=== PATIENT | female | born 1945 | race Caucasian/White ===

== ENCOUNTER → 2016-07-12 | Outpatient (CLI) | payer MEDICARE ==
[~2016-07-12] MED LIST: ALLO10TA PO; CARV25TA PO; CO Q100C10 PO; CYMB60CA3 PO; DILT240C77 PO; FENO145T PO; HYDR-4266 PO; INSUH10VL SC; K-TA10TA2 PO; KLON0.5T PO; LASI20TA PO; LEVEINJ SC; LEVO112T2 PO; LISI40TAB PO; LIVA4TAB PO; MAG400TA PO; TRIC145T PO; VALI5TAB PO; VITAMIN D PO; ZOLO25TA PO; ZOLO50TA PO
[2016-07-12 17:07] LABS: ALBUMIN 3.8 GM/DL (3.2-5.2); ALBUMIN/GLOBULIN RATIO 1.15 (1.00-1.93); BILIRUBIN,TOTAL 0.4 MG/DL (0.2-1.0); CALCIUM LEVEL 9.6 MG/DL (8.8-10.2); CREATININE FOR GFR 1.86 MG/DL (0.55-1.02); GLOMERULAR FILTRATION RATE 28.4 (>39); POTASSIUM SERUM 4.6 MEQ/L (3.5-5.1); TOTAL PROTEIN 7.1 GM/DL (6.4-8.2)
== END ==
LOC: M WUC 10:36
PROVIDERS: ATTEND Physician Assistant
DX: N18.3 Chronic kidney disease, stage 3 (moderate) (principal); E78.2 Mixed hyperlipidemia; E11.21 Type 2 diabetes mellitus with diabetic nephropathy

== ENCOUNTER → 2016-10-12 | Outpatient (CLI) | payer MEDICARE ==
[2016-10-12 15:37] LABS: ALBUMIN 3.5 GM/DL (3.2-5.2); ALBUMIN/GLOBULIN RATIO 1.06 (1.00-1.93); BILIRUBIN,TOTAL 0.3 MG/DL (0.2-1.0); CALCIUM LEVEL 9.5 MG/DL (8.8-10.2); FREE T4 1.27 NG/DL (0.76-1.46); GLOMERULAR FILTRATION RATE 26.1 (>39); POTASSIUM SERUM 4.5 MEQ/L (3.5-5.1); TOTAL PROTEIN 6.8 GM/DL (6.4-8.2); URIC ACID 5.9 MG/DL (2.6-6.0)
== END ==
LOC: M WUC 09:47
PROVIDERS: ATTEND Family Medicine
DX: E55.9 Vitamin D deficiency, unspecified (principal); E11.21 Type 2 diabetes mellitus with diabetic nephropathy

== ENCOUNTER → 2016-12-15 | Outpatient (CLI) | payer MEDICARE ==
[~2016-12-15] MED LIST changes: +HYDR-3910 PO; -HYDR-4266 PO; -TRIC145T PO; +TRIC145T22 PO
[2016-12-15 16:42] LABS: ALBUMIN 3.9 GM/DL (3.2-5.2); ALBUMIN/GLOBULIN RATIO 1.26 (1.00-1.93); BILIRUBIN,TOTAL 0.4 MG/DL (0.2-1.0); CALCIUM LEVEL 9.4 MG/DL (8.8-10.2); CREATININE FOR GFR 2.07 MG/DL (0.55-1.02); GLOMERULAR FILTRATION RATE 25.1 (>39)
== END ==
LOC: M WUC 12:57
PROVIDERS: ATTEND Family Medicine
DX: E11.21 Type 2 diabetes mellitus with diabetic nephropathy (principal)

== ENCOUNTER → 2017-01-10 | Outpatient (CLI) | payer MEDICARE ==
[2017-01-10 14:18] LABS: CALCIUM LEVEL 9.8 MG/DL (8.8-10.2); CREATININE FOR GFR 1.93 MG/DL (0.55-1.02); GLOMERULAR FILTRATION RATE 27.2 (>39); POTASSIUM SERUM 4.4 MEQ/L (3.5-5.1)
== END ==
LOC: M WUC 10:34
PROVIDERS: ATTEND Physician Assistant
DX: E11.21 Type 2 diabetes mellitus with diabetic nephropathy (principal)

== ENCOUNTER → 2017-05-04 | Outpatient (CLI) | payer MEDICARE ==
[2017-05-04 11:43] LABS: BASO # 0.1 10^3/uL (0.0-0.2); BASO % 0.7 % (0.0-1.0); EOS # 0.1 10^3/uL (0.0-0.50); EOS % 1.9 % (0.0-3.0); HEMATOCRIT 36.9 % (36.0-47.0); HEMOGLOBIN 11.8 g/dl (12.0-16.0); IMMATURE GRANULOCYTE % 0.5 % (0-0); LYMPH # 0.8 10^3/uL (1.5-4.5); LYMPH % 11.1 % (24.0-44.0); MEAN CORPUSCULAR HEMOGLOBIN 29.2 pg (27.0-33.0); MEAN CORPUSCULAR VOLUME 91.3 fl (80.0-96.0); MONO # 0.6 10^3/uL (0.0-0.8); MONO % 8.1 % (0.0-5.0); NEUTROPHILS # 5.7 10^3/uL (1.8-7.7); NEUTROPHILS % 77.7 % (36.0-66.0); PLATELET COUNT, AUTOMATED 224 10^3/uL (150-450); RED BLOOD COUNT 4.04 10^6/uL (4.00-5.40); RED CELL DISTRIBUTION WIDTH 13.9 % (11.5-14.5); WHITE BLOOD COUNT 7.3 10^3/uL (4.0-10.0)
[2017-05-04 12:17] LABS: ALBUMIN 3.7 GM/DL (3.2-5.2); ALBUMIN/GLOBULIN RATIO 1.19 (1.00-1.93); ALKALINE PHOSPHATASE 36 U/L (45-117); ALT/SGPT 27 U/L (12-78); ANION GAP 6 MEQ/L (8-16); AST/SGOT 18 U/L (7-37); BILIRUBIN,TOTAL 0.4 MG/DL (0.2-1.0); BLOOD UREA NITROGEN 63 MG/DL (7-18); CALCIUM LEVEL 10.1 MG/DL (8.8-10.2); CARBON DIOXIDE LEVEL 30 MEQ/L (21-32); CHLORIDE LEVEL 105 MEQ/L (98-107); CHOLESTEROL LEVEL 239 MG/DL (<200); CHOLESTEROL RISK RATIO 4.509 (<5); FREE T4 1.26 NG/DL (0.76-1.46); GLOMERULAR FILTRATION RATE 21.1 (>39); GLUCOSE, FASTING 122 MG/DL (83-110); HDL CHOLESTEROL 53 MG/DL (>40); NON-HDL-C 186 MG/DL; POTASSIUM SERUM 4.4 MEQ/L (3.5-5.1); SODIUM LEVEL 141 MEQ/L (136-145); TOTAL PROTEIN 6.8 GM/DL (6.4-8.2); TRIGLYCERIDES LEVEL 235 MG/DL (<150)
[2017-05-04 12:18] LABS: ESTIMATED AVERAGE GLUCOSE 154 MG/DL (60-110)
[2017-05-04 12:23] LABS: CREATININE, URINE 83.4 MG/DL; MAU/CREAT RATIO 7.1 MCG/MG (0.0-30.0)
== END ==
LOC: M WUC 10:02
DX: E11.21 Type 2 diabetes mellitus with diabetic nephropathy (principal); E78.2 Mixed hyperlipidemia; E03.8 Other specified hypothyroidism
CPT/HCPCS: 84443

== ENCOUNTER → 2017-10-26 | Outpatient (CLI) | payer MEDICARE ==
[2017-10-26 13:06] LABS: BASO # 0.1 10^3/uL (0.0-0.2); BASO % 1.3 % (0.0-1.0); EOS # 0.2 10^3/uL (0.0-0.50); EOS % 3.7 % (0.0-3.0); HEMATOCRIT 35.4 % (36.0-47.0); HEMOGLOBIN 11.2 g/dl (12.0-15.5); IMMATURE GRANULOCYTE % 0.6 % (0-3.0); LYMPH % 19.2 % (24.0-44.0); MEAN CORPUSCULAR HEMOGLOBIN 28.6 pg (27.0-33.0); MEAN CORPUSCULAR HGB CONC 31.6 g/dl (32.0-36.5); MEAN CORPUSCULAR VOLUME 90.5 fl (80.0-96.0); MONO # 0.5 10^3/uL (0.0-0.8); MONO % 9.2 % (0.0-5.0); NEUTROPHILS # 3.6 10^3/uL (1.8-7.7); PLATELET COUNT, AUTOMATED 227 10^3/uL (150-450); RED BLOOD COUNT 3.91 10^6/uL (4.00-5.40); RED CELL DISTRIBUTION WIDTH 14.3 % (11.5-14.5); WHITE BLOOD COUNT 5.4 10^3/uL (4.0-10.0)
[2017-10-26 13:55] LABS: ALBUMIN 3.7 GM/DL (3.2-5.2); ALBUMIN/GLOBULIN RATIO 1.12 (1.00-1.93); ALKALINE PHOSPHATASE 35 U/L (45-117); ALT/SGPT 26 U/L (12-78); ANION GAP 10 MEQ/L (8-16); AST/SGOT 17 U/L (7-37); BILIRUBIN,TOTAL 0.3 MG/DL (0.2-1.0); BLOOD UREA NITROGEN 57 MG/DL (7-18); CALCIUM LEVEL 9.1 MG/DL (8.8-10.2); CARBON DIOXIDE LEVEL 26 MEQ/L (21-32); CHLORIDE LEVEL 108 MEQ/L (98-107); CHOLESTEROL LEVEL 256 MG/DL (<200); CHOLESTEROL RISK RATIO 5.224 (<5); FREE T4 1.11 NG/DL (0.76-1.46); GLUCOSE, FASTING 74 MG/DL (70-100); HDL CHOLESTEROL 49 MG/DL (>40); LDL CHOLESTEROL 147.4 MG/DL (<100); NON-HDL-C 207 MG/DL; POTASSIUM SERUM 4.2 MEQ/L (3.5-5.1); SODIUM LEVEL 144 MEQ/L (136-145); TRIGLYCERIDES LEVEL 298 MG/DL (<150)
== END ==
LOC: M WUC 10:35
DX: E11.21 Type 2 diabetes mellitus with diabetic nephropathy (principal); E78.2 Mixed hyperlipidemia
CPT/HCPCS: 84443

== ENCOUNTER → 2018-01-30 | Outpatient (CLI) | payer MEDICARE ==
[2018-01-30 13:13] LABS: BASO # 0.1 10^3/uL (0.0-0.2); BASO % 1.1 % (0.0-1.0); EOS # 0.1 10^3/uL (0.0-0.50); EOS % 2.6 % (0.0-3.0); HEMATOCRIT 36.9 % (36.0-47.0); HEMOGLOBIN 11.8 g/dl (12.0-15.5); IMMATURE GRANULOCYTE % 0.8 % (0-3.0); LYMPH # 0.9 10^3/uL (1.5-4.5); LYMPH % 17.6 % (24.0-44.0); MEAN CORPUSCULAR HEMOGLOBIN 29.4 pg (27.0-33.0); MEAN CORPUSCULAR VOLUME 91.8 fl (80.0-96.0); MONO # 0.6 10^3/uL (0.0-0.8); MONO % 10.8 % (0.0-5.0); NEUTROPHILS # 3.6 10^3/uL (1.8-7.7); NEUTROPHILS % 67.1 % (36.0-66.0); PLATELET COUNT, AUTOMATED 223 10^3/uL (150-450); RED BLOOD COUNT 4.02 10^6/uL (4.00-5.40); RED CELL DISTRIBUTION WIDTH 14.4 % (11.5-14.5); WHITE BLOOD COUNT 5.3 10^3/uL (4.0-10.0)
[2018-01-30 13:29] LABS: ALBUMIN 3.5 GM/DL (3.2-5.2); ALBUMIN/GLOBULIN RATIO 1.09 (1.00-1.93); ALKALINE PHOSPHATASE 39 U/L (45-117); ALT/SGPT 22 U/L (12-78); ANION GAP 7 MEQ/L (8-16); AST/SGOT 16 U/L (7-37); BILIRUBIN,TOTAL 0.3 MG/DL (0.2-1.0); BLOOD UREA NITROGEN 43 MG/DL (7-18); CALCIUM LEVEL 9.9 MG/DL (8.8-10.2); CARBON DIOXIDE LEVEL 28 MEQ/L (21-32); CHLORIDE LEVEL 110 MEQ/L (98-107); CREATININE FOR GFR 1.54 MG/DL (0.55-1.30); GLOMERULAR FILTRATION RATE 35.2 (>39); GLUCOSE, FASTING 113 MG/DL (70-100); POTASSIUM SERUM 4.4 MEQ/L (3.5-5.1); SODIUM LEVEL 145 MEQ/L (136-145); TOTAL PROTEIN 6.7 GM/DL (6.4-8.2)
[2018-01-30 17:53] LABS: ESTIMATED AVERAGE GLUCOSE 160 MG/DL (60-110); HEMOGLOBIN A1c 7.2 %
== END ==
LOC: M WUC 10:13
DX: E11.21 Type 2 diabetes mellitus with diabetic nephropathy (principal)
CPT/HCPCS: 80053

== ENCOUNTER → 2018-04-30 | Outpatient (CLI) | payer MEDICARE ==
[~2018-04-30] MED LIST changes: -FENO145T PO; +FENO145T13 PO; -LASI20TA PO; +LASI20TA3 PO
[2018-04-30 21:01] LABS: BASO # 0.1 10^3/uL (0.0-0.2); BASO % 0.5 % (0.0-1.0); EOS # 0.2 10^3/uL (0.0-0.50); EOS % 1.6 % (0.0-3.0); HEMATOCRIT 37.6 % (36.0-47.0); HEMOGLOBIN 11.6 g/dl (12.0-15.5); LYMPH % 9.8 % (24.0-44.0); MEAN CORPUSCULAR HEMOGLOBIN 28.7 pg (27.0-33.0); MEAN CORPUSCULAR HGB CONC 30.9 g/dl (32.0-36.5); MEAN CORPUSCULAR VOLUME 93.1 fl (80.0-96.0); MONO # 0.8 10^3/uL (0.0-0.8); MONO % 7.7 % (0.0-5.0); NEUTROPHILS # 7.8 10^3/uL (1.8-7.7); PLATELET COUNT, AUTOMATED 252 10^3/uL (150-450); RED BLOOD COUNT 4.04 10^6/uL (4.00-5.40); WHITE BLOOD COUNT 9.8 10^3/uL (4.0-10.0)
[2018-04-30 21:06] LABS: ALBUMIN 3.7 GM/DL (3.2-5.2); BILIRUBIN,TOTAL 0.4 MG/DL (0.2-1.0); CHOLESTEROL RISK RATIO 5.173 (<5); CREATININE FOR GFR 1.68 MG/DL (0.55-1.30); FREE T4 1.22 NG/DL (0.76-1.46); GLOMERULAR FILTRATION RATE 31.7 (>39); POTASSIUM SERUM 4.4 MEQ/L (3.5-5.1); THYROID STIMULATING HORMONE 1.71 uIU/ML (0.358-3.740); TOTAL PROTEIN 7.2 GM/DL (6.4-8.2)
[2018-04-30 21:35] LABS: HEMOGLOBIN A1c 7.7 %
== END ==
LOC: M WUC 11:24
PROVIDERS: ATTEND Physician Assistant
DX: E11.21 Type 2 diabetes mellitus with diabetic nephropathy (principal); E78.2 Mixed hyperlipidemia; G47.33 Obstructive sleep apnea (adult) (pediatric)

== ENCOUNTER → 2018-05-14 | Outpatient (REF) | payer MEDICARE | LOC: M LAB REF 16:55 | PROVIDERS: ATTEND Physician Assistant | DX: J01.00 Acute maxillary sinusitis, unspecified (principal) ==

== ENCOUNTER → 2018-06-13 | Outpatient (CLI) | payer MEDICARE ==
[2018-06-13 19:47] LABS: BASO # 0.1 10^3/uL (0.0-0.2); BASO % 0.8 % (0.0-1.0); EOS # 0.1 10^3/uL (0.0-0.50); EOS % 2.1 % (0.0-3.0); HEMATOCRIT 38.7 % (36.0-47.0); HEMOGLOBIN 12.4 g/dl (12.0-15.5); LYMPH % 16.2 % (24.0-44.0); MEAN CORPUSCULAR HEMOGLOBIN 28.8 pg (27.0-33.0); MEAN CORPUSCULAR VOLUME 89.8 fl (80.0-96.0); MONO # 0.5 10^3/uL (0.0-0.8); MONO % 7.9 % (0.0-5.0); NEUTROPHILS # 4.6 10^3/uL (1.8-7.7); NEUTROPHILS % 72.2 % (36.0-66.0); PLATELET COUNT, AUTOMATED 251 10^3/uL (150-450); RED BLOOD COUNT 4.31 10^6/uL (4.00-5.40); WHITE BLOOD COUNT 6.3 10^3/uL (4.0-10.0)
[2018-06-13 19:49] LABS: ALBUMIN 3.8 GM/DL (3.2-5.2); BILIRUBIN,TOTAL 0.3 MG/DL (0.2-1.0); CALCIUM LEVEL 9.3 MG/DL (8.8-10.2); CREATININE FOR GFR 1.62 MG/DL (0.55-1.30); GLOMERULAR FILTRATION RATE 33.1 (>39); POTASSIUM SERUM 4.6 MEQ/L (3.5-5.1); TOTAL PROTEIN 7.5 GM/DL (6.4-8.2)
== END ==
LOC: M WUC 18:17
PROVIDERS: ATTEND Physician Assistant
DX: R10.814 Left lower quadrant abdominal tenderness (principal)

== ENCOUNTER → 2018-09-03 | Outpatient (CLI) | payer MEDICARE ==
[~2018-09-03] MED LIST changes: +DILT1CAP6 PO; -DILT240C77 PO; +LISI40TA52 PO; -LISI40TAB PO
[2018-09-03 12:54] LABS: BASO # 0.1 10^3/uL (0.0-0.2); BASO % 1.2 % (0.0-1.0); EOS # 0.2 10^3/uL (0.0-0.50); LYMPH # 0.9 10^3/uL (1.5-4.5); LYMPH % 18.7 % (24.0-44.0); MEAN CORPUSCULAR HEMOGLOBIN 29.5 pg (27.0-33.0); MEAN CORPUSCULAR HGB CONC 31.6 g/dl (32.0-36.5); MEAN CORPUSCULAR VOLUME 93.4 fl (80.0-96.0); MONO # 0.5 10^3/uL (0.0-0.8); MONO % 9.4 % (0.0-5.0); NEUTROPHILS # 3.3 10^3/uL (1.8-7.7); NEUTROPHILS % 67.1 % (36.0-66.0); PLATELET COUNT, AUTOMATED 169 10^3/uL (150-450); RED BLOOD COUNT 4.07 10^6/uL (4.00-5.40)
[2018-09-03 13:12] LABS: ALBUMIN 3.5 GM/DL (3.2-5.2); BILIRUBIN,TOTAL 0.3 MG/DL (0.2-1.0); CALCIUM LEVEL 8.9 MG/DL (8.8-10.2); CHOLESTEROL RISK RATIO 4.775 (<5); CREATININE FOR GFR 1.61 MG/DL (0.55-1.30); GLOMERULAR FILTRATION RATE 33.3 (>39); POTASSIUM SERUM 4.7 MEQ/L (3.5-5.1); TOTAL PROTEIN 6.9 GM/DL (6.4-8.2)
[2018-09-03 13:43] LABS: MALB URINE SIEMENS 43.8 MG/L; MAU/CREAT RATIO 41.7 MCG/MG (0.0-30.0)
[2018-09-03 13:48] LABS: HEMOGLOBIN A1c 7.5 %
== END ==
LOC: M WUC 10:07
PROVIDERS: ATTEND Family Medicine
DX: E11.21 Type 2 diabetes mellitus with diabetic nephropathy (principal); E78.2 Mixed hyperlipidemia

== ENCOUNTER → 2018-09-13 | Outpatient (CLI) | payer MEDICARE ==
[2018-09-13 14:24] LABS: COLLAGEN EPINEPHRINE 154 SECONDS (74-162)
== END ==
LOC: M LAB 13:02
PROVIDERS: ATTEND Ophthalmology
DX: H02.831 Dermatochalasis of right upper eyelid (principal)

== ENCOUNTER → 2018-12-02 | Outpatient (CLI) | payer MEDICARE ==
[2018-12-02 13:48] LABS: BASO # 0.1 10^3/uL (0.0-0.2); EOS # 0.2 10^3/uL (0.0-0.50); EOS % 3.3 % (0.0-3.0); HEMATOCRIT 36.2 % (36.0-47.0); HEMOGLOBIN 11.4 g/dl (12.0-15.5); LYMPH # 0.9 10^3/uL (1.5-4.5); LYMPH % 18.1 % (24.0-44.0); MEAN CORPUSCULAR HEMOGLOBIN 28.6 pg (27.0-33.0); MEAN CORPUSCULAR HGB CONC 31.5 g/dl (32.0-36.5); MONO # 0.5 10^3/uL (0.0-0.8); MONO % 10.3 % (0.0-5.0); NEUTROPHILS # 3.4 10^3/uL (1.8-7.7); NEUTROPHILS % 66.5 % (36.0-66.0); PLATELET COUNT, AUTOMATED 175 10^3/uL (150-450); RED BLOOD COUNT 3.98 10^6/uL (4.00-5.40); WHITE BLOOD COUNT 5.1 10^3/uL (4.0-10.0)
[2018-12-02 14:00] LABS: ALBUMIN 3.3 GM/DL (3.2-5.2); BILIRUBIN,TOTAL 0.3 MG/DL (0.2-1.0); CALCIUM LEVEL 8.9 MG/DL (8.8-10.2); CHOLESTEROL RISK RATIO 4.627 (<5); CREATININE FOR GFR 1.5 MG/DL (0.55-1.30); FREE T4 1.05 NG/DL (0.76-1.46); GLOMERULAR FILTRATION RATE 36.1 (>39); POTASSIUM SERUM 4.2 MEQ/L (3.5-5.1); THYROID STIMULATING HORMONE 2.28 uIU/ML (0.358-3.740); TOTAL PROTEIN 6.4 GM/DL (6.4-8.2)
[2018-12-02 14:35] LABS: HEMOGLOBIN A1c 7.7 %
== END ==
LOC: M WUC 10:08
PROVIDERS: ATTEND Physician Assistant
DX: E11.21 Type 2 diabetes mellitus with diabetic nephropathy (principal); G47.33 Obstructive sleep apnea (adult) (pediatric); E03.8 Other specified hypothyroidism

== ENCOUNTER → 2019-01-15 | Outpatient (CLI) | payer MEDICARE ==
[2019-01-15 16:26] LABS: COLLAGEN EPINEPHRINE 210 SECONDS (74-162)
[2019-01-15 16:46] LABS: COLLAGEN ADP 95 SECONDS (56-103)
== END ==
LOC: M LAB 14:29
PROVIDERS: ATTEND Ophthalmology
DX: H02.422 Myogenic ptosis of left eyelid (principal); L03.213 Periorbital cellulitis

== ENCOUNTER → 2019-01-30 | Outpatient (CLI) | payer MEDICARE ==
--- NOTE | 2019-01-30 17:54 | REPVR ---
PROCEDURE INFORMATION: Exam: US Duplex Left Lower Extremity Veins, Limited Exam date and time: 01/30/2019 5:09 PM Clinical history: 73 years old, female; Pain; Leg, lower; Left; Additional info: Lt leg pain swelling ? dvt TECHNIQUE: Imaging protocol: Real-time Duplex ultrasound of the Left Lower Extremity with 2-D gonzalez scale, color Doppler flow and spectral waveform analysis with image documentation. Limited exam focused on the left lower extremity veins. COMPARISON: No relevant prior studies available. FINDINGS: Left deep veins: Unremarkable. The common femoral, femoral, proximal profunda femoral and popliteal veins are patent without thrombus. Normal Doppler waveforms. Normal compressibility and/or augmentation response. Left superficial veins: Unremarkable. Saphenofemoral junction is patent without thrombus. Soft tissues: Are 2 round cystic-appearing areas in the popliteal fossa. MRI could be used for further evaluation of this. IMPRESSION: No evidence of deep vein thrombosis. 2 round cystic areas within the popliteal fossa measuring 2 CM each. MRI could be used for further evaluation. Electronically signed by: Jose Goldberg On 01/30/2019 17:54:20 PM
== END ==
LOC: M RAD 16:51
DX: M79.605 Pain in left leg (principal)

== ENCOUNTER → 2019-01-31 | Outpatient (CLI) | payer MEDICARE ==
[2019-01-31 16:11] LABS: COLLAGEN EPINEPHRINE 135 SECONDS (74-162)
== END ==
LOC: M LAB 14:44
PROVIDERS: ATTEND Ophthalmology
DX: H02.422 Myogenic ptosis of left eyelid (principal); L03.213 Periorbital cellulitis

== ENCOUNTER → 2019-04-01 | Outpatient (CLI) | payer MEDICARE ==
[2019-04-01 17:18] LABS: ALBUMIN 3.7 GM/DL (3.2-5.2); BILIRUBIN,TOTAL 0.4 MG/DL (0.2-1.0); CALCIUM LEVEL 8.9 MG/DL (8.8-10.2); CHOLESTEROL RISK RATIO 4.264 (<5); CREATININE FOR GFR 1.74 MG/DL (0.55-1.30); FREE T4 1.11 NG/DL (0.76-1.46); GLOMERULAR FILTRATION RATE 30.4 (>39); POTASSIUM SERUM 4.3 MEQ/L (3.5-5.1); THYROID STIMULATING HORMONE 2.9 uIU/ML (0.358-3.740); TOTAL PROTEIN 6.8 GM/DL (6.4-8.2)
[2019-04-01 17:23] LABS: HEMOGLOBIN A1c 6.6 %
== END ==
LOC: M WUC 11:18
PROVIDERS: ATTEND Family Medicine
DX: E11.22 Type 2 diabetes mellitus with diabetic chronic kidney disease (principal); E78.2 Mixed hyperlipidemia

== ENCOUNTER → 2019-08-05 | Outpatient (REF) | payer MEDICARE ==
[~2019-08-05] MED LIST changes: -FENO145T13 PO; +FENO145T7 PO
[2019-08-05 18:03] LABS: ALBUMIN 3.7 GM/DL (3.2-5.2); BILIRUBIN,DIRECT 0.1 MG/DL (0.0-0.2); BILIRUBIN,TOTAL 0.3 MG/DL (0.2-1.0); FREE T4 1.33 NG/DL (0.76-1.46); THYROID STIMULATING HORMONE 2.84 uIU/ML (0.358-3.740)
== END ==
LOC: M LAB REF 17:26
PROVIDERS: ATTEND Nurse Practitioner Family
DX: E78.5 Hyperlipidemia, unspecified (principal); E03.9 Hypothyroidism, unspecified

== ENCOUNTER → 2019-09-26 | Outpatient (CLI) | payer MEDICARE ==
[2019-09-26 17:42] LABS: BASO # 0.1 10^3/uL (0.0-0.2); BASO % 0.8 % (0.0-1.0); EOS # 0.2 10^3/uL (0.0-0.5); EOS % 2.8 % (0.0-3.0); HEMATOCRIT 38.3 % (36.0-47.0); HEMOGLOBIN 12.2 g/dl (12.0-15.5); LYMPH # 1.1 10^3/uL (1.5-5.0); LYMPH % 17.7 % (24.0-44.0); MEAN CORPUSCULAR HEMOGLOBIN 29.5 pg (27.0-33.0); MEAN CORPUSCULAR HGB CONC 31.9 g/dl (32.0-36.5); MEAN CORPUSCULAR VOLUME 92.5 fl (80.0-96.0); MONO # 0.6 10^3/uL (0.0-0.8); MONO % 9.4 % (0.0-5.0); NEUTROPHILS # 4.2 10^3/uL (1.5-8.5); NEUTROPHILS % 68.6 % (36.0-66.0); PLATELET COUNT, AUTOMATED 218 10^3/uL (150-450); RED BLOOD COUNT 4.14 10^6/uL (4.00-5.40); WHITE BLOOD COUNT 6.1 10^3/uL (4.0-10.0)
[2019-09-26 17:59] LABS: CREATININE, URINE 78.1 MG/DL; MAU/CREAT RATIO 252.2 MCG/MG (0.0-30.0)
[2019-09-26 18:09] LABS: ALBUMIN 3.6 GM/DL (3.2-5.2); BILIRUBIN,TOTAL 0.3 MG/DL (0.2-1.0); CALCIUM LEVEL 8.9 MG/DL (8.8-10.2); CHOLESTEROL RISK RATIO 4.934 (<5); CREATININE FOR GFR 1.57 MG/DL (0.55-1.30); GLOMERULAR FILTRATION RATE 34.2 (>39); POTASSIUM SERUM 4.7 MEQ/L (3.5-5.1); TOTAL PROTEIN 6.6 GM/DL (6.4-8.2)
[2019-09-26 19:02] LABS: HEMOGLOBIN A1c 7.2 %
== END ==
LOC: M WUC 10:32
PROVIDERS: ATTEND Family Medicine
DX: E11.22 Type 2 diabetes mellitus with diabetic chronic kidney disease (principal); E78.2 Mixed hyperlipidemia

== ENCOUNTER → 2019-12-26 | Outpatient (CLI) | payer MEDICARE ==
[2019-12-26 13:03] LABS: ALBUMIN 3.7 GM/DL (3.2-5.2); BILIRUBIN,TOTAL 0.3 MG/DL (0.2-1.0); CALCIUM LEVEL 9.2 MG/DL (8.8-10.2); CREATININE FOR GFR 2.19 MG/DL (0.55-1.30); GLOMERULAR FILTRATION RATE 23.3 (>39); POTASSIUM SERUM 4.4 MEQ/L (3.5-5.1); TOTAL PROTEIN 6.7 GM/DL (6.4-8.2)
[2019-12-26 15:26] LABS: HEMOGLOBIN A1c 6.5 %
== END ==
LOC: M WUC 09:14
PROVIDERS: ATTEND Physician Assistant
DX: E11.22 Type 2 diabetes mellitus with diabetic chronic kidney disease (principal)

== ENCOUNTER → 2020-03-29 | Outpatient (CLI) | payer MEDICARE ==
[2020-03-29 16:24] LABS: BASO % 0.5 % (0.0-1.0); EOS # 0.2 10^3/uL (0.0-0.5); EOS % 3.3 % (0.0-3.0); HEMATOCRIT 36.3 % (36.0-47.0); HEMOGLOBIN 11.1 g/dl (12.0-15.5); LYMPH # 1.1 10^3/uL (1.5-5.0); LYMPH % 19.4 % (24.0-44.0); MEAN CORPUSCULAR HEMOGLOBIN 28.2 pg (27.0-33.0); MEAN CORPUSCULAR HGB CONC 30.6 g/dl (32.0-36.5); MEAN CORPUSCULAR VOLUME 92.4 fl (80.0-96.0); MONO # 0.5 10^3/uL (0.0-0.8); MONO % 9.1 % (0.0-5.0); NEUTROPHILS # 3.7 10^3/uL (1.5-8.5); NEUTROPHILS % 67.2 % (36.0-66.0); PLATELET COUNT, AUTOMATED 222 10^3/uL (150-450); RED BLOOD COUNT 3.93 10^6/uL (4.00-5.40); WHITE BLOOD COUNT 5.5 10^3/uL (4.0-10.0)
[2020-03-29 16:52] LABS: ALBUMIN 3.6 GM/DL (3.2-5.2); BILIRUBIN,TOTAL 0.3 MG/DL (0.2-1.0); CALCIUM LEVEL 8.9 MG/DL (8.8-10.2); CREATININE FOR GFR 1.83 MG/DL (0.55-1.30); GLOMERULAR FILTRATION RATE 28.6 (>39); POTASSIUM SERUM 4.7 MEQ/L (3.5-5.1); TOTAL PROTEIN 6.7 GM/DL (6.4-8.2)
[2020-03-29 18:19] LABS: HEMOGLOBIN A1c 7.4 %
== END ==
LOC: M WUC 10:40
PROVIDERS: ATTEND Family Medicine
DX: E11.22 Type 2 diabetes mellitus with diabetic chronic kidney disease (principal)

== ENCOUNTER → 2020-06-28 | Outpatient (CLI) | payer MEDICARE ==
[~2020-06-28] MED LIST changes: -MAG400TA PO; +MAGN400T35 PO
[2020-06-28 12:50] LABS: HEMOGLOBIN A1c 6.6 %
[2020-06-28 13:10] LABS: CALCIUM LEVEL 9.3 MG/DL (8.8-10.2); CHOLESTEROL RISK RATIO 4.058 (<5); CREATININE FOR GFR 1.96 MG/DL (0.55-1.30); FREE T4 0.94 NG/DL (0.76-1.46); GLOMERULAR FILTRATION RATE 26.4 (>39); POTASSIUM SERUM 4.6 MEQ/L (3.5-5.1); THYROID STIMULATING HORMONE 2.39 uIU/ML (0.358-3.740)
== END ==
LOC: M WUC 09:50
PROVIDERS: ATTEND Physician Assistant
DX: E11.22 Type 2 diabetes mellitus with diabetic chronic kidney disease (principal); E78.2 Mixed hyperlipidemia

== ENCOUNTER → 2020-10-04 | Outpatient (CLI) | payer MEDICARE ==
[2020-10-04 13:29] LABS: BASO # 0.1 10^3/uL (0.0-0.2); BASO % 1.2 % (0.0-1.0); EOS # 0.2 10^3/uL (0.0-0.5); EOS % 3.3 % (0.0-3.0); HEMOGLOBIN 10.8 g/dl (12.0-15.5); LYMPH % 19.5 % (24.0-44.0); MEAN CORPUSCULAR HEMOGLOBIN 28.6 pg (27.0-33.0); MEAN CORPUSCULAR HGB CONC 30.9 g/dl (32.0-36.5); MEAN CORPUSCULAR VOLUME 92.8 fl (80.0-96.0); MONO # 0.5 10^3/uL (0.0-0.8); MONO % 8.7 % (2.0-8.0); NEUTROPHILS # 3.5 10^3/uL (1.5-8.5); NEUTROPHILS % 66.9 % (36.0-66.0); PLATELET COUNT, AUTOMATED 222 10^3/uL (150-450); RED BLOOD COUNT 3.77 10^6/uL (4.00-5.40); WHITE BLOOD COUNT 5.2 10^3/uL (4.0-10.0)
[2020-10-04 13:57] LABS: ALBUMIN 3.4 GM/DL (3.2-5.2); BILIRUBIN,TOTAL 0.3 MG/DL (0.2-1.0); CALCIUM LEVEL 9.5 MG/DL (8.8-10.2); CHOLESTEROL RISK RATIO 3.705 (<5); CREATININE FOR GFR 1.31 MG/DL (0.55-1.30); POTASSIUM SERUM 4.2 MEQ/L (3.5-5.1); TOTAL PROTEIN 6.7 GM/DL (6.4-8.2)
[2020-10-04 14:28] LABS: MAU/CREAT RATIO 1542.6 MCG/MG (0.0-30.0)
[2020-10-04 15:21] LABS: HEMOGLOBIN A1c 6.2 %
== END ==
LOC: M WUC 09:38
PROVIDERS: ATTEND Family Medicine
DX: E11.22 Type 2 diabetes mellitus with diabetic chronic kidney disease (principal); E78.2 Mixed hyperlipidemia; N18.4 Chronic kidney disease, stage 4 (severe)

== ENCOUNTER → 2020-11-11 | Outpatient (REF) | payer MEDICARE | LOC: M LAB REF 17:16 | PROVIDERS: ATTEND Nurse Practitioner Family | DX: E83.42 Hypomagnesemia (principal) ==

== ENCOUNTER → 2020-12-17 | Outpatient (REF) | payer MEDICARE | LOC: M LAB REF 17:59 | PROVIDERS: ATTEND Nurse Practitioner Family | DX: E83.42 Hypomagnesemia (principal) ==

== ENCOUNTER → 2021-01-04 | Outpatient (CLI) | payer MEDICARE ==
[2021-01-04 12:17] LABS: CREATININE FOR GFR 1.43 MG/DL (0.55-1.30)
[2021-01-04 12:18] LABS: BILIRUBIN,TOTAL 0.3 MG/DL (0.2-1.0); CALCIUM LEVEL 8.9 MG/DL (8.8-10.2); TOTAL PROTEIN 6.5 GM/DL (6.4-8.2)
[2021-01-04 15:23] LABS: HEMOGLOBIN A1c 7.1 %
== END ==
LOC: M WUC 10:01
PROVIDERS: ATTEND Physician Assistant
DX: E11.22 Type 2 diabetes mellitus with diabetic chronic kidney disease (principal)

== ENCOUNTER → 2021-04-06 | Outpatient (CLI) | payer MEDICARE ==
[~2021-04-06] MED LIST changes: -CYMB60CA3 PO; +CYMB60CA4 PO
[2021-04-06 12:08] LABS: BASO # 0.1 10^3/uL (0.0-0.2); BASO % 0.6 % (0.0-1.0); EOS # 0.1 10^3/uL (0.0-0.5); EOS % 1.7 % (0.0-3.0); HEMATOCRIT 36.7 % (36.0-47.0); HEMOGLOBIN 11.5 g/dl (12.0-15.5); LYMPH # 0.9 10^3/uL (1.5-5.0); LYMPH % 11.3 % (24.0-44.0); MEAN CORPUSCULAR HEMOGLOBIN 29.3 pg (27.0-33.0); MEAN CORPUSCULAR HGB CONC 31.3 g/dl (32.0-36.5); MEAN CORPUSCULAR VOLUME 93.6 fl (80.0-96.0); MONO # 0.6 10^3/uL (0.0-0.8); NEUTROPHILS # 6.6 10^3/uL (1.5-8.5); NEUTROPHILS % 79.2 % (36.0-66.0); PLATELET COUNT, AUTOMATED 224 10^3/uL (150-450); RED BLOOD COUNT 3.92 10^6/uL (4.00-5.40); WHITE BLOOD COUNT 8.3 10^3/uL (4.0-10.0)
[2021-04-06 12:49] LABS: ALBUMIN 3.2 GM/DL (3.2-5.2); BILIRUBIN,TOTAL 0.4 MG/DL (0.2-1.0); CALCIUM LEVEL 9.1 MG/DL (8.8-10.2); CHOLESTEROL RISK RATIO 3.826 (<5); CREATININE FOR GFR 1.52 MG/DL (0.55-1.30); FREE T4 1.02 NG/DL (0.76-1.46); GLOMERULAR FILTRATION RATE 35.3 (>39); POTASSIUM SERUM 3.7 MEQ/L (3.5-5.1); THYROID STIMULATING HORMONE 4.36 uIU/ML (0.358-3.740); TOTAL PROTEIN 6.8 GM/DL (6.4-8.2)
[2021-04-06 13:02] LABS: HEMOGLOBIN A1c 6.2 %
== END ==
LOC: M WUC 09:09
PROVIDERS: ATTEND Family Medicine
DX: E11.22 Type 2 diabetes mellitus with diabetic chronic kidney disease (principal); N18.4 Chronic kidney disease, stage 4 (severe); E78.2 Mixed hyperlipidemia

== ENCOUNTER 2021-06-26 12:15 | Emergency (ER) | payer MEDICARE ==
[~2021-06-26] VITALS: Ht 152.4 cm; Wt 75.5 kg
[2021-06-26 13:27] LABS: BASO # 0.1 10^3/uL (0.0-0.2); EOS # 0.2 10^3/uL (0.0-0.5); EOS % 3.5 % (0.0-3.0); HEMATOCRIT 34.3 % (36.0-47.0); HEMOGLOBIN 10.9 g/dl (12.0-15.5); LYMPH # 0.9 10^3/uL (1.5-5.0); LYMPH % 17.3 % (24.0-44.0); MEAN CORPUSCULAR HEMOGLOBIN 28.7 pg (27.0-33.0); MEAN CORPUSCULAR HGB CONC 31.8 g/dl (32.0-36.5); MEAN CORPUSCULAR VOLUME 90.3 fl (80.0-96.0); MONO # 0.5 10^3/uL (0.0-0.8); MONO % 9.2 % (2.0-8.0); NEUTROPHILS # 3.6 10^3/uL (1.5-8.5); NEUTROPHILS % 68.8 % (36.0-66.0); PLATELET COUNT, AUTOMATED 200 10^3/uL (150-450); WHITE BLOOD COUNT 5.2 10^3/uL (4.0-10.0)
[2021-06-26 13:59] LABS: CK-MB VALUE MASS < 1.0 NG/ML (<3.6); CPK CREATINE PHOSPHOKINASE 99 U/L (26-192); MB/CK RELATIVE INDEX 1.01 (< OR =4)
[2021-06-26 14:49] LABS: ALBUMIN 3.1 GM/DL (3.2-5.2); BILIRUBIN,DIRECT 0.1 MG/DL (0.0-0.2); BILIRUBIN,TOTAL 0.3 MG/DL (0.2-1.0); CALCIUM LEVEL 8.7 MG/DL (8.8-10.2); CREATININE FOR GFR 1.42 MG/DL (0.55-1.30); GLOMERULAR FILTRATION RATE 38.2 (>39); POTASSIUM SERUM 3.9 MEQ/L (3.5-5.1); TOTAL PROTEIN 6.3 GM/DL (6.4-8.2)
[2021-06-26] MEDS ORDERED: ISOVUE-370 76% 100ML VIAL As Ordered ONE (15:27)
[2021-06-26] MEDS ORDERED: CARVedilol 12.5 MG TAB PO ONE (16:05)
[2021-06-26] MEDS ORDERED: **hydrALAZINE** 50 MG TAB PO ONE (16:05)
[2021-06-26] MEDS ORDERED: diazePAM 2 MG TAB PO ONE (18:20)
[2021-06-26] MEDS ORDERED: MAGNESIUM CITRATE 300 ML BTL PO ONE (18:20)
[2021-06-26] MEDS ORDERED: FUROSEMIDE 40 MG TAB PO ONE (18:25)
[2021-06-26 19:46] VITALS: BP 174/78
[2021-06-26] MEDS ORDERED: MIRA3350 PO (19:54)
== END 2021-06-26 20:30 | disposition home or self-care (01) ==
LOC: EDSEX 12:15 → EDBD 12:15 → M ED 12:15
DX: R10.9 Unspecified abdominal pain (principal); R19.7 Diarrhea, unspecified; I45.10 Unspecified right bundle-branch block; I10 Essential (primary) hypertension; N28.9 Disorder of kidney and ureter, unspecified; F33.9 Major depressive disorder, recurrent, unspecified; F41.9 Anxiety disorder, unspecified; I25.2 Old myocardial infarction; M10.9 Gout, unspecified; Z87.09 Personal history of other diseases of the respiratory system; Z88.5 Allergy status to narcotic agent

== ENCOUNTER → 2021-07-07 | Outpatient (CLI) | payer MEDICARE ==
[~2021-07-07] MED LIST changes: +MIRA3350 PO
[2021-07-07 17:16] LABS: CALCIUM LEVEL 8.8 MG/DL (8.8-10.2); CHOLESTEROL RISK RATIO 3.807 (<5); CREATININE FOR GFR 1.73 MG/DL (0.55-1.30); GLOMERULAR FILTRATION RATE 30.4 (>39); POTASSIUM SERUM 4.3 MEQ/L (3.5-5.1)
[2021-07-07 17:29] LABS: AMORPHOUS SEDIMENT SMALL (NEGATIVE); APPEARANCE, URINE HAZY (CLEAR); BACTERIA, URINE AUTO NEGATIVE (NEGATIVE); BILIRUBIN, URINE AUTO NEGATIVE (NEGATIVE); BLOOD, URINE BLOOD NEGATIVE (NEGATIVE); COLOR, URINE YELLOW (YELLOW); GLUCOSE, URINE (UA) AUTO NEGATIVE (NEGATIVE); KETONE, URINE AUTO NEGATIVE (NEGATIVE); LEUKOCYTE ESTERASE, URINE AUTO 3+ (NEGATIVE); NITRITE, URINE AUTO NEGATIVE (NEGATIVE); PROTEIN, URINE AUTO 3+ mg/dL (NEGATIVE); RBC, URINE AUTO 4 /HPF (0-3); SPECIFIC GRAVITY URINE AUTO 1.013 (1.002-1.035); SQUAMOUS EPITHELIAL CELL UR AU 3 /HPF (0-6); TRANSITIONAL EPITHELIAL AUTO 1 /HPF; UROBILINOGEN, URINE AUTO 0.2 mg/dL (0.0-2.0); WBC, URINE AUTO 13 /HPF (0-3)
[2021-07-07 17:31] LABS: MAU/CREAT RATIO 2423.7 MCG/MG (0.0-30.0)
[2021-07-07 17:35] LABS: BASO # 0.1 10^3/uL (0.0-0.2); BASO % 1.2 % (0.0-1.0); EOS # 0.2 10^3/uL (0.0-0.5); HEMATOCRIT 37.3 % (36.0-47.0); HEMOGLOBIN 11.8 g/dl (12.0-15.5); LYMPH # 1.3 10^3/uL (1.5-5.0); LYMPH % 25.4 % (24.0-44.0); MEAN CORPUSCULAR HEMOGLOBIN 28.4 pg (27.0-33.0); MEAN CORPUSCULAR HGB CONC 31.6 g/dl (32.0-36.5); MEAN CORPUSCULAR VOLUME 89.7 fl (80.0-96.0); MONO # 0.5 10^3/uL (0.0-0.8); MONO % 9.6 % (2.0-8.0); NEUTROPHILS # 3.1 10^3/uL (1.5-8.5); NEUTROPHILS % 59.4 % (36.0-66.0); PLATELET COUNT, AUTOMATED 208 10^3/uL (150-450); RED BLOOD COUNT 4.16 10^6/uL (4.00-5.40); WHITE BLOOD COUNT 5.2 10^3/uL (4.0-10.0)
[2021-07-07 18:37] LABS: HEMOGLOBIN A1c 6.8 %
== END ==
LOC: M WUC 09:34
PROVIDERS: ATTEND Nurse Practitioner Adult Health
DX: E11.22 Type 2 diabetes mellitus with diabetic chronic kidney disease (principal)

== ENCOUNTER → 2021-09-27 | Outpatient (CLI) | payer MEDICARE ==
[2021-09-27 11:41] LABS: BASO # 0.1 10^3/uL (0.0-0.2); EOS # 0.2 10^3/uL (0.0-0.5); EOS % 3.3 % (0.0-3.0); HEMATOCRIT 35.8 % (36.0-47.0); HEMOGLOBIN 11.7 g/dl (12.0-15.5); LYMPH # 1.1 10^3/uL (1.5-5.0); LYMPH % 22.1 % (24.0-44.0); MEAN CORPUSCULAR HEMOGLOBIN 30.6 pg (27.0-33.0); MEAN CORPUSCULAR HGB CONC 32.7 g/dl (32.0-36.5); MEAN CORPUSCULAR VOLUME 93.7 fl (80.0-96.0); MONO # 0.5 10^3/uL (0.0-0.8); MONO % 9.2 % (2.0-8.0); NEUTROPHILS # 3.1 10^3/uL (1.5-8.5); NEUTROPHILS % 64.2 % (36.0-66.0); PLATELET COUNT, AUTOMATED 187 10^3/uL (150-450); RED BLOOD COUNT 3.82 10^6/uL (4.00-5.40); WHITE BLOOD COUNT 4.9 10^3/uL (4.0-10.0)
[2021-09-27 12:08] LABS: ALBUMIN 3.4 GM/DL (3.2-5.2); BILIRUBIN,TOTAL 0.4 MG/DL (0.2-1.0); CALCIUM LEVEL 8.7 MG/DL (8.8-10.2); CREATININE FOR GFR 2.01 MG/DL (0.55-1.30); GLOMERULAR FILTRATION RATE 25.6 (>39); POTASSIUM SERUM 4.1 MEQ/L (3.5-5.1); TOTAL PROTEIN 6.9 GM/DL (6.4-8.2)
[2021-09-27 12:38] LABS: HEMOGLOBIN A1c 6.8 %
[2021-09-27 12:43] LABS: CREATININE, URINE 94.8 MG/DL
== END ==
LOC: M WUC 08:42
PROVIDERS: ATTEND Family Medicine
DX: E11.22 Type 2 diabetes mellitus with diabetic chronic kidney disease (principal); N18.9 Chronic kidney disease, unspecified

== ENCOUNTER → 2021-12-09 | Outpatient (CLI) | payer MEDICARE ==
[2021-12-09 10:59] LABS: BASO # 0.1 10^3/uL (0.0-0.2); BASO % 1.1 % (0.0-1.0); EOS # 0.2 10^3/uL (0.0-0.5); EOS % 4.4 % (0.0-3.0); HEMATOCRIT 35.9 % (36.0-47.0); HEMOGLOBIN 11.6 g/dl (12.0-15.5); LYMPH # 1.2 10^3/uL (1.5-5.0); LYMPH % 22.2 % (24.0-44.0); MEAN CORPUSCULAR HEMOGLOBIN 30.7 pg (27.0-33.0); MEAN CORPUSCULAR HGB CONC 32.3 g/dl (32.0-36.5); MONO # 0.5 10^3/uL (0.0-0.8); MONO % 9.4 % (2.0-8.0); NEUTROPHILS # 3.3 10^3/uL (1.5-8.5); NEUTROPHILS % 62.5 % (36.0-66.0); PLATELET COUNT, AUTOMATED 173 10^3/uL (150-450); RED BLOOD COUNT 3.78 10^6/uL (4.00-5.40); WHITE BLOOD COUNT 5.2 10^3/uL (4.0-10.0)
[2021-12-09 11:27] LABS: HEMOGLOBIN A1c 6.7 %
[2021-12-09 11:39] LABS: ALBUMIN 3.3 GM/DL (3.2-5.2); BILIRUBIN,TOTAL 0.4 MG/DL (0.2-1.0); CALCIUM LEVEL 8.9 MG/DL (8.8-10.2); CHOLESTEROL RISK RATIO 3.629 (<5); CREATININE FOR GFR 1.58 MG/DL (0.55-1.30); FREE T4 1.07 NG/DL (0.76-1.46); GLOMERULAR FILTRATION RATE 33.8 (>39); POTASSIUM SERUM 4.2 MEQ/L (3.5-5.1); THYROID STIMULATING HORMONE 1.91 uIU/ML (0.358-3.740); TOTAL PROTEIN 6.6 GM/DL (6.4-8.2)
== END ==
LOC: M WUC 09:05
PROVIDERS: ATTEND Family Medicine
DX: E11.22 Type 2 diabetes mellitus with diabetic chronic kidney disease (principal); E78.2 Mixed hyperlipidemia; E03.9 Hypothyroidism, unspecified

== ENCOUNTER → 2022-03-31 | Outpatient (CLI) | payer MEDICARE ==
[2022-03-31 10:10] LABS: HEMOGLOBIN A1c 5.4 % (4.0-6.0)
[2022-03-31 10:27] LABS: ALBUMIN 3.6 G/DL (3.2-5.2); BILIRUBIN,TOTAL 0.3 MG/DL (0.3-1.2); CALCIUM LEVEL 8.9 MG/DL (8.3-10.6); CHOLESTEROL RISK RATIO 3.53 (<5); CREATININE FOR GFR 1.55 MG/DL (0.55-1.30); GLOMERULAR FILTRATION RATE 34.4 (>39); HDL CHOLESTEROL 50.1 MG/DL (>40); LDL CHOLESTEROL 98.1 MG/DL (<100); POTASSIUM SERUM 3.9 MMOL/L (3.5-5.1); TOTAL PROTEIN 6.5 G/DL (5.7-8.2)
[2022-03-31 10:28] LABS: FREE T4 1.31 NG/DL (0.89-1.76)
[2022-03-31 10:29] LABS: THYROID STIMULATING HORMONE 2.716 uIU/ML (0.55-4.78)
== END ==
LOC: M WUC 08:39
PROVIDERS: ATTEND Family Medicine
DX: E11.22 Type 2 diabetes mellitus with diabetic chronic kidney disease (principal); E78.2 Mixed hyperlipidemia; E03.9 Hypothyroidism, unspecified; N18.9 Chronic kidney disease, unspecified

== ENCOUNTER 2022-05-28 19:02 | Inpatient (IN) | payer MEDICARE ==
[~2022-05-28] VITALS: Ht 147.3 cm; Wt 101.0 kg
[2022-05-28 22:56] LABS: BASO % 0.3 % (0.0-1.0); EOS % 0.3 % (0.0-3.0); HEMATOCRIT 40.6 % (36.0-47.0); HEMOGLOBIN 13.1 g/dl (12.0-15.5); LYMPH # 0.5 10^3/uL (1.5-5.0); LYMPH % 3.4 % (24.0-44.0); MEAN CORPUSCULAR HEMOGLOBIN 29.2 pg (27.0-33.0); MEAN CORPUSCULAR HGB CONC 32.3 g/dl (32.0-36.5); MEAN CORPUSCULAR VOLUME 90.6 fl (80.0-96.0); MONO % 6.7 % (2.0-8.0); NEUTROPHILS # 13.1 10^3/uL (1.5-8.5); NEUTROPHILS % 88.8 % (36.0-66.0); PLATELET COUNT, AUTOMATED 268 10^3/uL (150-450); RED BLOOD COUNT 4.48 10^6/uL (4.00-5.40); WHITE BLOOD COUNT 14.7 10^3/uL (4.0-10.0)
[2022-05-28 23:13] LABS: INR 0.95; PROTHROMBIN TIME 12.9 SECONDS (12.5-14.5)
[2022-05-28 23:16] LABS: LIPASE 32 U/L (12-53)
[2022-05-28 23:17] LABS: AMYLASE 57 U/L (30-118)
[2022-05-28 23:18] LABS: ALBUMIN 3.7 G/DL (3.2-5.2); ALKALINE PHOSPHATASE 97 U/L (46-116); ALT/SGPT 17 U/L (7.0-40); AST/SGOT 48 U/L (<34); BILIRUBIN,DIRECT 0.1 MG/DL (<0.4); BILIRUBIN,TOTAL 0.3 MG/DL (0.3-1.2); BLOOD UREA NITROGEN 51 MG/DL (9-23); CALCIUM LEVEL 9.3 MG/DL (8.3-10.6); CARBON DIOXIDE LEVEL 23 MMOL/L (20-31); CHLORIDE LEVEL 100 MMOL/L (98-107); CK-MB VALUE MASS < 1.0 NG/ML (<3.6); CREATININE FOR GFR 1.87 MG/DL (0.55-1.30); GLOMERULAR FILTRATION RATE 27.7 (>39); GLUCOSE, FASTING 151 MG/DL (74-106); POTASSIUM SERUM 4.6 MMOL/L (3.5-5.1); SODIUM LEVEL 139 MMOL/L (136-145); TOTAL PROTEIN 7.7 G/DL (5.7-8.2)
[2022-05-28 23:19] LABS: CPK CREATINE PHOSPHOKINASE 113 U/L (34-145); MB/CK RELATIVE INDEX 0.88 (< OR =4)
[2022-05-29] MEDS ORDERED: PIPERACILLIN/TAZOBACTAM SOD 3.375 GM in D5W MINI-BAG PLUS 50 ML IV ONE (01:15)
[2022-05-29] MEDS ORDERED: NS 1,000 ML IV SCH (01:15)
[2022-05-29] MEDS ORDERED: HYDR-3911 PO (01:56)
[2022-05-29] MEDS ORDERED: TOUJ1.2I INJ (01:57)
[2022-05-29] MEDS ORDERED: hydrALAZINE 20MG/ML 1ML VIAL IV ONE (02:00)
[2022-05-29] MEDS ORDERED: ROSU20TA5 PO (02:07)
[2022-05-29] MEDS ORDERED: CYCL-707 PO (02:07)
[2022-05-29] MEDS ORDERED: CLON0.5T2 PO (02:07)
[2022-05-29] MEDS ORDERED: FERR1TAB8 PO (02:07)
[2022-05-29] MEDS ORDERED: THERTAB52 PO (02:07)
[2022-05-29] MEDS ORDERED: D3 M1CAP2 PO (02:07)
[2022-05-29] MEDS ORDERED: POTA-151 PO (02:07)
[2022-05-29] MEDS ORDERED: FURO40TA2 PO (02:07)
[2022-05-29] MEDS ORDERED: ASPI81TA26 PO (02:07)
[2022-05-29] MEDS ORDERED: MELA10CA2 PO (02:07)
[2022-05-29] MEDS ORDERED: LEVA12INH INH (02:07)
[2022-05-29] MEDS ORDERED: HOME MED LIST COMPLETE! XX SCH (02:10)
[2022-05-29 02:31] LABS: CK-MB VALUE MASS < 1.0 NG/ML (<3.6)
[2022-05-29 02:34] LABS: CPK CREATINE PHOSPHOKINASE 144 U/L (34-145); MB/CK RELATIVE INDEX 0.69 (< OR =4)
[2022-05-29 02:40] LABS: RSV AMPLIFICATION NEGATIVE (NEGATIVE)
[2022-05-29] MEDS ORDERED: LEVALBUTEROL 1.25MG 0.5ML CONCENTRATE NEB INH PRN (03:00)
[2022-05-29] MEDS ORDERED: CYCLOBENZAPRINE 10MG TABLET PO PRN (03:00)
[2022-05-29 03:29] VITALS: BP 212/93
[2022-05-29] MEDS ORDERED: DEXTROSE 50% 50ML SYRINGE IV PRN (03:35)
[2022-05-29] MEDS ORDERED: GLUCAGON INJ 1MG VIAL SC PRN (03:35)
[2022-05-29] MEDS ORDERED: GLUCOSE 4GM CHEW TABLET PO PRN (03:35)
[2022-05-29] MEDS: NS 1,000 ML IV SCH ×2 (03:51→12:31)
[2022-05-29] MEDS: LEVOTHYROXINE 112MCG TABLET (0.112MG) PO SCH (05:49)
[2022-05-29] MEDS: HEPARIN SOD (PORCINE) 5000UNITS/ML 1ML VIAL/SYRINGE SC SCH ×3 (05:49→21:02)
[2022-05-29 06:27] LABS: HEMOGLOBIN 10.4 g/dl (12.0-15.5); MEAN CORPUSCULAR HEMOGLOBIN 29.1 pg (27.0-33.0); MEAN CORPUSCULAR HGB CONC 31.5 g/dl (32.0-36.5); MEAN CORPUSCULAR VOLUME 92.2 fl (80.0-96.0); PLATELET COUNT, AUTOMATED 215 10^3/uL (150-450); RED BLOOD COUNT 3.58 10^6/uL (4.00-5.40); WHITE BLOOD COUNT 10.7 10^3/uL (4.0-10.0)
[2022-05-29 06:36] VITALS: BP 160/67
[2022-05-29 06:58] LABS: ALBUMIN 2.9 G/DL (3.2-5.2); BILIRUBIN,TOTAL 0.3 MG/DL (0.3-1.2); CALCIUM LEVEL 8.3 MG/DL (8.3-10.6); CREATININE FOR GFR 1.89 MG/DL (0.55-1.30); GLOMERULAR FILTRATION RATE 27.4 (>39); MAGNESIUM LEVEL 2.1 MG/DL (1.8-2.4); POTASSIUM SERUM 3.5 MMOL/L (3.5-5.1); TOTAL PROTEIN 5.8 G/DL (5.7-8.2)
[2022-05-29] MEDS: LEVEMIR (INSULIN DETEMIR) 1 UNITS/0.01ML SC SCH (08:37)
[2022-05-29] MEDS: FLEET ENEMA PR SCH ×2 (08:37→18:00)
[2022-05-29] MEDS: ASPIRIN 81MG ENTERIC TABLET PO SCH (08:38)
[2022-05-29] MEDS: INSULIN LISPRO (NovoLOG) PER UNIT SC SCH ×4 (08:38→21:00)
[2022-05-29] MEDS: allopurinoL 100 MG TAB PO SCH (08:38)
[2022-05-29] MEDS: CARVedilol 12.5 MG TAB PO SCH ×2 (08:39→21:04)
[2022-05-29] MEDS: clonazePAM 0.5 MG TAB PO SCH ×2 (08:40→21:03)
[2022-05-29] MEDS: SERTRALINE HCL 25 MG TABLET PO SCH ×2 (08:40→21:05)
[2022-05-29] MEDS ORDERED: BISACODYL 10MG SUPP PR SCH (09:00)
[2022-05-29] MEDS ORDERED: FUROSEMIDE 40 MG TAB PO SCH (09:00)
[2022-05-29] MEDS ORDERED: **hydrALAZINE** 50 MG TAB PO SCH ×2 (09:00→16:00)
[2022-05-29] MEDS: BISACODYL 10MG SUPP PR SCH ×2 (12:31→21:07)
[2022-05-29 14:00] VITALS: BP 173/75
[2022-05-29] MEDS: **hydrALAZINE** 50 MG TAB PO SCH ×2 (14:37→21:04)
[2022-05-29] MEDS ORDERED: LACTULOSE 20GM/30ML SYRUP UDC PO ONE (17:00)
[2022-05-29] MEDS: ROSUVASTATIN 10 MG TAB (CRESTOR) PO SCH (21:05)
[2022-05-29] MEDS: RAMELTEON 8 MG TAB (ROZEREM) PO PRN (21:06)
[2022-05-29 22:00] VITALS: BP 161/82
[2022-05-30] MEDS: HEPARIN SOD (PORCINE) 5000UNITS/ML 1ML VIAL/SYRINGE SC SCH ×3 (05:34→22:47)
[2022-05-30] MEDS: LEVOTHYROXINE 112MCG TABLET (0.112MG) PO SCH (05:35)
[2022-05-30] MEDS: FLEET ENEMA PR SCH ×2 (05:35→18:44)
[2022-05-30] MEDS: **hydrALAZINE** 50 MG TAB PO SCH ×3 (05:35→22:47)
[2022-05-30 06:00] VITALS: BP 201/91
[2022-05-30] MEDS: INSULIN LISPRO (NovoLOG) PER UNIT SC SCH ×4 (07:30→20:55)
[2022-05-30] MEDS: LEVEMIR (INSULIN DETEMIR) 1 UNITS/0.01ML SC SCH ×2 (08:06→08:54)
[2022-05-30 08:18] LABS: BASO # 0.1 10^3/uL (0.0-0.2); BASO % 0.7 % (0.0-1.0); EOS # 0.2 10^3/uL (0.0-0.5); HEMATOCRIT 32.7 % (36.0-47.0); HEMOGLOBIN 10.3 g/dl (12.0-15.5); LYMPH % 13.7 % (24.0-44.0); MEAN CORPUSCULAR HEMOGLOBIN 29.2 pg (27.0-33.0); MEAN CORPUSCULAR HGB CONC 31.5 g/dl (32.0-36.5); MEAN CORPUSCULAR VOLUME 92.6 fl (80.0-96.0); MONO # 0.6 10^3/uL (0.0-0.8); MONO % 8.3 % (2.0-8.0); NEUTROPHILS # 5.6 10^3/uL (1.5-8.5); PLATELET COUNT, AUTOMATED 209 10^3/uL (150-450); RED BLOOD COUNT 3.53 10^6/uL (4.00-5.40); WHITE BLOOD COUNT 7.5 10^3/uL (4.0-10.0)
[2022-05-30 08:30] VITALS: BP 187/79
[2022-05-30 08:43] LABS: CALCIUM LEVEL 7.5 MG/DL (8.3-10.6); CREATININE FOR GFR 1.75 MG/DL (0.55-1.30); GLOMERULAR FILTRATION RATE 29.9 (>39); POTASSIUM SERUM 3.4 MMOL/L (3.5-5.1)
[2022-05-30] MEDS: ASPIRIN 81MG ENTERIC TABLET PO SCH (08:51)
[2022-05-30] MEDS: allopurinoL 100 MG TAB PO SCH (08:51)
[2022-05-30] MEDS: BISACODYL 10MG SUPP PR SCH ×2 (08:51→20:40)
[2022-05-30] MEDS: CARVedilol 12.5 MG TAB PO SCH ×2 (08:52→20:39)
[2022-05-30] MEDS: clonazePAM 0.5 MG TAB PO SCH ×2 (08:53→20:38)
[2022-05-30] MEDS: SERTRALINE HCL 25 MG TABLET PO SCH ×2 (08:56→20:39)
[2022-05-30] MEDS: ACETAMINOPHEN TAB 650MG DOSE (2X325MG) PO PRN (11:03)
[2022-05-30] MEDS ORDERED: GASTROGRAFIN SOLUTION 30ML As Ordered ONE (12:40)
[2022-05-30] MEDS: KCL 10MEQ/100ML SWI (KRUN) 10 MEQ in IV 1 EA IV SCH ×2 (14:00→15:36)
[2022-05-30 15:45] VITALS: BP 195/86
[2022-05-30] MEDS ORDERED: D5W/0.9% SODIUM CHLORIDE 1,000 ML IV SCH (16:05)
[2022-05-30] MEDS ORDERED: hydrALAZINE 20MG/ML 1ML VIAL IV SCH (16:10)
[2022-05-30 16:47] LABS: BASO % 0.5 % (0.0-1.0); EOS # 0.1 10^3/uL (0.0-0.5); EOS % 1.1 % (0.0-3.0); HEMATOCRIT 33.2 % (36.0-47.0); HEMOGLOBIN 10.6 g/dl (12.0-15.5); LYMPH # 0.5 10^3/uL (1.5-5.0); LYMPH % 7.2 % (24.0-44.0); MEAN CORPUSCULAR HEMOGLOBIN 29.4 pg (27.0-33.0); MEAN CORPUSCULAR HGB CONC 31.9 g/dl (32.0-36.5); MONO # 0.5 10^3/uL (0.0-0.8); MONO % 6.8 % (2.0-8.0); NEUTROPHILS # 6.3 10^3/uL (1.5-8.5); PLATELET COUNT, AUTOMATED 227 10^3/uL (150-450); RED BLOOD COUNT 3.61 10^6/uL (4.00-5.40); WHITE BLOOD COUNT 7.5 10^3/uL (4.0-10.0)
[2022-05-30 17:27] LABS: ALBUMIN 2.8 G/DL (3.2-5.2); BILIRUBIN,TOTAL 0.2 MG/DL (0.3-1.2); CALCIUM LEVEL 7.5 MG/DL (8.3-10.6); CREATININE FOR GFR 1.78 MG/DL (0.55-1.30); GLOMERULAR FILTRATION RATE 29.3 (>39); MAGNESIUM LEVEL 1.9 MG/DL (1.8-2.4); POTASSIUM SERUM 2.9 MMOL/L (3.5-5.1); TOTAL PROTEIN 6.1 G/DL (5.7-8.2)
[2022-05-30] MEDS ORDERED: KCL 20MEQ IN 100ML SWI (KRUN) 20 MEQ in IV 1 EA IV ONE ×2 (17:30)
[2022-05-30] MEDS ORDERED: KCL 10MEQ/100ML SWI (KRUN) 10 MEQ in IV 1 EA IV ONE (17:50)
[2022-05-30] MEDS ORDERED: POTASSIUM CHLORIDE 10% LIQ 20MEQ/15ML UDC PO ONE (18:00)
[2022-05-30] MEDS: hydrALAZINE 20MG/ML 1ML VIAL IV PRN (18:43)
[2022-05-30 20:32] VITALS: BP 166/70
[2022-05-30] MEDS: MIRALAX *UNIT DOSE* 17GM PACKET PO SCH (20:38)
[2022-05-30] MEDS: MOM 30ML SUSPENSION UDC PO SCH (20:38)
[2022-05-30] MEDS: DOCUSATE SODIUM 100MG CAPSULE PO SCH (20:39)
[2022-05-30] MEDS: ROSUVASTATIN 10 MG TAB (CRESTOR) PO SCH (20:40)
[2022-05-30 23:42] VITALS: BP 162/69
[2022-05-31] VITALS (8 sets, daily range): BP systolic 155–230; BP diastolic 60–100
[2022-05-31] MEDS: KCL 10MEQ/100ML SWI (KRUN) 10 MEQ in IV 1 EA IV SCH ×3 (01:47→04:16)
[2022-05-31] MEDS ORDERED: POTASSIUM CHLORIDE 10% LIQ 20MEQ/15ML UDC PO ONE (02:00)
[2022-05-31 05:20] LABS: HEMATOCRIT 31.1 % (36.0-47.0); HEMOGLOBIN 9.8 g/dl (12.0-15.5); MEAN CORPUSCULAR HEMOGLOBIN 29.1 pg (27.0-33.0); MEAN CORPUSCULAR HGB CONC 31.5 g/dl (32.0-36.5); MEAN CORPUSCULAR VOLUME 92.3 fl (80.0-96.0); PLATELET COUNT, AUTOMATED 212 10^3/uL (150-450); RED BLOOD COUNT 3.37 10^6/uL (4.00-5.40); WHITE BLOOD COUNT 7.1 10^3/uL (4.0-10.0)
[2022-05-31] MEDS: **hydrALAZINE** 50 MG TAB PO SCH ×3 (05:48→20:54)
[2022-05-31] MEDS: LEVOTHYROXINE 112MCG TABLET (0.112MG) PO SCH (05:48)
[2022-05-31] MEDS: FLEET ENEMA PR SCH ×2 (05:49→18:00)
[2022-05-31] MEDS: HEPARIN SOD (PORCINE) 5000UNITS/ML 1ML VIAL/SYRINGE SC SCH ×3 (05:49→20:55)
[2022-05-31 05:54] LABS: CALCIUM LEVEL 7.4 MG/DL (8.3-10.6); CREATININE FOR GFR 1.84 MG/DL (0.55-1.30); GLOMERULAR FILTRATION RATE 28.2 (>39); POTASSIUM SERUM 3.9 MMOL/L (3.5-5.1)
[2022-05-31] MEDS: MOM 30ML SUSPENSION UDC PO SCH ×3 (08:32→20:52)
[2022-05-31] MEDS: MIRALAX *UNIT DOSE* 17GM PACKET PO SCH ×2 (08:32→21:00)
[2022-05-31] MEDS: INSULIN LISPRO (NovoLOG) PER UNIT SC SCH ×4 (08:33→20:55)
[2022-05-31] MEDS: clonazePAM 0.5 MG TAB PO SCH ×2 (08:33→20:54)
[2022-05-31] MEDS: CARVedilol 12.5 MG TAB PO SCH ×2 (08:34→20:52)
[2022-05-31] MEDS: allopurinoL 100 MG TAB PO SCH (08:35)
[2022-05-31] MEDS: DOCUSATE SODIUM 100MG CAPSULE PO SCH ×2 (08:36→20:53)
[2022-05-31] MEDS: BISACODYL 10MG SUPP PR SCH ×2 (08:36→20:54)
[2022-05-31] MEDS: ASPIRIN 81MG ENTERIC TABLET PO SCH (08:36)
[2022-05-31] MEDS: SERTRALINE HCL 25 MG TABLET PO SCH ×2 (08:36→20:53)
[2022-05-31] MEDS ORDERED: MOM 30ML SUSPENSION UDC PO SCH (09:00)
[2022-05-31] MEDS: ACETAMINOPHEN TAB 650MG DOSE (2X325MG) PO PRN (10:30)
[2022-05-31] MEDS: LACTULOSE 20GM/30ML SYRUP UDC PO SCH ×3 (11:58→23:58)
[2022-05-31] MEDS: hydrALAZINE 20MG/ML 1ML VIAL IV PRN (16:39)
[2022-05-31] MEDS: ROSUVASTATIN 10 MG TAB (CRESTOR) PO SCH (20:52)
[2022-06-01 04:02] VITALS: BP 180/79
[2022-06-01] MEDS: hydrALAZINE 20MG/ML 1ML VIAL IV PRN (04:16)
[2022-06-01 05:21] LABS: HEMATOCRIT 32.5 % (36.0-47.0); HEMOGLOBIN 10.2 g/dl (12.0-15.5); MEAN CORPUSCULAR HEMOGLOBIN 28.7 pg (27.0-33.0); MEAN CORPUSCULAR HGB CONC 31.4 g/dl (32.0-36.5); MEAN CORPUSCULAR VOLUME 91.5 fl (80.0-96.0); PLATELET COUNT, AUTOMATED 221 10^3/uL (150-450); RED BLOOD COUNT 3.55 10^6/uL (4.00-5.40); WHITE BLOOD COUNT 6.6 10^3/uL (4.0-10.0)
[2022-06-01 05:36] LABS: CALCIUM LEVEL 8.1 MG/DL (8.3-10.6); CREATININE FOR GFR 2.01 MG/DL (0.55-1.30); GLOMERULAR FILTRATION RATE 25.5 (>39); POTASSIUM SERUM 3.2 MMOL/L (3.5-5.1)
[2022-06-01] MEDS: HEPARIN SOD (PORCINE) 5000UNITS/ML 1ML VIAL/SYRINGE SC SCH ×3 (06:00→21:27)
[2022-06-01] MEDS: FLEET ENEMA PR SCH ×2 (06:00→18:00)
[2022-06-01 06:04] VITALS: BP 167/77
[2022-06-01] MEDS: LACTULOSE 20GM/30ML SYRUP UDC PO SCH ×3 (06:14→18:00)
[2022-06-01] MEDS: **hydrALAZINE** 50 MG TAB PO SCH ×3 (06:14→21:28)
[2022-06-01] MEDS: LEVOTHYROXINE 112MCG TABLET (0.112MG) PO SCH (06:14)
[2022-06-01] MEDS ORDERED: POTASSIUM CHLORIDE 10MEQ SR TABLET PO ONE (07:00)
[2022-06-01 08:00] VITALS: BP 172/72
[2022-06-01] MEDS ORDERED: FLEET ENEMA PR ONE (08:00)
[2022-06-01] MEDS: BISACODYL 10MG SUPP PR SCH ×2 (09:00→21:00)
[2022-06-01] MEDS: MOM 30ML SUSPENSION UDC PO SCH ×2 (09:23→21:00)
[2022-06-01] MEDS: INSULIN LISPRO (NovoLOG) PER UNIT SC SCH ×4 (09:23→21:27)
[2022-06-01] MEDS: NS 1,000 ML IV SCH ×2 (09:23→18:37)
[2022-06-01] MEDS: MIRALAX *UNIT DOSE* 17GM PACKET PO SCH ×2 (09:24→21:00)
[2022-06-01] MEDS: ASPIRIN 81MG ENTERIC TABLET PO SCH (09:24)
[2022-06-01] MEDS: DOCUSATE SODIUM 100MG CAPSULE PO SCH ×2 (09:24→21:00)
[2022-06-01] MEDS: CARVedilol 12.5 MG TAB PO SCH ×2 (09:25→21:28)
[2022-06-01] MEDS: clonazePAM 0.5 MG TAB PO SCH ×2 (09:25→21:29)
[2022-06-01] MEDS: SERTRALINE HCL 25 MG TABLET PO SCH ×2 (09:25→21:28)
[2022-06-01] MEDS: allopurinoL 100 MG TAB PO SCH (09:31)
[2022-06-01] MEDS ORDERED: propofoL 200 MG/20 ML VIAL As Ordered ONE ×3 (11:50→12:04)
[2022-06-01] MEDS ORDERED: LIDOCAINE 2% 100MG/5ML SDV (FOR ANES.) As Ordered ONE (11:51)
[2022-06-01 14:16] VITALS: BP 176/73
[2022-06-01 16:00] VITALS: BP 159/72
[2022-06-01 19:50] VITALS: BP 160/69
[2022-06-01] MEDS: ROSUVASTATIN 10 MG TAB (CRESTOR) PO SCH (21:29)
[2022-06-02] VITALS: BP 147/92
[2022-06-02 04:00] VITALS: BP 157/71
[2022-06-02] MEDS: FLEET ENEMA PR SCH (05:29)
[2022-06-02 05:48] LABS: CALCIUM LEVEL 7.9 MG/DL (8.3-10.6); CREATININE FOR GFR 2.07 MG/DL (0.55-1.30); GLOMERULAR FILTRATION RATE 24.7 (>39); POTASSIUM SERUM 3.2 MMOL/L (3.5-5.1)
[2022-06-02] MEDS: **hydrALAZINE** 50 MG TAB PO SCH ×3 (06:24→20:38)
[2022-06-02] MEDS: LACTULOSE 20GM/30ML SYRUP UDC PO SCH ×5 (06:24→23:56)
[2022-06-02] MEDS: HEPARIN SOD (PORCINE) 5000UNITS/ML 1ML VIAL/SYRINGE SC SCH ×3 (06:24→22:58)
[2022-06-02] MEDS: NS 1,000 ML IV SCH ×2 (06:26→18:30)
[2022-06-02] MEDS: LEVOTHYROXINE 112MCG TABLET (0.112MG) PO SCH (06:26)
[2022-06-02 06:57] LABS: APPEARANCE, URINE MANUAL CLEAR (CLEAR); COLOR, URINE MANUAL YELLOW (YELLOW)
[2022-06-02 06:59] LABS: BILIRUBIN, URINE MANUAL NEGATIVE (NEGATIVE); BLOOD URINE MANUAL NEGATIVE (NEGATIVE); GLUCOSE, URINE (UA) MANUAL 2+(250 MG/DL) mg/dL (NEGATIVE); KETONE, URINE MANUAL NEGATIVE (NEGATIVE); LEUKOCYTE ESTERASE, URINE MAN NEGATIVE (NEGATIVE); NITRITE, URINE MANUAL NEGATIVE (NEGATIVE); PROTEIN, URINE MANUAL 3+ mg/dL (NEGATIVE); SPECIFIC GRAVITY,URINE MANUAL 1.025 (1.002-1.035); UROBILINOGEN, URINE MANUAL NORMAL (NORMAL)
[2022-06-02 07:08] LABS: SQUAMOUS EPITHELIAL CELL URINE MOD AMOUNT /hpf (SMALL AMT)
[2022-06-02 07:09] LABS: BACTERIA, URINE SMALL AMOUNT; MUCUS, URINE SMALL AMOUNT (NEGATIVE)
[2022-06-02 07:10] LABS: AMORPHOUS SEDIMENT, URINE SMALL AMOUNT (NEGATIVE)
[2022-06-02 07:47] LABS: HEMATOCRIT 30.6 % (36.0-47.0); HEMOGLOBIN 9.7 g/dl (12.0-15.5); MEAN CORPUSCULAR HEMOGLOBIN 29.5 pg (27.0-33.0); MEAN CORPUSCULAR HGB CONC 31.7 g/dl (32.0-36.5); PLATELET COUNT, AUTOMATED 219 10^3/uL (150-450); RED BLOOD COUNT 3.29 10^6/uL (4.00-5.40); WHITE BLOOD COUNT 6.1 10^3/uL (4.0-10.0)
[2022-06-02 08:30] VITALS: BP 154/62
[2022-06-02] MEDS: clonazePAM 0.5 MG TAB PO SCH ×2 (10:10→20:38)
[2022-06-02] MEDS: SERTRALINE HCL 25 MG TABLET PO SCH ×2 (10:10→20:39)
[2022-06-02] MEDS: ASPIRIN 81MG ENTERIC TABLET PO SCH (10:10)
[2022-06-02] MEDS: DOCUSATE SODIUM 100MG CAPSULE PO SCH ×2 (10:11→20:38)
[2022-06-02] MEDS: CARVedilol 12.5 MG TAB PO SCH ×2 (10:11→20:42)
[2022-06-02] MEDS: POTASSIUM CHLORIDE 10MEQ SR TABLET PO SCH (10:12)
[2022-06-02] MEDS: MIRALAX *UNIT DOSE* 17GM PACKET PO SCH ×2 (10:12→20:43)
[2022-06-02] MEDS: allopurinoL 100 MG TAB PO SCH (10:12)
[2022-06-02] MEDS: INSULIN LISPRO (NovoLOG) PER UNIT SC SCH ×4 (10:12→20:37)
[2022-06-02] MEDS: MOM 30ML SUSPENSION UDC PO SCH (10:13)
[2022-06-02] MEDS: BISACODYL 10MG SUPP PR SCH (10:14)
[2022-06-02] MEDS ORDERED: LIDOCAINE 5% (LIDODERM) PATCH TD ONE (12:15)
[2022-06-02 12:16] VITALS: BP 143/63
[2022-06-02 15:51] VITALS: BP 147/69
[2022-06-02] MEDS: SIMETHICONE 80MG CHEW TAB PO PRN (18:19)
[2022-06-02 20:00] VITALS: BP 164/62
[2022-06-02] MEDS: ROSUVASTATIN 10 MG TAB (CRESTOR) PO SCH (20:43)
[2022-06-03] VITALS (9 sets, daily range): BP systolic 132–208; BP diastolic 63–80
[2022-06-03 04:38] LABS: HEMATOCRIT 29.2 % (36.0-47.0); MEAN CORPUSCULAR HEMOGLOBIN 28.5 pg (27.0-33.0); MEAN CORPUSCULAR HGB CONC 30.8 g/dl (32.0-36.5); MEAN CORPUSCULAR VOLUME 92.4 fl (80.0-96.0); PLATELET COUNT, AUTOMATED 215 10^3/uL (150-450); RED BLOOD COUNT 3.16 10^6/uL (4.00-5.40); WHITE BLOOD COUNT 7.3 10^3/uL (4.0-10.0)
[2022-06-03 04:57] LABS: CREATININE FOR GFR 2.36 MG/DL (0.55-1.30); GLOMERULAR FILTRATION RATE 21.2 (>39); POTASSIUM SERUM 3.9 MMOL/L (3.5-5.1)
[2022-06-03] MEDS ORDERED: hydrALAZINE 20MG/ML 1ML VIAL IV ONE ×2 (05:00→07:00)
[2022-06-03] MEDS: LACTULOSE 20GM/30ML SYRUP UDC PO SCH ×4 (06:00→23:03)
[2022-06-03] MEDS: HEPARIN SOD (PORCINE) 5000UNITS/ML 1ML VIAL/SYRINGE SC SCH ×3 (06:45→21:43)
[2022-06-03] MEDS: NS 1,000 ML IV SCH (06:45)
[2022-06-03] MEDS: LEVOTHYROXINE 112MCG TABLET (0.112MG) PO SCH (06:45)
[2022-06-03] MEDS: SIMETHICONE 80MG CHEW TAB PO PRN (09:36)
[2022-06-03] MEDS: SERTRALINE HCL 25 MG TABLET PO SCH ×2 (09:37→20:17)
[2022-06-03] MEDS: clonazePAM 0.5 MG TAB PO SCH ×2 (09:37→20:15)
[2022-06-03] MEDS: ASPIRIN 81MG ENTERIC TABLET PO SCH (09:37)
[2022-06-03] MEDS: **hydrALAZINE** 50 MG TAB PO SCH ×3 (09:37→20:15)
[2022-06-03] MEDS: DOCUSATE SODIUM 100MG CAPSULE PO SCH ×2 (09:37→20:17)
[2022-06-03] MEDS: POTASSIUM CHLORIDE 10MEQ SR TABLET PO SCH (09:38)
[2022-06-03] MEDS: MIRALAX *UNIT DOSE* 17GM PACKET PO SCH ×2 (09:38→20:22)
[2022-06-03] MEDS: allopurinoL 100 MG TAB PO SCH (09:38)
[2022-06-03] MEDS: CARVedilol 12.5 MG TAB PO SCH ×2 (09:38→20:16)
[2022-06-03] MEDS: LEVEMIR (INSULIN DETEMIR) 1 UNITS/0.01ML SC SCH (09:39)
[2022-06-03] MEDS: LIDOCAINE 5% (LIDODERM) PATCH TD SCH (09:39)
[2022-06-03] MEDS: INSULIN LISPRO (NovoLOG) PER UNIT SC SCH ×4 (09:39→20:00)
[2022-06-03] MEDS ORDERED: FUROSEMIDE 100MG/10ML VIAL IV ONE (14:05)
[2022-06-03 17:48] LABS: ABG BASE EXCESS -3.6 (-2.0-2.0); ABG HCO3 20.2 MEQ/L (22.0-26.0); ABG PARTIAL PRESSURE CO2 32.1 mmHg (35.0-45.0); ABG PARTIAL PRESSURE O2 85.8 mmHg (75.0-100.0); ABG STANDARD HCO3 21.5 MEQ/L (22.0-26.0); ABG TOTAL CO2 21.2 MEQ/L (23.0-31.0); ABG pH (ARTERIAL) 7.417 UNITS (7.350-7.450)
[2022-06-03] MEDS: ROSUVASTATIN 10 MG TAB (CRESTOR) PO SCH (20:15)
[2022-06-03] MEDS: ACETAMINOPHEN TAB 650MG DOSE (2X325MG) PO PRN (22:15)
[2022-06-03] MEDS: FUROSEMIDE 40MG/4ML VIAL IV SCH (23:13)
[2022-06-04 03:49] VITALS: BP 158/69
[2022-06-04 05:02] LABS: BASO % 0.6 % (0.0-1.0); EOS # 0.2 10^3/uL (0.0-0.5); EOS % 2.4 % (0.0-3.0); HEMATOCRIT 29.4 % (36.0-47.0); HEMOGLOBIN 9.2 g/dl (12.0-15.5); LYMPH # 0.9 10^3/uL (1.5-5.0); LYMPH % 14.8 % (24.0-44.0); MEAN CORPUSCULAR HEMOGLOBIN 28.8 pg (27.0-33.0); MEAN CORPUSCULAR HGB CONC 31.3 g/dl (32.0-36.5); MEAN CORPUSCULAR VOLUME 91.9 fl (80.0-96.0); MONO # 0.5 10^3/uL (0.0-0.8); MONO % 7.6 % (2.0-8.0); NEUTROPHILS # 4.7 10^3/uL (1.5-8.5); NEUTROPHILS % 73.7 % (36.0-66.0); PLATELET COUNT, AUTOMATED 226 10^3/uL (150-450); WHITE BLOOD COUNT 6.3 10^3/uL (4.0-10.0)
[2022-06-04 05:22] LABS: ALBUMIN 2.8 G/DL (3.2-5.2); BILIRUBIN,TOTAL 0.2 MG/DL (0.3-1.2); CALCIUM LEVEL 8.5 MG/DL (8.3-10.6); CREATININE FOR GFR 2.45 MG/DL (0.55-1.30); GLOMERULAR FILTRATION RATE 20.3 (>39); MAGNESIUM LEVEL 2.8 MG/DL (1.8-2.4); POTASSIUM SERUM 4.1 MMOL/L (3.5-5.1); TOTAL PROTEIN 5.7 G/DL (5.7-8.2)
[2022-06-04] MEDS: LACTULOSE 20GM/30ML SYRUP UDC PO SCH ×3 (06:00→17:36)
[2022-06-04] MEDS: FUROSEMIDE 40MG/4ML VIAL IV SCH ×3 (06:05→22:07)
[2022-06-04] MEDS: HEPARIN SOD (PORCINE) 5000UNITS/ML 1ML VIAL/SYRINGE SC SCH ×3 (06:05→22:07)
[2022-06-04] MEDS: LEVOTHYROXINE 112MCG TABLET (0.112MG) PO SCH (06:05)
[2022-06-04 08:05] VITALS: BP 172/74
[2022-06-04] MEDS: SERTRALINE HCL 25 MG TABLET PO SCH ×2 (08:49→20:46)
[2022-06-04] MEDS: LIDOCAINE 5% (LIDODERM) PATCH TD SCH (08:49)
[2022-06-04] MEDS: DOCUSATE SODIUM 100MG CAPSULE PO SCH ×2 (08:49→20:46)
[2022-06-04] MEDS: allopurinoL 100 MG TAB PO SCH (08:50)
[2022-06-04] MEDS: ASPIRIN 81MG ENTERIC TABLET PO SCH (08:50)
[2022-06-04] MEDS: CARVedilol 12.5 MG TAB PO SCH ×2 (08:50→20:45)
[2022-06-04] MEDS: clonazePAM 0.5 MG TAB PO SCH ×2 (08:50→20:46)
[2022-06-04] MEDS: **hydrALAZINE** 50 MG TAB PO SCH ×3 (08:50→20:45)
[2022-06-04] MEDS: LEVEMIR (INSULIN DETEMIR) 1 UNITS/0.01ML SC SCH (08:51)
[2022-06-04] MEDS: POTASSIUM CHLORIDE 10MEQ SR TABLET PO SCH (08:51)
[2022-06-04] MEDS: INSULIN LISPRO (NovoLOG) PER UNIT SC SCH ×4 (08:57→20:50)
[2022-06-04] MEDS: MIRALAX *UNIT DOSE* 17GM PACKET PO SCH ×2 (08:58→20:49)
[2022-06-04 12:00] VITALS: BP 144/66
[2022-06-04 16:35] VITALS: BP 142/60
[2022-06-04] MEDS: ACETAMINOPHEN TAB 650MG DOSE (2X325MG) PO PRN (17:35)
[2022-06-04 20:06] VITALS: BP 142/68
[2022-06-04] MEDS: ROSUVASTATIN 10 MG TAB (CRESTOR) PO SCH (20:44)
[2022-06-05 00:19] VITALS: BP 160/67
[2022-06-05 04:11] VITALS: BP 152/69
[2022-06-05 05:05] LABS: BASO % 0.6 % (0.0-1.0); EOS # 0.2 10^3/uL (0.0-0.5); EOS % 2.8 % (0.0-3.0); HEMATOCRIT 28.1 % (36.0-47.0); HEMOGLOBIN 8.8 g/dl (12.0-15.5); LYMPH # 0.9 10^3/uL (1.5-5.0); LYMPH % 13.6 % (24.0-44.0); MEAN CORPUSCULAR HEMOGLOBIN 29.2 pg (27.0-33.0); MEAN CORPUSCULAR HGB CONC 31.3 g/dl (32.0-36.5); MEAN CORPUSCULAR VOLUME 93.4 fl (80.0-96.0); MONO # 0.6 10^3/uL (0.0-0.8); MONO % 8.5 % (2.0-8.0); NEUTROPHILS % 73.5 % (36.0-66.0); PLATELET COUNT, AUTOMATED 212 10^3/uL (150-450); RED BLOOD COUNT 3.01 10^6/uL (4.00-5.40); WHITE BLOOD COUNT 6.8 10^3/uL (4.0-10.0)
[2022-06-05] MEDS: LEVOTHYROXINE 112MCG TABLET (0.112MG) PO SCH (05:31)
[2022-06-05] MEDS: LACTULOSE 20GM/30ML SYRUP UDC PO SCH ×4 (05:32→17:26)
[2022-06-05] MEDS: HEPARIN SOD (PORCINE) 5000UNITS/ML 1ML VIAL/SYRINGE SC SCH ×3 (05:33→20:55)
[2022-06-05 05:43] LABS: ALBUMIN 2.6 G/DL (3.2-5.2); BILIRUBIN,TOTAL 0.3 MG/DL (0.3-1.2); CALCIUM LEVEL 8.1 MG/DL (8.3-10.6); CREATININE FOR GFR 2.13 MG/DL (0.55-1.30); GLOMERULAR FILTRATION RATE 23.9 (>39); MAGNESIUM LEVEL 2.4 MG/DL (1.8-2.4); POTASSIUM SERUM 3.9 MMOL/L (3.5-5.1); TOTAL PROTEIN 5.4 G/DL (5.7-8.2)
[2022-06-05] MEDS: FUROSEMIDE 40MG/4ML VIAL IV SCH (06:15)
[2022-06-05] MEDS: INSULIN LISPRO (NovoLOG) PER UNIT SC SCH ×4 (07:30→20:51)
[2022-06-05 08:00] VITALS: BP 136/64
[2022-06-05] MEDS: LIDOCAINE 5% (LIDODERM) PATCH TD SCH (08:37)
[2022-06-05] MEDS: LEVEMIR (INSULIN DETEMIR) 1 UNITS/0.01ML SC SCH (08:38)
[2022-06-05] MEDS: SERTRALINE HCL 25 MG TABLET PO SCH ×2 (08:39→20:54)
[2022-06-05] MEDS: CARVedilol 12.5 MG TAB PO SCH ×2 (08:39→20:54)
[2022-06-05] MEDS: allopurinoL 100 MG TAB PO SCH (08:39)
[2022-06-05] MEDS: clonazePAM 0.5 MG TAB PO SCH ×2 (08:40→20:55)
[2022-06-05] MEDS: **hydrALAZINE** 50 MG TAB PO SCH ×3 (08:40→20:54)
[2022-06-05] MEDS: DOCUSATE SODIUM 100MG CAPSULE PO SCH ×2 (08:40→20:57)
[2022-06-05] MEDS: ASPIRIN 81MG ENTERIC TABLET PO SCH (08:40)
[2022-06-05] MEDS: MIRALAX *UNIT DOSE* 17GM PACKET PO SCH ×2 (08:41→20:57)
[2022-06-05] MEDS: POTASSIUM CHLORIDE 10MEQ SR TABLET PO SCH (08:41)
[2022-06-05 12:35] VITALS: BP 156/68
[2022-06-05] MEDS: ACETAMINOPHEN TAB 650MG DOSE (2X325MG) PO PRN ×2 (13:46→17:25)
[2022-06-05 16:00] VITALS: BP 140/58
[2022-06-05] MEDS: FUROSEMIDE 80 MG TAB PO SCH (17:26)
[2022-06-05 19:32] VITALS: BP 142/64
[2022-06-05] MEDS: ROSUVASTATIN 10 MG TAB (CRESTOR) PO SCH (20:53)
[2022-06-06 04:37] VITALS: BP 178/72
[2022-06-06] MEDS ORDERED: **hydrALAZINE HCL** 25 MG TAB PO ONE (05:05)
[2022-06-06] MEDS: LEVOTHYROXINE 112MCG TABLET (0.112MG) PO SCH (05:23)
[2022-06-06] MEDS: LACTULOSE 20GM/30ML SYRUP UDC PO SCH ×5 (05:24→23:17)
[2022-06-06] MEDS: HEPARIN SOD (PORCINE) 5000UNITS/ML 1ML VIAL/SYRINGE SC SCH ×3 (05:24→21:48)
[2022-06-06 06:06] LABS: BASO % 0.5 % (0.0-1.0); EOS # 0.2 10^3/uL (0.0-0.5); HEMATOCRIT 28.7 % (36.0-47.0); HEMOGLOBIN 9.1 g/dl (12.0-15.5); LYMPH # 0.6 10^3/uL (1.5-5.0); LYMPH % 7.3 % (24.0-44.0); MEAN CORPUSCULAR HEMOGLOBIN 29.4 pg (27.0-33.0); MEAN CORPUSCULAR HGB CONC 31.7 g/dl (32.0-36.5); MEAN CORPUSCULAR VOLUME 92.9 fl (80.0-96.0); MONO # 0.6 10^3/uL (0.0-0.8); MONO % 7.7 % (2.0-8.0); NEUTROPHILS # 6.2 10^3/uL (1.5-8.5); NEUTROPHILS % 81.2 % (36.0-66.0); PLATELET COUNT, AUTOMATED 224 10^3/uL (150-450); RED BLOOD COUNT 3.09 10^6/uL (4.00-5.40); WHITE BLOOD COUNT 7.6 10^3/uL (4.0-10.0)
[2022-06-06 06:49] LABS: ALBUMIN 2.7 G/DL (3.2-5.2); BILIRUBIN,TOTAL 0.3 MG/DL (0.3-1.2); CALCIUM LEVEL 8.6 MG/DL (8.3-10.6); CREATININE FOR GFR 2.24 MG/DL (0.55-1.30); GLOMERULAR FILTRATION RATE 22.5 (>39); MAGNESIUM LEVEL 2.1 MG/DL (1.8-2.4); TOTAL PROTEIN 5.8 G/DL (5.7-8.2)
[2022-06-06 07:55] VITALS: BP 180/82
[2022-06-06] MEDS: LEVEMIR (INSULIN DETEMIR) 1 UNITS/0.01ML SC SCH (08:59)
[2022-06-06] MEDS: SERTRALINE HCL 25 MG TABLET PO SCH ×2 (08:59→20:41)
[2022-06-06] MEDS: POTASSIUM CHLORIDE 10MEQ SR TABLET PO SCH (09:00)
[2022-06-06] MEDS: DOCUSATE SODIUM 100MG CAPSULE PO SCH (09:00)
[2022-06-06] MEDS: MIRALAX *UNIT DOSE* 17GM PACKET PO SCH (09:00)
[2022-06-06] MEDS: **hydrALAZINE** 50 MG TAB PO SCH ×3 (09:01→20:43)
[2022-06-06] MEDS: ASPIRIN 81MG ENTERIC TABLET PO SCH (09:01)
[2022-06-06] MEDS: clonazePAM 0.5 MG TAB PO SCH ×2 (09:01→20:41)
[2022-06-06] MEDS: FUROSEMIDE 80 MG TAB PO SCH (09:01)
[2022-06-06] MEDS: CARVedilol 12.5 MG TAB PO SCH ×2 (09:02→20:42)
[2022-06-06] MEDS: allopurinoL 100 MG TAB PO SCH (09:02)
[2022-06-06] MEDS: INSULIN LISPRO (NovoLOG) PER UNIT SC SCH ×4 (09:03→20:44)
[2022-06-06] MEDS: LIDOCAINE 5% (LIDODERM) PATCH TD SCH (09:04)
[2022-06-06] MEDS ORDERED: MIRALAX *UNIT DOSE* 17GM PACKET PO PRN (10:55)
[2022-06-06] MEDS ORDERED: DOCUSATE SODIUM 100MG CAPSULE PO PRN (10:55)
[2022-06-06 12:06] VITALS: BP 132/64
[2022-06-06 17:14] VITALS: BP 150/84
[2022-06-06 20:00] VITALS: BP 180/64
[2022-06-06] MEDS: ROSUVASTATIN 10 MG TAB (CRESTOR) PO SCH (20:43)
[2022-06-07] VITALS (8 sets, daily range): BP systolic 159–172; BP diastolic 68–78
[2022-06-07 05:25] LABS: BASO % 0.6 % (0.0-1.0); EOS # 0.1 10^3/uL (0.0-0.5); EOS % 2.7 % (0.0-3.0); HEMATOCRIT 26.7 % (36.0-47.0); HEMOGLOBIN 8.5 g/dl (12.0-15.5); LYMPH # 0.6 10^3/uL (1.5-5.0); LYMPH % 11.1 % (24.0-44.0); MEAN CORPUSCULAR HEMOGLOBIN 29.2 pg (27.0-33.0); MEAN CORPUSCULAR HGB CONC 31.8 g/dl (32.0-36.5); MEAN CORPUSCULAR VOLUME 91.8 fl (80.0-96.0); MONO # 0.5 10^3/uL (0.0-0.8); MONO % 8.6 % (2.0-8.0); NEUTROPHILS # 3.9 10^3/uL (1.5-8.5); NEUTROPHILS % 75.1 % (36.0-66.0); PLATELET COUNT, AUTOMATED 212 10^3/uL (150-450); RED BLOOD COUNT 2.91 10^6/uL (4.00-5.40); WHITE BLOOD COUNT 5.2 10^3/uL (4.0-10.0)
[2022-06-07 05:45] LABS: ALBUMIN 2.5 G/DL (3.2-5.2); BILIRUBIN,TOTAL 0.3 MG/DL (0.3-1.2); CALCIUM LEVEL 8.1 MG/DL (8.3-10.6); CREATININE FOR GFR 1.89 MG/DL (0.55-1.30); GLOMERULAR FILTRATION RATE 27.4 (>39); MAGNESIUM LEVEL 1.9 MG/DL (1.8-2.4); POTASSIUM SERUM 3.7 MMOL/L (3.5-5.1); TOTAL PROTEIN 5.3 G/DL (5.7-8.2)
[2022-06-07] MEDS: LACTULOSE 20GM/30ML SYRUP UDC PO SCH ×4 (06:00→23:29)
[2022-06-07] MEDS: LEVOTHYROXINE 112MCG TABLET (0.112MG) PO SCH (06:00)
[2022-06-07] MEDS: HEPARIN SOD (PORCINE) 5000UNITS/ML 1ML VIAL/SYRINGE SC SCH ×3 (06:04→21:08)
[2022-06-07] MEDS: ASPIRIN 81MG ENTERIC TABLET PO SCH (09:00)
[2022-06-07] MEDS: INSULIN LISPRO (NovoLOG) PER UNIT SC SCH ×4 (09:56→21:00)
[2022-06-07] MEDS: LEVEMIR (INSULIN DETEMIR) 1 UNITS/0.01ML SC SCH (09:57)
[2022-06-07] MEDS: CARVedilol 12.5 MG TAB PO SCH ×2 (09:58→21:04)
[2022-06-07] MEDS: POTASSIUM CHLORIDE 10MEQ SR TABLET PO SCH (09:59)
[2022-06-07] MEDS: **hydrALAZINE** 50 MG TAB PO SCH ×3 (09:59→21:05)
[2022-06-07] MEDS: allopurinoL 100 MG TAB PO SCH (10:00)
[2022-06-07] MEDS: clonazePAM 0.5 MG TAB PO SCH ×2 (10:02→21:04)
[2022-06-07] MEDS: SERTRALINE HCL 25 MG TABLET PO SCH ×2 (10:02→21:05)
[2022-06-07] MEDS: LIDOCAINE 5% (LIDODERM) PATCH TD SCH (10:07)
[2022-06-07] MEDS ORDERED: FUROSEMIDE 20 MG TAB PO ONE (11:30)
[2022-06-07] MEDS ORDERED: FERRIC CARBOXYMALTOSE INJ 750 MG, VIAL MATE ADAPTER 1 EACH in NS 250 ML IV ONE (12:00)
[2022-06-07] MEDS: ACETAMINOPHEN TAB 650MG DOSE (2X325MG) PO PRN (14:18)
[2022-06-07] MEDS ORDERED: FUROSEMIDE 20 MG TAB PO SCH (17:00)
[2022-06-07] MEDS: ROSUVASTATIN 10 MG TAB (CRESTOR) PO SCH (21:03)
[2022-06-07] MEDS: RAMELTEON 8 MG TAB (ROZEREM) PO PRN (23:29)
[2022-06-08 04:00] VITALS: BP 168/60
[2022-06-08] MEDS: LACTULOSE 20GM/30ML SYRUP UDC PO SCH ×4 (06:00→23:11)
[2022-06-08] MEDS: HEPARIN SOD (PORCINE) 5000UNITS/ML 1ML VIAL/SYRINGE SC SCH ×3 (06:13→21:18)
[2022-06-08] MEDS: LEVOTHYROXINE 112MCG TABLET (0.112MG) PO SCH (06:13)
[2022-06-08 08:00] VITALS: BP 148/58
[2022-06-08 08:42] LABS: BASO % 0.6 % (0.0-1.0); EOS # 0.2 10^3/uL (0.0-0.5); EOS % 3.5 % (0.0-3.0); HEMATOCRIT 27.4 % (36.0-47.0); HEMOGLOBIN 8.8 g/dl (12.0-15.5); LYMPH # 0.7 10^3/uL (1.5-5.0); LYMPH % 14.5 % (24.0-44.0); MEAN CORPUSCULAR HEMOGLOBIN 29.7 pg (27.0-33.0); MEAN CORPUSCULAR HGB CONC 32.1 g/dl (32.0-36.5); MEAN CORPUSCULAR VOLUME 92.6 fl (80.0-96.0); MONO # 0.5 10^3/uL (0.0-0.8); MONO % 10.8 % (2.0-8.0); NEUTROPHILS # 3.2 10^3/uL (1.5-8.5); NEUTROPHILS % 68.2 % (36.0-66.0); PLATELET COUNT, AUTOMATED 213 10^3/uL (150-450); RED BLOOD COUNT 2.96 10^6/uL (4.00-5.40); WHITE BLOOD COUNT 4.6 10^3/uL (4.0-10.0)
[2022-06-08 09:14] LABS: ALBUMIN 2.5 G/DL (3.2-5.2); BILIRUBIN,TOTAL 0.3 MG/DL (0.3-1.2); CALCIUM LEVEL 8.2 MG/DL (8.3-10.6); CREATININE FOR GFR 1.64 MG/DL (0.55-1.30); GLOMERULAR FILTRATION RATE 32.3 (>39); MAGNESIUM LEVEL 1.7 MG/DL (1.8-2.4); TOTAL PROTEIN 5.5 G/DL (5.7-8.2)
[2022-06-08] MEDS: INSULIN LISPRO (NovoLOG) PER UNIT SC SCH ×4 (09:29→20:47)
[2022-06-08] MEDS: LEVEMIR (INSULIN DETEMIR) 1 UNITS/0.01ML SC SCH (09:30)
[2022-06-08] MEDS: LIDOCAINE 5% (LIDODERM) PATCH TD SCH (09:31)
[2022-06-08] MEDS: FUROSEMIDE 20 MG TAB PO SCH ×2 (09:32→17:05)
[2022-06-08] MEDS: CARVedilol 12.5 MG TAB PO SCH ×2 (09:33→20:39)
[2022-06-08] MEDS: POTASSIUM CHLORIDE 10MEQ SR TABLET PO SCH (09:35)
[2022-06-08] MEDS: SERTRALINE HCL 25 MG TABLET PO SCH ×2 (09:37→20:40)
[2022-06-08] MEDS: clonazePAM 0.5 MG TAB PO SCH ×2 (09:38→20:40)
[2022-06-08] MEDS: **hydrALAZINE** 50 MG TAB PO SCH ×3 (09:39→20:39)
[2022-06-08] MEDS: allopurinoL 100 MG TAB PO SCH (09:40)
[2022-06-08] MEDS: ASPIRIN 81MG ENTERIC TABLET PO SCH (09:40)
[2022-06-08] MEDS: ACETAMINOPHEN TAB 650MG DOSE (2X325MG) PO PRN ×2 (09:41→20:40)
[2022-06-08 12:00] VITALS: BP 152/64
[2022-06-08] MEDS ORDERED: ALPRAZolam 0.25 MG TAB PO ONE (12:30)
[2022-06-08 16:00] VITALS: BP 148/64
[2022-06-08 20:00] VITALS: BP 174/58
[2022-06-08] MEDS: ROSUVASTATIN 10 MG TAB (CRESTOR) PO SCH (20:38)
[2022-06-08] MEDS: RAMELTEON 8 MG TAB (ROZEREM) PO PRN (20:40)
[2022-06-09 04:23] LABS: BASO % 0.8 % (0.0-1.0); EOS # 0.2 10^3/uL (0.0-0.5); EOS % 3.5 % (0.0-3.0); HEMATOCRIT 27.1 % (36.0-47.0); HEMOGLOBIN 8.6 g/dl (12.0-15.5); LYMPH # 0.7 10^3/uL (1.5-5.0); LYMPH % 14.3 % (24.0-44.0); MEAN CORPUSCULAR HEMOGLOBIN 29.3 pg (27.0-33.0); MEAN CORPUSCULAR HGB CONC 31.7 g/dl (32.0-36.5); MEAN CORPUSCULAR VOLUME 92.2 fl (80.0-96.0); MONO # 0.5 10^3/uL (0.0-0.8); MONO % 10.5 % (2.0-8.0); NEUTROPHILS # 3.3 10^3/uL (1.5-8.5); NEUTROPHILS % 68.4 % (36.0-66.0); PLATELET COUNT, AUTOMATED 210 10^3/uL (150-450); RED BLOOD COUNT 2.94 10^6/uL (4.00-5.40); WHITE BLOOD COUNT 4.8 10^3/uL (4.0-10.0)
[2022-06-09 04:55] LABS: ALBUMIN 2.5 G/DL (3.2-5.2); BILIRUBIN,TOTAL 0.2 MG/DL (0.3-1.2); CALCIUM LEVEL 8.2 MG/DL (8.3-10.6); CREATININE FOR GFR 1.75 MG/DL (0.55-1.30); GLOMERULAR FILTRATION RATE 29.9 (>39); MAGNESIUM LEVEL 1.6 MG/DL (1.8-2.4); POTASSIUM SERUM 3.7 MMOL/L (3.5-5.1); TOTAL PROTEIN 5.4 G/DL (5.7-8.2)
[2022-06-09] MEDS: LACTULOSE 20GM/30ML SYRUP UDC PO SCH ×2 (06:00→11:46)
[2022-06-09] MEDS: LEVOTHYROXINE 112MCG TABLET (0.112MG) PO SCH (06:17)
[2022-06-09] MEDS: HEPARIN SOD (PORCINE) 5000UNITS/ML 1ML VIAL/SYRINGE SC SCH ×2 (06:18→13:15)
[2022-06-09] MEDS: INSULIN LISPRO (NovoLOG) PER UNIT SC SCH ×2 (07:30→11:48)
[2022-06-09 07:53] VITALS: BP 170/68
[2022-06-09] MEDS: SERTRALINE HCL 25 MG TABLET PO SCH (08:39)
[2022-06-09] MEDS: clonazePAM 0.5 MG TAB PO SCH (08:39)
[2022-06-09] MEDS: CARVedilol 12.5 MG TAB PO SCH (08:39)
[2022-06-09] MEDS: ASPIRIN 81MG ENTERIC TABLET PO SCH (08:39)
[2022-06-09] MEDS: allopurinoL 100 MG TAB PO SCH (08:39)
[2022-06-09] MEDS: FUROSEMIDE 20 MG TAB PO SCH (08:40)
[2022-06-09] MEDS: POTASSIUM CHLORIDE 10MEQ SR TABLET PO SCH (08:40)
[2022-06-09] MEDS: **hydrALAZINE** 50 MG TAB PO SCH ×2 (08:40→16:06)
[2022-06-09] MEDS: LIDOCAINE 5% (LIDODERM) PATCH TD SCH (08:41)
[2022-06-09] MEDS: LEVEMIR (INSULIN DETEMIR) 1 UNITS/0.01ML SC SCH (08:41)
[2022-06-09] MEDS ORDERED: ONDANSETRON 4MG TAB PO PRN (10:50)
[2022-06-09 12:48] VITALS: BP 140/58
[2022-06-09] MEDS ORDERED: AMLO1TAB25 PO (13:15)
[2022-06-09] MEDS ORDERED: HYDR50TA PO (13:15)
[2022-06-09] MEDS ORDERED: COLA100C5 PO (13:20)
[2022-06-09] MEDS ORDERED: LACT20EL PO (13:20)
[2022-06-09 16:06] VITALS: BP 179/73
[2022-06-09] MEDS: ACETAMINOPHEN TAB 650MG DOSE (2X325MG) PO PRN (16:19)
== END 2022-06-09 16:47 | disposition home health service (06) | DRG 388 ==
LOC: M ED 19:02 → M ED INP 05-29 02:07 → M MS5PR 05-29 03:00 → M PCU 05-30 17:17
PROVIDERS: ADMIT Internal Medicine; ATTEND Internal Medicine
PROC: 0DJD8ZZ Inspection of Lower Intestinal Tract, Via Natural or Artificial Opening Endoscopic (ICD-10-PCS; principal; 2022-06-01 11:00)
PROC: B246ZZZ Ultrasonography of Right and Left Heart (ICD-10-PCS; 2022-06-06)
DX: K56.41 Fecal impaction (principal); I50.33 Acute on chronic diastolic (congestive) heart failure; N17.9 Acute kidney failure, unspecified; I13.0 Hypertensive heart and chronic kidney disease with heart failure and stage 1 through stage 4 chronic kidney disease, or unspecified chronic kidney disease; Z68.41 Body mass index [BMI] 40.0-44.9, adult; I16.0 Hypertensive urgency; K64.2 Third degree hemorrhoids; E11.22 Type 2 diabetes mellitus with diabetic chronic kidney disease; E78.5 Hyperlipidemia, unspecified; N39.490 Overflow incontinence; G47.33 Obstructive sleep apnea (adult) (pediatric); N28.1 Cyst of kidney, acquired; E03.9 Hypothyroidism, unspecified; N18.32 Chronic kidney disease, stage 3b; F32.A Depression, unspecified; F41.9 Anxiety disorder, unspecified; Z90.49 Acquired absence of other specified parts of digestive tract; Z90.79 Acquired absence of other genital organ(s); Z79.82 Long term (current) use of aspirin; Z79.4 Long term (current) use of insulin; Z79.890 Hormone replacement therapy; Z79.899 Other long term (current) drug therapy; Z88.5 Allergy status to narcotic agent; Z20.822 Contact with and (suspected) exposure to COVID-19; E87.6 Hypokalemia; R09.02 Hypoxemia; E11.649 Type 2 diabetes mellitus with hypoglycemia without coma; D64.9 Anemia, unspecified; M10.9 Gout, unspecified; E66.01 Morbid (severe) obesity due to excess calories

== ENCOUNTER → 2022-06-16 | Outpatient (CLI) | payer MEDICARE ==
[~2022-06-16] MED LIST changes: +AMLO1TAB25 PO; +ASPI81TA26 PO; +CLON0.5T2 PO; +COLA100C5 PO; +CYCL-707 PO; +D3 M1CAP2 PO; +FERR1TAB8 PO; +FURO40TA2 PO; +HYDR-3911 PO; +HYDR50TA PO; +LACT20EL PO; +LEVA12INH INH; +MELA10CA2 PO; +POTA-151 PO; +ROSU20TA5 PO; +THERTAB52 PO; +TOUJ1.2I INJ
[2022-06-16 16:55] LABS: CALCIUM LEVEL 9.1 MG/DL (8.3-10.6); CREATININE FOR GFR 1.73 MG/DL (0.55-1.30); GLOMERULAR FILTRATION RATE 30.3 (>39); MAGNESIUM LEVEL 2.2 MG/DL (1.8-2.4); POTASSIUM SERUM 4.5 MMOL/L (3.5-5.1)
== END ==
LOC: M WUC 11:40
PROVIDERS: ATTEND Internal Medicine
DX: E87.6 Hypokalemia (principal)

== ENCOUNTER → 2022-09-20 | Outpatient (REF) | payer MEDICARE ==
[~2022-09-20] MED LIST changes: -DILT1CAP6 PO; +DILT240C42 PO
[2022-09-20 18:41] LABS: CREATININE,RANDOM URINE 111.1 MG/DL
[2022-09-20 18:47] LABS: TOTAL PROTEIN,RANDOM URINE 147.6 MG/DL (0.0-14.0)
== END ==
LOC: M LAB REF 17:05
PROVIDERS: ATTEND Nurse Practitioner Family
DX: R80.9 Proteinuria, unspecified (principal)

== ENCOUNTER → 2022-10-10 | Outpatient (CLI) | payer MEDICARE ==
[~2022-10-10] MED LIST changes: -K-TA10TA2 PO; +POTA-165 PO; -ROSU20TA5 PO; +ROSU20TA61 PO
[2022-10-10 12:44] LABS: BASO # 0.1 10^3/uL (0.0-0.2); BASO % 1.1 % (0.0-1.0); EOS # 0.2 10^3/uL (0.0-0.5); EOS % 4.7 % (0.0-3.0); HEMATOCRIT 35.7 % (36.0-47.0); HEMOGLOBIN 11.6 g/dl (12.0-15.5); LYMPH # 0.9 10^3/uL (1.5-5.0); LYMPH % 20.2 % (24.0-44.0); MEAN CORPUSCULAR HEMOGLOBIN 31.4 pg (27.0-33.0); MEAN CORPUSCULAR HGB CONC 32.5 g/dl (32.0-36.5); MEAN CORPUSCULAR VOLUME 96.5 fl (80.0-96.0); MONO # 0.4 10^3/uL (0.0-0.8); MONO % 7.8 % (2.0-8.0); PLATELET COUNT, AUTOMATED 165 10^3/uL (150-450); WHITE BLOOD COUNT 4.5 10^3/uL (4.0-10.0)
[2022-10-10 13:15] LABS: ALBUMIN 3.7 G/DL (3.2-5.2); BILIRUBIN,TOTAL 0.3 MG/DL (0.3-1.2); CHOLESTEROL RISK RATIO 3.6 (<5); CREATININE FOR GFR 1.78 MG/DL (0.55-1.30); GLOMERULAR FILTRATION RATE 29.3 (>39); HDL CHOLESTEROL 48.2 MG/DL (>40); LDL CHOLESTEROL 96.8 MG/DL (<100); NON-HDL-C 125.8 MG/DL; TOTAL PROTEIN 6.2 G/DL (5.7-8.2)
[2022-10-10 13:16] LABS: FREE T4 1.27 NG/DL (0.89-1.76); THYROID STIMULATING HORMONE 2.569 uIU/ML (0.55-4.78)
== END ==
LOC: M WUC 10:14
PROVIDERS: ATTEND Family Medicine
DX: E11.22 Type 2 diabetes mellitus with diabetic chronic kidney disease (principal); E78.2 Mixed hyperlipidemia; E03.9 Hypothyroidism, unspecified; N18.9 Chronic kidney disease, unspecified

== ENCOUNTER → 2023-01-12 | Outpatient (CLI) | payer MEDICARE ==
[2023-01-12 10:57] LABS: BASO % 0.9 % (0.0-1.0); EOS # 0.3 10^3/uL (0.0-0.5); EOS % 5.7 % (0.0-3.0); HEMATOCRIT 36.1 % (36.0-47.0); HEMOGLOBIN 11.6 g/dl (12.0-15.5); MEAN CORPUSCULAR HGB CONC 32.1 g/dl (32.0-36.5); MEAN CORPUSCULAR VOLUME 96.5 fl (80.0-96.0); MONO # 0.5 10^3/uL (0.0-0.8); MONO % 10.2 % (2.0-8.0); NEUTROPHILS # 2.7 10^3/uL (1.5-8.5); PLATELET COUNT, AUTOMATED 159 10^3/uL (150-450); RED BLOOD COUNT 3.74 10^6/uL (4.00-5.40); WHITE BLOOD COUNT 4.4 10^3/uL (4.0-10.0)
[2023-01-12 11:18] LABS: CREATININE, URINE 86.1 MG/DL
[2023-01-12 11:20] LABS: ALBUMIN 3.8 G/DL (3.2-5.2); BILIRUBIN,TOTAL 0.3 MG/DL (0.3-1.2); CALCIUM LEVEL 8.8 MG/DL (8.3-10.6); CREATININE FOR GFR 1.73 MG/DL (0.55-1.30); GLOMERULAR FILTRATION RATE 30.3 (>39); POTASSIUM SERUM 3.7 MMOL/L (3.5-5.1); THYROID STIMULATING HORMONE 5.107 uIU/ML (0.55-4.78); TOTAL PROTEIN 6.8 G/DL (5.7-8.2)
[2023-01-12 11:22] LABS: FREE T4 1.14 NG/DL (0.89-1.76)
[2023-01-12 11:24] LABS: HEMOGLOBIN A1c 5.6 % (4.0-6.0)
[2023-01-12 11:34] LABS: MAU/CREAT RATIO 609.7 MCG/MG (0.0-30.0)
== END ==
LOC: M WUC 08:30
PROVIDERS: ATTEND Physician Assistant
DX: E11.22 Type 2 diabetes mellitus with diabetic chronic kidney disease (principal); E03.9 Hypothyroidism, unspecified

== ENCOUNTER 2023-04-01 18:20 | Inpatient (IN) | payer MEDICARE ==
[~2023-04-01] VITALS: Ht 147.3 cm; Wt 78.6 kg
[2023-04-01 19:07] LABS: BASO # 0.1 10^3/uL (0.0-0.2); EOS # 0.1 10^3/uL (0.0-0.5); EOS % 2.6 % (0.0-3.0); HEMATOCRIT 37.1 % (36.0-47.0); HEMOGLOBIN 12.1 g/dl (12.0-15.5); LYMPH # 0.6 10^3/uL (1.5-5.0); MEAN CORPUSCULAR HEMOGLOBIN 31.1 pg (27.0-33.0); MEAN CORPUSCULAR HGB CONC 32.6 g/dl (32.0-36.5); MEAN CORPUSCULAR VOLUME 95.4 fl (80.0-96.0); MONO # 0.4 10^3/uL (0.0-0.8); MONO % 7.1 % (2.0-8.0); NEUTROPHILS # 3.8 10^3/uL (1.5-8.5); NEUTROPHILS % 77.1 % (36.0-66.0); PLATELET COUNT, AUTOMATED 172 10^3/uL (150-450); RED BLOOD COUNT 3.89 10^6/uL (4.00-5.40); WHITE BLOOD COUNT 4.9 10^3/uL (4.0-10.0)
[2023-04-01] MEDS ORDERED: LOSA25TA13 PO (19:21)
[2023-04-01] MEDS ORDERED: LEVO125T4 PO (19:21)
[2023-04-01 19:23] LABS: BLOOD UREA NITROGEN 72 MG/DL (9-23); CALCIUM LEVEL 8.8 MG/DL (8.3-10.6); CARBON DIOXIDE LEVEL 24 MMOL/L (20-31); CHLORIDE LEVEL 105 MMOL/L (98-107); CK-MB VALUE MASS < 1.0 NG/ML (<3.6); CREATININE FOR GFR 1.99 MG/DL (0.55-1.30); GLOMERULAR FILTRATION RATE 25.7 (>39); GLUCOSE, FASTING 94 MG/DL (74-106); POTASSIUM SERUM 4.3 MMOL/L (3.5-5.1); SODIUM LEVEL 139 MMOL/L (136-145)
[2023-04-01 19:26] LABS: CPK CREATINE PHOSPHOKINASE 67 U/L (34-145); MB/CK RELATIVE INDEX 1.49 (< OR =4)
[2023-04-01 20:49] LABS: CK-MB VALUE MASS < 1.0 NG/ML (<3.6)
[2023-04-01] MEDS ORDERED: CARVedilol 12.5 MG TAB PO ONE (20:50)
[2023-04-01] MEDS ORDERED: **hydrALAZINE** 50 MG TAB PO ONE (20:50)
[2023-04-01 20:51] LABS: CPK CREATINE PHOSPHOKINASE 57 U/L (34-145); MB/CK RELATIVE INDEX 1.75 (< OR =4)
[2023-04-01] MEDS ORDERED: NS 1,000 ML IV SCH (21:55)
[2023-04-01] MEDS ORDERED: NS 500 ML IV ONE (21:55)
[2023-04-01 22:36] LABS: RSV AMPLIFICATION NEGATIVE (NEGATIVE)
[2023-04-01] MEDS ORDERED: HYDR-3911 PO (23:23)
[2023-04-01] MEDS ORDERED: SERT25TA21 PO (23:23)
[2023-04-01] MEDS ORDERED: COLA100C5 PO (23:23)
[2023-04-01] MEDS ORDERED: LEVA1.25 INH (23:23)
[2023-04-01] MEDS ORDERED: DOXA1TAB40 PO (23:24)
[2023-04-01] MEDS ORDERED: ACET-910 PO (23:26)
[2023-04-01] MEDS ORDERED: HOME MED LIST COMPLETE! XX SCH (23:30)
[2023-04-02] VITALS (9 sets, daily range): BP systolic 146–190; BP diastolic 66–85; PULSE 64; TEMP 97.1–98; O2SAT 94–99
[2023-04-02] MEDS ORDERED: MOM 30ML SUSPENSION UDC PO PRN
[2023-04-02] MEDS ORDERED: MAALOX 30 ML SUSP *UDC PO PRN
[2023-04-02] MEDS ORDERED: hydrALAZINE 20MG/ML 1ML VIAL IV PRN (01:40)
[2023-04-02] MEDS ORDERED: hydrALAZINE 20MG/ML 1ML VIAL As Ordered ONE (01:56)
[2023-04-02] MEDS ORDERED: cloNIDine 0.1MG TABLET PO ONE ×2 (03:10→05:00)
[2023-04-02] MEDS ORDERED: clonazePAM 0.5 MG TAB PO ONE (05:00)
[2023-04-02 08:36] LABS: BASO # 0.1 10^3/uL (0.0-0.2); EOS # 0.2 10^3/uL (0.0-0.5); EOS % 3.3 % (0.0-3.0); HEMATOCRIT 33.9 % (36.0-47.0); LYMPH # 1.1 10^3/uL (1.5-5.0); LYMPH % 21.9 % (24.0-44.0); MEAN CORPUSCULAR HEMOGLOBIN 30.6 pg (27.0-33.0); MEAN CORPUSCULAR HGB CONC 32.4 g/dl (32.0-36.5); MEAN CORPUSCULAR VOLUME 94.4 fl (80.0-96.0); MONO # 0.4 10^3/uL (0.0-0.8); MONO % 7.2 % (2.0-8.0); NEUTROPHILS # 3.2 10^3/uL (1.5-8.5); NEUTROPHILS % 66.4 % (36.0-66.0); PLATELET COUNT, AUTOMATED 156 10^3/uL (150-450); RED BLOOD COUNT 3.59 10^6/uL (4.00-5.40); WHITE BLOOD COUNT 4.8 10^3/uL (4.0-10.0)
[2023-04-02] MEDS: DOCUSATE SODIUM 100MG CAPSULE PO SCH ×2 (09:00→21:25)
[2023-04-02 09:01] LABS: CALCIUM LEVEL 8.5 MG/DL (8.3-10.6); CREATININE FOR GFR 1.63 MG/DL (0.55-1.30); GLOMERULAR FILTRATION RATE 32.4 (>39); POTASSIUM SERUM 3.7 MMOL/L (3.5-5.1)
[2023-04-02] MEDS: ENOXAPARIN 30MG/0.3ML SYRINGE (J1650 PER 10MG) SC SCH (09:36)
[2023-04-02] MEDS ORDERED: DEXTROSE 50% 50ML SYRINGE IV PRN ×2 (10:30)
[2023-04-02] MEDS ORDERED: GLUCAGON INJ 1MG VIAL SC PRN ×2 (10:30)
[2023-04-02] MEDS ORDERED: GLUCOSE 4GM CHEW TABLET PO PRN ×2 (10:30)
[2023-04-02] MEDS ORDERED: INSULIN LISPRO (NovoLOG) PER UNIT SC SCH ×2 (12:00→21:00)
[2023-04-02] MEDS ORDERED: DOCUSATE SODIUM 100MG CAPSULE PO PRN (12:00)
[2023-04-02] MEDS: DOXAZOSIN MESYLATE 4 MG TAB PO SCH (12:00)
[2023-04-02] MEDS ORDERED: LEVALBUTEROL 1.25MG 0.5ML CONCENTRATE NEB INH PRN (12:00)
[2023-04-02] MEDS ORDERED: MIRALAX *UNIT DOSE* 17GM PACKET PO PRN (12:00)
[2023-04-02] MEDS: INSULIN LISPRO (NovoLOG) PER UNIT SC SCH ×3 (13:05→21:00)
[2023-04-02] MEDS: **hydrALAZINE** 50 MG TAB PO SCH ×2 (13:06→21:23)
[2023-04-02] MEDS: ASPIRIN 81MG ENTERIC TABLET PO SCH (13:06)
[2023-04-02] MEDS: allopurinoL 100 MG TAB PO SCH (13:06)
[2023-04-02] MEDS: CARVedilol 12.5 MG TAB PO SCH ×2 (13:07→21:21)
[2023-04-02] MEDS: FUROSEMIDE 40 MG TAB PO SCH (13:07)
[2023-04-02] MEDS: SERTRALINE HCL 25 MG TABLET PO SCH ×2 (13:07→21:21)
[2023-04-02] MEDS: LEVOTHYROXINE 125MCG TABLET (0.125MG) PO SCH (13:08)
[2023-04-02] MEDS: POTASSIUM CHLORIDE 10MEQ SR TABLET PO SCH (13:08)
[2023-04-02] MEDS: MAGNESIUM OXIDE 400MG TAB (MAG-OX) PO SCH (13:08)
[2023-04-02] MEDS: LEVEMIR (INSULIN DETEMIR) 1 UNITS/0.01ML SC SCH (21:00)
[2023-04-02] MEDS: ROSUVASTATIN 10 MG TAB (CRESTOR) PO SCH (21:22)
[2023-04-02] MEDS: FERROUS SULFATE 325MG TAB PO SCH (21:22)
[2023-04-02] MEDS: dilTIAZem 120MG **CD** CAPSULE PO SCH (21:23)
[2023-04-02] MEDS: clonazePAM 0.5 MG TAB PO PRN (21:24)
[2023-04-03] VITALS (9 sets, daily range): BP systolic 0–230; BP diastolic 50–82; PULSE 64; TEMP 96.5–97.9; O2SAT 95–99
[2023-04-03 06:11] LABS: HEMOGLOBIN 10.8 g/dl (12.0-15.5); MEAN CORPUSCULAR HGB CONC 32.7 g/dl (32.0-36.5); MEAN CORPUSCULAR VOLUME 94.8 fl (80.0-96.0); PLATELET COUNT, AUTOMATED 140 10^3/uL (150-450); RED BLOOD COUNT 3.48 10^6/uL (4.00-5.40); WHITE BLOOD COUNT 4.8 10^3/uL (4.0-10.0)
[2023-04-03 06:29] LABS: CALCIUM LEVEL 8.8 MG/DL (8.3-10.6); CREATININE FOR GFR 1.64 MG/DL (0.55-1.30); GLOMERULAR FILTRATION RATE 32.2 (>39); POTASSIUM SERUM 3.6 MMOL/L (3.5-5.1)
[2023-04-03] MEDS: allopurinoL 100 MG TAB PO SCH (09:50)
[2023-04-03] MEDS: INSULIN LISPRO (NovoLOG) PER UNIT SC SCH ×4 (09:51→20:08)
[2023-04-03] MEDS: LEVEMIR (INSULIN DETEMIR) 1 UNITS/0.01ML SC SCH ×2 (09:51→23:10)
[2023-04-03] MEDS: ENOXAPARIN 30MG/0.3ML SYRINGE (J1650 PER 10MG) SC SCH (09:51)
[2023-04-03] MEDS: **hydrALAZINE** 50 MG TAB PO SCH ×2 (09:52→20:04)
[2023-04-03] MEDS: DOXAZOSIN MESYLATE 4 MG TAB PO SCH (09:52)
[2023-04-03] MEDS: ASPIRIN 81MG ENTERIC TABLET PO SCH (09:52)
[2023-04-03] MEDS: LEVOTHYROXINE 125MCG TABLET (0.125MG) PO SCH (09:53)
[2023-04-03] MEDS: FUROSEMIDE 40 MG TAB PO SCH (09:53)
[2023-04-03] MEDS: CARVedilol 12.5 MG TAB PO SCH ×2 (09:53→20:03)
[2023-04-03] MEDS: MAGNESIUM OXIDE 400MG TAB (MAG-OX) PO SCH (09:54)
[2023-04-03] MEDS: POTASSIUM CHLORIDE 10MEQ SR TABLET PO SCH (09:54)
[2023-04-03] MEDS: SERTRALINE HCL 25 MG TABLET PO SCH ×2 (09:54→20:02)
[2023-04-03] MEDS: DOCUSATE SODIUM 100MG CAPSULE PO SCH ×2 (09:54→20:03)
[2023-04-03] MEDS: TELMISARTAN 20 MG TAB PO SCH (09:54)
[2023-04-03] MEDS ORDERED: ONDANSETRON 4MG ORAL DISINTEGRATING TAB SL PRN (17:40)
[2023-04-03] MEDS: ROSUVASTATIN 10 MG TAB (CRESTOR) PO SCH (20:02)
[2023-04-03] MEDS: dilTIAZem 120MG **CD** CAPSULE PO SCH (20:03)
[2023-04-03] MEDS: FERROUS SULFATE 325MG TAB PO SCH (20:04)
[2023-04-04] VITALS (7 sets, daily range): BP systolic 152–204; BP diastolic 54–80; TEMP 96.9–98.3; O2SAT 94–99
[2023-04-04] MEDS ORDERED: amLODIPine 5 MG TAB PO ONE (02:00)
[2023-04-04] MEDS ORDERED: NIFEdipine 30MG XL TAB PO ONE (03:00)
[2023-04-04] MEDS: TELMISARTAN 20 MG TAB PO SCH (07:34)
[2023-04-04 07:50] LABS: CALCIUM LEVEL 8.5 MG/DL (8.3-10.6); CREATININE FOR GFR 1.73 MG/DL (0.55-1.30); GLOMERULAR FILTRATION RATE 30.2 (>39); POTASSIUM SERUM 3.8 MMOL/L (3.5-5.1)
[2023-04-04] MEDS: ENOXAPARIN 30MG/0.3ML SYRINGE (J1650 PER 10MG) SC SCH (08:50)
[2023-04-04] MEDS: allopurinoL 100 MG TAB PO SCH (08:51)
[2023-04-04] MEDS: INSULIN LISPRO (NovoLOG) PER UNIT SC SCH ×4 (08:51→20:53)
[2023-04-04] MEDS: LEVEMIR (INSULIN DETEMIR) 1 UNITS/0.01ML SC SCH ×2 (08:51→20:52)
[2023-04-04] MEDS: **hydrALAZINE** 50 MG TAB PO SCH ×3 (08:52→20:51)
[2023-04-04] MEDS: ASPIRIN 81MG ENTERIC TABLET PO SCH (08:52)
[2023-04-04] MEDS: FUROSEMIDE 40 MG TAB PO SCH (08:53)
[2023-04-04] MEDS: LEVOTHYROXINE 125MCG TABLET (0.125MG) PO SCH (08:53)
[2023-04-04] MEDS: MAGNESIUM OXIDE 400MG TAB (MAG-OX) PO SCH (08:53)
[2023-04-04] MEDS: POTASSIUM CHLORIDE 10MEQ SR TABLET PO SCH (08:53)
[2023-04-04] MEDS: SERTRALINE HCL 25 MG TABLET PO SCH ×2 (08:53→20:51)
[2023-04-04] MEDS: DOXAZOSIN MESYLATE 4 MG TAB PO SCH (08:53)
[2023-04-04] MEDS: DOCUSATE SODIUM 100MG CAPSULE PO SCH ×2 (08:53→20:51)
[2023-04-04] MEDS: CARVedilol 12.5 MG TAB PO SCH ×2 (08:54→20:52)
[2023-04-04] MEDS: ACETAMINOPHEN TAB 650MG DOSE (2X325MG) PO PRN (09:22)
[2023-04-04] MEDS: ROSUVASTATIN 10 MG TAB (CRESTOR) PO SCH (20:51)
[2023-04-04] MEDS: FERROUS SULFATE 325MG TAB PO SCH (20:51)
[2023-04-05 05:16] VITALS: BP 162/70; TEMP 98.2; O2SAT 98
[2023-04-05 06:12] LABS: HEMATOCRIT 33.9 % (36.0-47.0); HEMOGLOBIN 11.1 g/dl (12.0-15.5); MEAN CORPUSCULAR HEMOGLOBIN 30.7 pg (27.0-33.0); MEAN CORPUSCULAR HGB CONC 32.7 g/dl (32.0-36.5); MEAN CORPUSCULAR VOLUME 93.6 fl (80.0-96.0); PLATELET COUNT, AUTOMATED 133 10^3/uL (150-450); RED BLOOD COUNT 3.62 10^6/uL (4.00-5.40); WHITE BLOOD COUNT 5.4 10^3/uL (4.0-10.0)
[2023-04-05 06:42] LABS: CALCIUM LEVEL 8.3 MG/DL (8.3-10.6); CREATININE FOR GFR 2.06 MG/DL (0.55-1.30); GLOMERULAR FILTRATION RATE 24.7 (>39); POTASSIUM SERUM 3.8 MMOL/L (3.5-5.1)
[2023-04-05] MEDS: INSULIN LISPRO (NovoLOG) PER UNIT SC SCH ×4 (07:30→21:00)
[2023-04-05 08:35] VITALS: BP 180/98; TEMP 98.1; O2SAT 97
[2023-04-05] MEDS: ENOXAPARIN 30MG/0.3ML SYRINGE (J1650 PER 10MG) SC SCH (09:08)
[2023-04-05] MEDS: LEVOTHYROXINE 125MCG TABLET (0.125MG) PO SCH (09:09)
[2023-04-05] MEDS: LEVEMIR (INSULIN DETEMIR) 1 UNITS/0.01ML SC SCH ×2 (09:09→21:17)
[2023-04-05] MEDS: ASPIRIN 81MG ENTERIC TABLET PO SCH (09:11)
[2023-04-05] MEDS: DOCUSATE SODIUM 100MG CAPSULE PO SCH ×2 (09:11→21:08)
[2023-04-05] MEDS: DOXAZOSIN MESYLATE 4 MG TAB PO SCH (09:11)
[2023-04-05] MEDS: allopurinoL 100 MG TAB PO SCH (09:12)
[2023-04-05] MEDS: **hydrALAZINE** 50 MG TAB PO SCH ×3 (09:13→21:14)
[2023-04-05] MEDS: CARVedilol 12.5 MG TAB PO SCH ×2 (09:14→21:15)
[2023-04-05] MEDS: POTASSIUM CHLORIDE 10MEQ SR TABLET PO SCH (09:15)
[2023-04-05] MEDS: SERTRALINE HCL 25 MG TABLET PO SCH ×2 (09:15→21:09)
[2023-04-05] MEDS: MAGNESIUM OXIDE 400MG TAB (MAG-OX) PO SCH (09:15)
[2023-04-05] MEDS: ACETAMINOPHEN TAB 650MG DOSE (2X325MG) PO PRN (09:18)
[2023-04-05] MEDS ORDERED: LR 1,000 ML IV ONE (09:50)
[2023-04-05] MEDS: TELMISARTAN 20 MG TAB PO SCH (10:21)
[2023-04-05 13:35] LABS: CALCIUM LEVEL 8.7 MG/DL (8.3-10.6); CREATININE FOR GFR 1.81 MG/DL (0.55-1.30); GLOMERULAR FILTRATION RATE 28.7 (>39)
[2023-04-05 14:07] VITALS: BP 168/60; TEMP 98.1; O2SAT 95
[2023-04-05 21:00] VITALS: BP 152/88; TEMP 97.5; O2SAT 97
[2023-04-05] MEDS: FERROUS SULFATE 325MG TAB PO SCH (21:08)
[2023-04-05] MEDS: ROSUVASTATIN 10 MG TAB (CRESTOR) PO SCH (21:09)
[2023-04-05 21:10] VITALS: BP 200/78
[2023-04-05 21:57] VITALS: BP 184/70
[2023-04-05] MEDS ORDERED: TELMISARTAN 20 MG TAB PO ONE (22:00)
[2023-04-06] MEDS ORDERED: NYSTATIN 100,000 UNITS/GM TOPICAL PWD 15GM TOP ONE (04:00)
[2023-04-06 05:08] VITALS: BP 150/90; TEMP 97.2; O2SAT 95
[2023-04-06 07:20] LABS: ALBUMIN 3.3 G/DL (3.2-5.2); CALCIUM LEVEL 8.9 MG/DL (8.3-10.6); CREATININE FOR GFR 1.61 MG/DL (0.55-1.30); GLOMERULAR FILTRATION RATE 32.9 (>39); PHOSPHORUS LEVEL 4.4 MG/DL (2.4-5.1); POTASSIUM SERUM 3.7 MMOL/L (3.5-5.1)
[2023-04-06] MEDS: INSULIN LISPRO (NovoLOG) PER UNIT SC SCH ×4 (07:30→21:00)
[2023-04-06] MEDS: DOXAZOSIN MESYLATE 4 MG TAB PO SCH (09:06)
[2023-04-06] MEDS: TELMISARTAN 20 MG TAB PO SCH (09:07)
[2023-04-06] MEDS: POTASSIUM CHLORIDE 10MEQ SR TABLET PO SCH (09:07)
[2023-04-06] MEDS: HEPARIN SOD (PORCINE) 5000UNITS/ML 1ML VIAL/SYRINGE SQ SCH ×2 (09:07→16:44)
[2023-04-06] MEDS: ASPIRIN 81MG ENTERIC TABLET PO SCH (09:08)
[2023-04-06] MEDS: **hydrALAZINE** 50 MG TAB PO SCH ×3 (09:08→21:27)
[2023-04-06] MEDS: SERTRALINE HCL 25 MG TABLET PO SCH ×2 (09:08→21:27)
[2023-04-06] MEDS: DOCUSATE SODIUM 100MG CAPSULE PO SCH ×2 (09:08→21:24)
[2023-04-06] MEDS: MAGNESIUM OXIDE 400MG TAB (MAG-OX) PO SCH (09:08)
[2023-04-06] MEDS: LEVOTHYROXINE 125MCG TABLET (0.125MG) PO SCH (09:08)
[2023-04-06] MEDS: LEVEMIR (INSULIN DETEMIR) 1 UNITS/0.01ML SC SCH ×2 (09:09→21:28)
[2023-04-06] MEDS: CARVedilol 12.5 MG TAB PO SCH ×2 (09:10→21:26)
[2023-04-06] MEDS: FUROSEMIDE 40 MG TAB PO SCH (09:14)
[2023-04-06] MEDS ORDERED: HYDR100T PO (10:25)
[2023-04-06] MEDS ORDERED: FURO40TA2 PO (10:25)
[2023-04-06] MEDS ORDERED: TELM1TAB35 PO (10:25)
[2023-04-06 14:00] VITALS: BP 132/72; TEMP 97.7; O2SAT 97
[2023-04-06 21:14] VITALS: BP 170/80; TEMP 98.2; O2SAT 94
[2023-04-06] MEDS: ROSUVASTATIN 10 MG TAB (CRESTOR) PO SCH (21:27)
[2023-04-06] MEDS: FERROUS SULFATE 325MG TAB PO SCH (21:28)
[2023-04-06] MEDS: clonazePAM 0.5 MG TAB PO PRN (21:28)
[2023-04-07 06:00] VITALS: BP 160/74; TEMP 98.6; O2SAT 97
[2023-04-07] MEDS: INSULIN LISPRO (NovoLOG) PER UNIT SC SCH ×2 (07:30→13:12)
[2023-04-07 08:28] LABS: CALCIUM LEVEL 9.1 MG/DL (8.3-10.6); CREATININE FOR GFR 1.53 MG/DL (0.55-1.30); GLOMERULAR FILTRATION RATE 34.9 (>39); PHOSPHORUS LEVEL 4.3 MG/DL (2.4-5.1); POTASSIUM SERUM 4.4 MMOL/L (3.5-5.1)
[2023-04-07] MEDS: ASPIRIN 81MG ENTERIC TABLET PO SCH (08:45)
[2023-04-07] MEDS: HEPARIN SOD (PORCINE) 5000UNITS/ML 1ML VIAL/SYRINGE SQ SCH ×2 (08:45)
[2023-04-07] MEDS: DOCUSATE SODIUM 100MG CAPSULE PO SCH (08:45)
[2023-04-07] MEDS: LEVOTHYROXINE 125MCG TABLET (0.125MG) PO SCH (08:45)
[2023-04-07] MEDS: SERTRALINE HCL 25 MG TABLET PO SCH (08:45)
[2023-04-07 08:48] VITALS: BP 172/70
[2023-04-07] MEDS: **hydrALAZINE** 50 MG TAB PO SCH (08:48)
[2023-04-07] MEDS: TELMISARTAN 20 MG TAB PO SCH (08:48)
[2023-04-07] MEDS: DOXAZOSIN MESYLATE 4 MG TAB PO SCH (08:48)
[2023-04-07] MEDS: POTASSIUM CHLORIDE 10MEQ SR TABLET PO SCH (08:48)
[2023-04-07] MEDS: MAGNESIUM OXIDE 400MG TAB (MAG-OX) PO SCH (08:48)
[2023-04-07] MEDS: CARVedilol 12.5 MG TAB PO SCH (08:50)
[2023-04-07] MEDS ORDERED: LEVEMIR (INSULIN DETEMIR) 1 UNITS/0.01ML SC SCH (09:00)
[2023-04-07] MEDS ORDERED: FUROSEMIDE 40 MG TAB PO SCH (09:00)
== END 2023-04-07 14:29 | disposition home or self-care (01) | DRG 312 ==
LOC: M ED 18:20 → M ED INP 04-02 → M PCU 04-02 03:25 → M MSPAV 04-04 15:30
PROVIDERS: ADMIT Internal Medicine; ATTEND Student in an Organized Health Care Education/Training Program
DX: R55 Syncope and collapse (principal); I50.32 Chronic diastolic (congestive) heart failure; N17.9 Acute kidney failure, unspecified; I13.0 Hypertensive heart and chronic kidney disease with heart failure and stage 1 through stage 4 chronic kidney disease, or unspecified chronic kidney disease; I27.81 Cor pulmonale (chronic); E11.649 Type 2 diabetes mellitus with hypoglycemia without coma; K59.00 Constipation, unspecified; N18.32 Chronic kidney disease, stage 3b; I70.1 Atherosclerosis of renal artery; G47.33 Obstructive sleep apnea (adult) (pediatric); M10.9 Gout, unspecified; D50.9 Iron deficiency anemia, unspecified; F32.A Depression, unspecified; F41.9 Anxiety disorder, unspecified; Z88.5 Allergy status to narcotic agent; Z88.8 Allergy status to other drugs, medicaments and biological substances; Z79.899 Other long term (current) drug therapy; Z79.82 Long term (current) use of aspirin; Z79.4 Long term (current) use of insulin; K57.30 Diverticulosis of large intestine without perforation or abscess without bleeding; E78.00 Pure hypercholesterolemia, unspecified; I65.23 Occlusion and stenosis of bilateral carotid arteries; E89.0 Postprocedural hypothyroidism; I16.0 Hypertensive urgency

== ENCOUNTER → 2023-05-31 | Outpatient (CLI) | payer MEDICARE ==
[~2023-05-31] MED LIST changes: +ACET-910 PO; +DOXA1TAB40 PO; -HYDR-3911 PO; +HYDR100T PO; -HYDR50TA PO; +HYDR50TA46 PO; +HYDR50TA47 PO; +LEVA1.25 INH; +LEVO125T4 PO; +LOSA25TA13 PO; +SERT25TA21 PO; +TELM1TAB35 PO
[2023-05-31 12:28] LABS: BASO # 0.1 10^3/uL (0.0-0.2); BASO % 1.4 % (0.0-1.0); EOS # 0.2 10^3/uL (0.0-0.5); EOS % 5.7 % (0.0-3.0); HEMATOCRIT 33.5 % (36.0-47.0); HEMOGLOBIN 10.7 g/dl (12.0-15.5); LYMPH # 0.8 10^3/uL (1.5-5.0); LYMPH % 22.5 % (24.0-44.0); MEAN CORPUSCULAR HEMOGLOBIN 31.1 pg (27.0-33.0); MEAN CORPUSCULAR HGB CONC 31.9 g/dl (32.0-36.5); MEAN CORPUSCULAR VOLUME 97.4 fl (80.0-96.0); MONO # 0.4 10^3/uL (0.0-0.8); MONO % 11.4 % (2.0-8.0); NEUTROPHILS # 2.1 10^3/uL (1.5-8.5); NEUTROPHILS % 58.7 % (36.0-66.0); PLATELET COUNT, AUTOMATED 150 10^3/uL (150-450); RED BLOOD COUNT 3.44 10^6/uL (4.00-5.40); WHITE BLOOD COUNT 3.5 10^3/uL (4.0-10.0)
[2023-05-31 12:47] LABS: HEMOGLOBIN A1c 5.5 % (4.0-6.0)
[2023-05-31 13:01] LABS: THYROID STIMULATING HORMONE 3.962 uIU/ML (0.55-4.78)
[2023-05-31 13:02] LABS: FREE T4 1.08 NG/DL (0.89-1.76)
[2023-05-31 13:06] LABS: ALBUMIN 3.6 G/DL (3.2-5.2); BILIRUBIN,TOTAL 0.3 MG/DL (0.3-1.2); CALCIUM LEVEL 8.3 MG/DL (8.3-10.6); CHOLESTEROL RISK RATIO 3.52 (<5); CREATININE FOR GFR 1.68 MG/DL (0.55-1.30); GLOMERULAR FILTRATION RATE 31.3 (>39); HDL CHOLESTEROL 47.7 MG/DL (>40); LDL CHOLESTEROL 94.1 MG/DL (<100); NON-HDL-C 120.3 MG/DL; POTASSIUM SERUM 4.6 MMOL/L (3.5-5.1); TOTAL PROTEIN 6.1 G/DL (5.7-8.2)
== END ==
LOC: M WUC 08:46
PROVIDERS: ATTEND Family Medicine
DX: E11.22 Type 2 diabetes mellitus with diabetic chronic kidney disease (principal); E78.2 Mixed hyperlipidemia; E03.9 Hypothyroidism, unspecified

== ENCOUNTER → 2023-09-10 | Outpatient (CLI) | payer MEDICARE ==
[~2023-09-10] MED LIST changes: -HYDR-3910 PO; +HYDR25TA87 PO; -KLON0.5T PO; +KLON0.5T8 PO
[2023-09-10 17:18] LABS: BASO # 0.1 10^3/uL (0.0-0.2); BASO % 1.6 % (0.0-1.0); EOS # 0.2 10^3/uL (0.0-0.5); HEMOGLOBIN 9.9 g/dl (12.0-15.5); MEAN CORPUSCULAR HGB CONC 30.9 g/dl (32.0-36.5); MEAN CORPUSCULAR VOLUME 100.3 fl (80.0-96.0); MONO # 0.3 10^3/uL (0.0-0.8); MONO % 8.7 % (2.0-8.0); NEUTROPHILS # 2.3 10^3/uL (1.5-8.5); NEUTROPHILS % 59.2 % (36.0-66.0); PLATELET COUNT, AUTOMATED 154 10^3/uL (150-450); RED BLOOD COUNT 3.19 10^6/uL (4.00-5.40); WHITE BLOOD COUNT 3.8 10^3/uL (4.0-10.0)
[2023-09-10 17:20] LABS: HEMOGLOBIN A1c 5.3 % (4.0-6.0)
[2023-09-10 17:21] LABS: ALBUMIN 3.6 G/DL (3.2-5.2); BILIRUBIN,TOTAL 0.4 MG/DL (0.3-1.2); CALCIUM LEVEL 8.6 MG/DL (8.3-10.6); CHOLESTEROL RISK RATIO 3.3 (<5); GLOMERULAR FILTRATION RATE 25.6 (>39); POTASSIUM SERUM 4.1 MMOL/L (3.5-5.1); THYROID STIMULATING HORMONE 2.403 uIU/ML (0.55-4.78); TOTAL PROTEIN 6.1 G/DL (5.7-8.2)
[2023-09-10 17:23] LABS: FREE T4 1.1 NG/DL (0.89-1.76)
== END ==
LOC: M WUC 11:15
PROVIDERS: ATTEND Family Medicine
DX: I13.10 Hypertensive heart and chronic kidney disease without heart failure, with stage 1 through stage 4 chronic kidney disease, or unspecified chronic kidney disease (principal); E11.22 Type 2 diabetes mellitus with diabetic chronic kidney disease; E78.2 Mixed hyperlipidemia; E03.9 Hypothyroidism, unspecified

== ENCOUNTER → 2023-09-13 | Outpatient (CLI) | payer MEDICARE | LOC: M PLAIMG 12:21 | PROVIDERS: ATTEND Family Medicine | DX: G31.84 Mild cognitive impairment of uncertain or unknown etiology (principal); R07.81 Pleurodynia; M25.522 Pain in left elbow; M25.521 Pain in right elbow; M25.561 Pain in right knee; Z79.899 Other long term (current) drug therapy ==

== ENCOUNTER 2023-09-24 12:03 | Inpatient (IN) | payer MEDICARE ==
[~2023-09-24] VITALS: Ht 147.3 cm; Wt 78.8 kg
[2023-09-24 12:35] LABS: BASO % 0.9 % (0.0-1.0); EOS # 0.1 10^3/uL (0.0-0.5); EOS % 2.9 % (0.0-3.0); HEMATOCRIT 33.9 % (36.0-47.0); HEMOGLOBIN 10.8 g/dl (12.0-15.5); LYMPH # 0.7 10^3/uL (1.5-5.0); LYMPH % 14.7 % (24.0-44.0); MEAN CORPUSCULAR HEMOGLOBIN 31.4 pg (27.0-33.0); MEAN CORPUSCULAR HGB CONC 31.9 g/dl (32.0-36.5); MEAN CORPUSCULAR VOLUME 98.5 fl (80.0-96.0); MONO # 0.3 10^3/uL (0.0-0.8); MONO % 6.8 % (2.0-8.0); NEUTROPHILS # 3.3 10^3/uL (1.5-8.5); NEUTROPHILS % 74.5 % (36.0-66.0); PLATELET COUNT, AUTOMATED 135 10^3/uL (150-450); RED BLOOD COUNT 3.44 10^6/uL (4.00-5.40); WHITE BLOOD COUNT 4.4 10^3/uL (4.0-10.0)
[2023-09-24 13:01] LABS: LIPASE 41 U/L (12-53)
[2023-09-24 13:03] LABS: ALBUMIN 3.5 G/DL (3.2-5.2); ALKALINE PHOSPHATASE 61 U/L (46-116); ALT/SGPT 20 U/L (7.0-40); AST/SGOT 22 U/L (<34); BILIRUBIN,DIRECT 0.1 MG/DL (<0.4); BILIRUBIN,TOTAL 0.4 MG/DL (0.3-1.2); CK-MB VALUE MASS < 1.0 NG/ML (<3.6); CPK CREATINE PHOSPHOKINASE 112 U/L (34-145); MB/CK RELATIVE INDEX 0.89 (< OR =4); TOTAL PROTEIN 6.1 G/DL (5.7-8.2)
[2023-09-24 15:28] LABS: BLOOD UREA NITROGEN 81 MG/DL (9-23); CALCIUM LEVEL 8.6 MG/DL (8.3-10.6); CARBON DIOXIDE LEVEL 23 MMOL/L (20-31); CHLORIDE LEVEL 109 MMOL/L (98-107); CREATININE FOR GFR 2.66 MG/DL (0.55-1.30); GLOMERULAR FILTRATION RATE 18.4 (>39); GLUCOSE, FASTING 113 MG/DL (74-106); POTASSIUM SERUM 3.5 MMOL/L (3.5-5.1); SODIUM LEVEL 142 MMOL/L (136-145)
[2023-09-24] MEDS: LIDOCAINE 2% 5ML JELLY UROJET TOP ONE (15:30)
[2023-09-24 16:13] LABS: CK-MB VALUE MASS 1.1 NG/ML (<3.6)
[2023-09-24 16:24] LABS: MB/CK RELATIVE INDEX 0.86 (< OR =4)
[2023-09-24] MEDS: NS 1,000 ML IV ONE (16:51)
[2023-09-24] MEDS: **hydrALAZINE** 50 MG TAB PO ONE (17:36)
[2023-09-24 19:30] LABS: HEMATOCRIT 31.7 % (36.0-47.0); HEMOGLOBIN 10.5 g/dl (12.0-15.5); MEAN CORPUSCULAR HEMOGLOBIN 31.6 pg (27.0-33.0); MEAN CORPUSCULAR HGB CONC 33.1 g/dl (32.0-36.5); MEAN CORPUSCULAR VOLUME 95.5 fl (80.0-96.0); PLATELET COUNT, AUTOMATED 130 10^3/uL (150-450); RED BLOOD COUNT 3.32 10^6/uL (4.00-5.40); WHITE BLOOD COUNT 4.3 10^3/uL (4.0-10.0)
[2023-09-24] MEDS ORDERED: GLUCAGON INJ 1MG VIAL SC PRN (19:45)
[2023-09-24] MEDS ORDERED: DEXTROSE 50% 50ML SYRINGE IV PRN (19:45)
[2023-09-24] MEDS ORDERED: GLUCOSE 4 GM CHEW PO PRN (19:45)
[2023-09-24] MEDS ORDERED: CETI-24 PO (21:04)
[2023-09-24] MEDS ORDERED: ALLO300T2 PO (21:04)
[2023-09-24] MEDS ORDERED: HYDR100T PO (21:04)
[2023-09-24] MEDS ORDERED: LEVO1TAB38 PO (21:04)
[2023-09-24] MEDS ORDERED: TELM1TAB37 PO (21:04)
[2023-09-24] MEDS ORDERED: HOME MED LIST COMPLETE! XX SCH (21:10)
[2023-09-24] MEDS: NS 1,000 ML IV SCH (21:46)
[2023-09-24] MEDS: CARVedilol 12.5 MG TAB PO SCH (21:47)
[2023-09-24] MEDS: **hydrALAZINE** 50 MG TAB PO SCH (21:48)
[2023-09-24 22:08] VITALS: TEMP 96.8; O2SAT 95
[2023-09-24 22:25] VITALS: BP 144/72
[2023-09-24] MEDS: ACETAMINOPHEN 650MG ER TAB (TYLENOL ARTHRITIS) PO ONE (23:02)
[2023-09-24] MEDS: DICLOFENAC EPOLAMINE 1.3% PATCH TOP SCH (23:06)
[2023-09-25] VITALS (8 sets, daily range): BP systolic 95–194; BP diastolic 46–78; TEMP 96.6–97.6; O2SAT 96–98
[2023-09-25] MEDS ORDERED: ANALGESIC BALM CRM 3OZ TOP PRN (01:25)
[2023-09-25] MEDS: RAMELTEON 8 MG TAB (ROZEREM) PO ONE (01:29)
[2023-09-25 05:36] LABS: BASO % 0.6 % (0.0-1.0); EOS # 0.1 10^3/uL (0.0-0.5); EOS % 2.9 % (0.0-3.0); HEMATOCRIT 29.8 % (36.0-47.0); HEMOGLOBIN 9.7 g/dl (12.0-15.5); LYMPH # 0.9 10^3/uL (1.5-5.0); LYMPH % 17.6 % (24.0-44.0); MEAN CORPUSCULAR HEMOGLOBIN 31.7 pg (27.0-33.0); MEAN CORPUSCULAR HGB CONC 32.6 g/dl (32.0-36.5); MEAN CORPUSCULAR VOLUME 97.4 fl (80.0-96.0); MONO # 0.4 10^3/uL (0.0-0.8); MONO % 9.1 % (2.0-8.0); NEUTROPHILS # 3.4 10^3/uL (1.5-8.5); NEUTROPHILS % 69.6 % (36.0-66.0); PLATELET COUNT, AUTOMATED 131 10^3/uL (150-450); RED BLOOD COUNT 3.06 10^6/uL (4.00-5.40); WHITE BLOOD COUNT 4.8 10^3/uL (4.0-10.0)
[2023-09-25 06:01] LABS: CALCIUM LEVEL 8.1 MG/DL (8.3-10.6); CREATININE FOR GFR 2.46 MG/DL (0.55-1.30); GLOMERULAR FILTRATION RATE 20.1 (>39); MAGNESIUM LEVEL 1.6 MG/DL (1.8-2.4); POTASSIUM SERUM 3.6 MMOL/L (3.5-5.1)
[2023-09-25] MEDS: INSULIN LISPRO (NovoLOG) PER UNIT SC SCH ×2 (07:30→20:09)
[2023-09-25] MEDS: HEPARIN SOD (PORCINE) 5000UNITS/ML 1ML VIAL/SYRINGE SC SCH (08:06)
[2023-09-25] MEDS: LEVEMIR (INSULIN DETEMIR) 1 UNITS/0.01ML SC SCH (08:06)
[2023-09-25] MEDS: POTASSIUM CHLORIDE 10MEQ SR TABLET PO ONE (12:25)
[2023-09-25] MEDS: MAG SULF 1GM/100ML (MAG RUN) 1 GM in IV 1 EA IV SCH (12:25)
[2023-09-25] MEDS: LEVOTHYROXINE 125MCG TABLET (0.125MG) PO SCH (12:48)
[2023-09-25] MEDS: ASPIRIN 81MG ENTERIC TABLET PO SCH (12:48)
[2023-09-25] MEDS: ROSUVASTATIN 10 MG TAB (CRESTOR) PO SCH (20:07)
[2023-09-25] MEDS: SERTRALINE HCL 50 MG TAB PO SCH (20:08)
[2023-09-25] MEDS: allopurinoL 300 MG TAB PO SCH (20:09)
[2023-09-25] MEDS: ALPRAZolam 0.25 MG TAB PO ONE (22:23)
[2023-09-26] VITALS (10 sets, daily range): BP systolic 126–171; BP diastolic 56–74; TEMP 97.1–98.5; O2SAT 94–99
[2023-09-26] MEDS: LORazepam 2 MG/ML 1ML VIAL IV ONE (01:41)
[2023-09-26 05:56] LABS: BASO % 0.7 % (0.0-1.0); EOS # 0.2 10^3/uL (0.0-0.5); HEMATOCRIT 28.1 % (36.0-47.0); LYMPH # 1.1 10^3/uL (1.5-5.0); LYMPH % 25.9 % (24.0-44.0); MEAN CORPUSCULAR HEMOGLOBIN 30.9 pg (27.0-33.0); MEAN CORPUSCULAR VOLUME 96.6 fl (80.0-96.0); MONO # 0.4 10^3/uL (0.0-0.8); MONO % 8.5 % (2.0-8.0); NEUTROPHILS # 2.6 10^3/uL (1.5-8.5); NEUTROPHILS % 60.9 % (36.0-66.0); PLATELET COUNT, AUTOMATED 123 10^3/uL (150-450); RED BLOOD COUNT 2.91 10^6/uL (4.00-5.40); WHITE BLOOD COUNT 4.2 10^3/uL (4.0-10.0)
[2023-09-26 06:16] LABS: CALCIUM LEVEL 8.1 MG/DL (8.3-10.6); CREATININE FOR GFR 2.18 MG/DL (0.55-1.30); GLOMERULAR FILTRATION RATE 23.2 (>39); MAGNESIUM LEVEL 2.1 MG/DL (1.8-2.4); POTASSIUM SERUM 3.9 MMOL/L (3.5-5.1)
[2023-09-26] MEDS: SERTRALINE HCL 25 MG TABLET PO SCH (09:05)
[2023-09-26] MEDS: CETIRIZINE (ZyrTEC) 10 MG TAB PO SCH (09:05)
[2023-09-26] MEDS ORDERED: DOXAZOSIN MESYLATE 4 MG TAB PO SCH (21:00)
[2023-09-27 04:36] VITALS: BP 125/44; TEMP 97.7; O2SAT 99
[2023-09-27 05:39] VITALS: BP_SYST 124; BP_SYST 136; BP_SYST 143; BP_DIAS 63; BP_DIAS 72; BP_DIAS 76
[2023-09-27 06:54] LABS: BASO % 0.8 % (0.0-1.0); EOS # 0.2 10^3/uL (0.0-0.5); EOS % 5.2 % (0.0-3.0); HEMATOCRIT 26.8 % (36.0-47.0); HEMOGLOBIN 8.7 g/dl (12.0-15.5); LYMPH # 0.8 10^3/uL (1.5-5.0); LYMPH % 20.1 % (24.0-44.0); MEAN CORPUSCULAR HEMOGLOBIN 31.5 pg (27.0-33.0); MEAN CORPUSCULAR HGB CONC 32.5 g/dl (32.0-36.5); MEAN CORPUSCULAR VOLUME 97.1 fl (80.0-96.0); MONO # 0.4 10^3/uL (0.0-0.8); MONO % 9.4 % (2.0-8.0); NEUTROPHILS # 2.5 10^3/uL (1.5-8.5); NEUTROPHILS % 64.2 % (36.0-66.0); PLATELET COUNT, AUTOMATED 113 10^3/uL (150-450); RED BLOOD COUNT 2.76 10^6/uL (4.00-5.40); WHITE BLOOD COUNT 3.8 10^3/uL (4.0-10.0)
[2023-09-27 07:19] LABS: CALCIUM LEVEL 7.8 MG/DL (8.3-10.6); CREATININE FOR GFR 2.32 MG/DL (0.55-1.30); GLOMERULAR FILTRATION RATE 21.6 (>39); POTASSIUM SERUM 4.5 MMOL/L (3.5-5.1)
[2023-09-27] MEDS: LEVEMIR (INSULIN DETEMIR) 1 UNITS/0.01ML SC SCH (08:44)
[2023-09-27] MEDS: NS 1,000 ML IV SCH (11:18)
[2023-09-27 12:13] LABS: PERCENT SATURATION 28.3 % (13.2-45.0)
[2023-09-27 12:30] VITALS: BP 169/66; TEMP 97.7; O2SAT 99
[2023-09-27] MEDS: CARVedilol 12.5 MG TAB PO ONE (12:41)
[2023-09-27 17:41] LABS: FERRITIN 57.6 NG/ML (7.3-270.7)
[2023-09-27 20:01] VITALS: BP 168/66; TEMP 97.9; O2SAT 94
[2023-09-27] MEDS: CARVedilol 12.5 MG TAB PO SCH (20:03)
[2023-09-28 04:41] VITALS: BP 148/65; TEMP 98.2; O2SAT 93
[2023-09-28 07:16] LABS: BASO % 0.8 % (0.0-1.0); EOS # 0.2 10^3/uL (0.0-0.5); EOS % 4.4 % (0.0-3.0); HEMATOCRIT 26.6 % (36.0-47.0); HEMOGLOBIN 8.8 g/dl (12.0-15.5); LYMPH # 0.7 10^3/uL (1.5-5.0); LYMPH % 18.4 % (24.0-44.0); MEAN CORPUSCULAR HEMOGLOBIN 31.8 pg (27.0-33.0); MEAN CORPUSCULAR HGB CONC 33.1 g/dl (32.0-36.5); MONO # 0.3 10^3/uL (0.0-0.8); MONO % 8.5 % (2.0-8.0); NEUTROPHILS # 2.6 10^3/uL (1.5-8.5); NEUTROPHILS % 67.9 % (36.0-66.0); PLATELET COUNT, AUTOMATED 114 10^3/uL (150-450); RED BLOOD COUNT 2.77 10^6/uL (4.00-5.40); WHITE BLOOD COUNT 3.9 10^3/uL (4.0-10.0)
[2023-09-28 07:43] LABS: CREATININE FOR GFR 2.29 MG/DL (0.55-1.30); GLOMERULAR FILTRATION RATE 21.9 (>39); POTASSIUM SERUM 4.7 MMOL/L (3.5-5.1)
[2023-09-28 09:18] VITALS: BP 135/55
[2023-09-28] MEDS: ACETAMINOPHEN TAB 650MG DOSE (2X325MG) PO SCH (12:09)
[2023-09-28] MEDS: DARBEPOETIN 100MCG/0.5ML *NON-DIALYSIS* SYRINGE SC ONE (12:10)
[2023-09-28] MEDS ORDERED: TOUJ1.2I INJ (12:19)
[2023-09-28] MEDS ORDERED: AMLO1TAB25 PO (12:19)
[2023-09-28] MEDS ORDERED: HYDR100T PO (12:19)
[2023-09-28] MEDS ORDERED: INSUH10VL SC (12:19)
[2023-09-28] MEDS ORDERED: CARV25TA PO (12:19)
[2023-09-28] MEDS ORDERED: **hydrALAZINE** 50 MG TAB PO SCH (16:00)
[2023-09-28] MEDS ORDERED: FERROUS SULFATE 325MG TAB PO SCH (21:00)
== END 2023-09-28 14:35 | DRG 312 ==
LOC: M ED 12:03 → EDBD 12:03 → M ED INP 18:12 → M PCU 22:05 → M MS5PR 09-26 15:49
PROVIDERS: ADMIT Internal Medicine; ATTEND Internal Medicine
DX: I95.1 Orthostatic hypotension (principal); N17.9 Acute kidney failure, unspecified; I50.32 Chronic diastolic (congestive) heart failure; I13.0 Hypertensive heart and chronic kidney disease with heart failure and stage 1 through stage 4 chronic kidney disease, or unspecified chronic kidney disease; I16.1 Hypertensive emergency; I65.23 Occlusion and stenosis of bilateral carotid arteries; I16.0 Hypertensive urgency; N18.30 Chronic kidney disease, stage 3 unspecified; D64.9 Anemia, unspecified; Z79.4 Long term (current) use of insulin; I35.0 Nonrheumatic aortic (valve) stenosis; E78.00 Pure hypercholesterolemia, unspecified; E03.9 Hypothyroidism, unspecified; K57.30 Diverticulosis of large intestine without perforation or abscess without bleeding; G47.33 Obstructive sleep apnea (adult) (pediatric); F41.9 Anxiety disorder, unspecified; F32.A Depression, unspecified; G47.00 Insomnia, unspecified; E55.9 Vitamin D deficiency, unspecified; Z79.899 Other long term (current) drug therapy; Z79.82 Long term (current) use of aspirin; Z88.5 Allergy status to narcotic agent; Z88.8 Allergy status to other drugs, medicaments and biological substances; J45.909 Unspecified asthma, uncomplicated; M10.9 Gout, unspecified

== ENCOUNTER 2023-09-28 12:40 | Inpatient (IN) | payer MEDICARE ==
[~2023-09-28] VITALS: Ht 147.3 cm; Wt 81.4 kg
[~2023-09-28 12:40] MED LIST changes: +ALLO300T2 PO; +CETI-24 PO; +LEVO1TAB38 PO; +TELM1TAB37 PO
[2023-09-28 12:50] VITALS: BP 169/71; TEMP 97.6; O2SAT 98
[2023-09-28] MEDS ORDERED: GLUCAGON INJ 1MG VIAL SC PRN (14:15)
[2023-09-28] MEDS ORDERED: GLUCOSE 4 GM CHEW PO PRN (14:15)
[2023-09-28] MEDS ORDERED: DEXTROSE 50% 50ML SYRINGE IV PRN (14:15)
[2023-09-28] MEDS ORDERED: PILL CUTTER 1 EACH XX PRN (16:00)
[2023-09-28] MEDS: INSULIN LISPRO (NovoLOG) PER UNIT SC SCH ×3 (17:23→20:18)
[2023-09-28] MEDS: **hydrALAZINE** 50 MG TAB PO SCH (17:25)
[2023-09-28 19:46] VITALS: BP 150/64; TEMP 97.7; O2SAT 100
[2023-09-28] MEDS: RAMELTEON 8 MG TAB (ROZEREM) PO PRN (21:00)
[2023-09-28] MEDS: ROSUVASTATIN 10 MG TAB (CRESTOR) PO SCH (21:00)
[2023-09-28] MEDS: allopurinoL 300 MG TAB PO SCH (21:01)
[2023-09-28] MEDS: ACETAMINOPHEN TAB 650MG DOSE (2X325MG) PO SCH (21:01)
[2023-09-28] MEDS: CARVedilol 12.5 MG TAB PO SCH (21:02)
[2023-09-28] MEDS: SERTRALINE HCL 50 MG TAB PO SCH (21:02)
[2023-09-28] MEDS: HEPARIN SOD (PORCINE) 5000UNITS/ML 1ML VIAL/SYRINGE SQ SCH (21:02)
[2023-09-29] MEDS: LEVOTHYROXINE 125MCG TABLET (0.125MG) PO SCH (05:50)
[2023-09-29 06:07] VITALS: BP 179/77; TEMP 97.3; O2SAT 93
[2023-09-29 06:50] VITALS: BP 178/76
[2023-09-29 08:07] LABS: BASO % 1.2 % (0.0-1.0); EOS # 0.2 10^3/uL (0.0-0.5); EOS % 5.2 % (0.0-3.0); HEMATOCRIT 30.2 % (36.0-47.0); LYMPH # 0.5 10^3/uL (1.5-5.0); LYMPH % 15.3 % (24.0-44.0); MEAN CORPUSCULAR HEMOGLOBIN 31.7 pg (27.0-33.0); MEAN CORPUSCULAR HGB CONC 33.1 g/dl (32.0-36.5); MEAN CORPUSCULAR VOLUME 95.9 fl (80.0-96.0); MONO # 0.3 10^3/uL (0.0-0.8); MONO % 8.4 % (2.0-8.0); NEUTROPHILS # 2.4 10^3/uL (1.5-8.5); NEUTROPHILS % 69.6 % (36.0-66.0); PLATELET COUNT, AUTOMATED 119 10^3/uL (150-450); RED BLOOD COUNT 3.15 10^6/uL (4.00-5.40); WHITE BLOOD COUNT 3.5 10^3/uL (4.0-10.0)
[2023-09-29 08:33] LABS: ALBUMIN 3.3 G/DL (3.2-5.2); BLOOD UREA NITROGEN 86 MG/DL (9-23); CALCIUM LEVEL 8.5 MG/DL (8.3-10.6); CARBON DIOXIDE LEVEL 19 MMOL/L (20-31); CHLORIDE LEVEL 110 MMOL/L (98-107); CREATININE FOR GFR 2.07 MG/DL (0.55-1.30); GLOMERULAR FILTRATION RATE 24.6 (>39); GLUCOSE, FASTING 170 MG/DL (74-106); PHOSPHORUS LEVEL 4.9 MG/DL (2.4-5.1); POTASSIUM SERUM 5.5 MMOL/L (3.5-5.1); SODIUM LEVEL 137 MMOL/L (136-145)
[2023-09-29 08:35] LABS: TOTAL 25(OH) VITAMIN D 35.2 NG/ML (20.0-100.0); VITAMIN B12 LEVEL 911 PG/ML (211-911)
[2023-09-29 08:41] LABS: FOLATE > 24.00 NG/ML (>5.4)
[2023-09-29 09:00] VITALS: BP 141/69
[2023-09-29] MEDS: ASPIRIN 81MG ENTERIC TABLET PO SCH (09:08)
[2023-09-29] MEDS: SERTRALINE HCL 25 MG TABLET PO SCH (09:08)
[2023-09-29] MEDS: CETIRIZINE (ZyrTEC) 10 MG TAB PO SCH (09:08)
[2023-09-29] MEDS: VITAMIN D 1,000 INTERNATIONAL UNITS TABLET PO SCH (09:08)
[2023-09-29] MEDS: LEVEMIR (INSULIN DETEMIR) 1 UNITS/0.01ML SC SCH (09:11)
[2023-09-29] MEDS: SODIUM BICARBONATE 325 MG TAB PO SCH ×2 (10:17→20:38)
[2023-09-29] MEDS: PATIROMER SORBITEX CALCIUM 8.4 GM POWDER PACKET (VELTASSA) PO ONE (12:26)
[2023-09-29 14:00] VITALS: BP 138/74; TEMP 98.1; O2SAT 96
[2023-09-29 19:31] VITALS: BP 190/60; TEMP 97.1; O2SAT 98
[2023-09-29] MEDS: **hydrALAZINE HCL** 25 MG TAB PO PRN (19:47)
[2023-09-29 21:10] VITALS: BP 180/78
[2023-09-29] MEDS: ANALGESIC BALM CRM 3OZ TOP PRN (23:35)
[2023-09-30] MEDS ORDERED: MOM 30ML SUSPENSION UDC PO PRN (01:40)
[2023-09-30] MEDS ORDERED: BISACODYL 10MG SUPP PR PRN (01:40)
[2023-09-30 04:22] VITALS: BP 162/68; TEMP 98.6; O2SAT 98
[2023-09-30] MEDS: MIRALAX *UNIT DOSE* 17GM PACKET PO SCH (08:38)
[2023-09-30] MEDS: DOCUSATE SODIUM 100MG CAPSULE PO PRN (08:38)
[2023-09-30] MEDS: **hydrALAZINE HCL** 25 MG TAB PO SCH (08:41)
[2023-09-30] MEDS ORDERED: FERROUS SULFATE 325MG TAB PO SCH (09:00)
[2023-09-30 09:48] LABS: ALBUMIN 2.8 G/DL (3.2-5.2); CALCIUM LEVEL 8.4 MG/DL (8.3-10.6); CREATININE FOR GFR 2.02 MG/DL (0.55-1.30); GLOMERULAR FILTRATION RATE 25.3 (>39); PHOSPHORUS LEVEL 4.8 MG/DL (2.4-5.1); POTASSIUM SERUM 4.9 MMOL/L (3.5-5.1)
[2023-09-30] MEDS: FUROSEMIDE 20 MG TAB PO SCH (12:19)
[2023-09-30 14:00] VITALS: BP 158/70; TEMP 98; O2SAT 97
[2023-09-30 19:40] VITALS: BP 187/74; TEMP 97.7; O2SAT 98
[2023-09-30 20:00] VITALS: BP 184/76
[2023-09-30 21:00] VITALS: BP 172/74
[2023-09-30 21:30] VITALS: BP 144/70
[2023-10-01 04:23] VITALS: BP 185/79; TEMP 96.9; O2SAT 97
[2023-10-01 05:00] VITALS: BP 182/78
[2023-10-01 05:30] VITALS: BP 144/66
[2023-10-01 06:57] LABS: HEMOGLOBIN 8.9 g/dl (12.0-15.5); MEAN CORPUSCULAR HEMOGLOBIN 31.6 pg (27.0-33.0); MEAN CORPUSCULAR VOLUME 95.7 fl (80.0-96.0); PLATELET COUNT, AUTOMATED 117 10^3/uL (150-450); RED BLOOD COUNT 2.82 10^6/uL (4.00-5.40); WHITE BLOOD COUNT 3.9 10^3/uL (4.0-10.0)
[2023-10-01 07:23] LABS: ALBUMIN 3.1 G/DL (3.2-5.2); CALCIUM LEVEL 8.6 MG/DL (8.3-10.6); CREATININE FOR GFR 1.87 MG/DL (0.55-1.30); GLOMERULAR FILTRATION RATE 27.6 (>39); PHOSPHORUS LEVEL 4.4 MG/DL (2.4-5.1)
[2023-10-01 14:00] VITALS: BP 136/65; TEMP 97.6; O2SAT 99
[2023-10-01] MEDS: DICLOFENAC EPOLAMINE 1.3% PATCH TOP SCH (17:39)
[2023-10-01 19:42] VITALS: BP 156/90; TEMP 96.6; O2SAT 97
[2023-10-02 04:00] VITALS: BP 158/58; TEMP 97; O2SAT 99
[2023-10-02 07:37] LABS: ALBUMIN 3.3 G/DL (3.2-5.2); CALCIUM LEVEL 8.9 MG/DL (8.3-10.6); CREATININE FOR GFR 1.7 MG/DL (0.55-1.30); GLOMERULAR FILTRATION RATE 30.9 (>39); PHOSPHORUS LEVEL 4.4 MG/DL (2.4-5.1); POTASSIUM SERUM 4.8 MMOL/L (3.5-5.1)
[2023-10-02] MEDS: FUROSEMIDE 20 MG TAB PO SCH (08:17)
[2023-10-02 15:00] VITALS: BP 145/60; TEMP 98.1; O2SAT 100
[2023-10-02 19:37] VITALS: BP 180/74; TEMP 97.6; O2SAT 97
[2023-10-03 00:05] VITALS: BP 153/67
[2023-10-03 06:00] VITALS: TEMP 97.4; O2SAT 96
[2023-10-03 06:20] VITALS: BP 154/70
[2023-10-03 07:37] LABS: CALCIUM LEVEL 8.5 MG/DL (8.3-10.6); CREATININE FOR GFR 1.64 MG/DL (0.55-1.30); GLOMERULAR FILTRATION RATE 32.2 (>39); PHOSPHORUS LEVEL 4.1 MG/DL (2.4-5.1); POTASSIUM SERUM 4.7 MMOL/L (3.5-5.1)
[2023-10-03 12:00] VITALS: BP 168/70; TEMP 98.2; O2SAT 96
[2023-10-03 20:00] VITALS: BP 158/60; TEMP 97.8; O2SAT 98
[2023-10-04 04:00] VITALS: BP 130/50; TEMP 97; O2SAT 95
[2023-10-04 07:41] VITALS: BP 148/62; TEMP 97.9; O2SAT 97
[2023-10-04 09:46] LABS: HEMATOCRIT 27.3 % (36.0-47.0); HEMOGLOBIN 8.9 g/dl (12.0-15.5); MEAN CORPUSCULAR HEMOGLOBIN 31.8 pg (27.0-33.0); MEAN CORPUSCULAR HGB CONC 32.6 g/dl (32.0-36.5); MEAN CORPUSCULAR VOLUME 97.5 fl (80.0-96.0); PLATELET COUNT, AUTOMATED 171 10^3/uL (150-450); WHITE BLOOD COUNT 4.1 10^3/uL (4.0-10.0)
[2023-10-04 09:49] VITALS: BP 148/62
[2023-10-04 10:10] LABS: ALBUMIN 3.3 G/DL (3.2-5.2); CALCIUM LEVEL 8.5 MG/DL (8.3-10.6); CREATININE FOR GFR 1.65 MG/DL (0.55-1.30); GLOMERULAR FILTRATION RATE 31.9 (>39); POTASSIUM SERUM 5.1 MMOL/L (3.5-5.1)
[2023-10-04] MEDS ORDERED: SODI325T9 PO (10:32)
[2023-10-04] MEDS ORDERED: MINO2.5T PO (10:32)
[2023-10-04] MEDS ORDERED: VITA100093 PO (10:32)
[2023-10-04] MEDS ORDERED: FURO20TA2 PO (10:32)
[2023-10-04] MEDS ORDERED: CARV12.5 PO (10:32)
== END 2023-10-04 12:30 | disposition home or self-care (01) | DRG 312 ==
LOC: PREOBSVTOIN 14:01 → M PM&R 14:50
PROVIDERS: ADMIT Student in an Organized Health Care Education/Training Program; ATTEND Student in an Organized Health Care Education/Training Program
DX: I95.1 Orthostatic hypotension (principal); I50.32 Chronic diastolic (congestive) heart failure; I13.0 Hypertensive heart and chronic kidney disease with heart failure and stage 1 through stage 4 chronic kidney disease, or unspecified chronic kidney disease; E87.20 Acidosis, unspecified; N17.9 Acute kidney failure, unspecified; R29.6 Repeated falls; Z74.1 Need for assistance with personal care; Z74.09 Other reduced mobility; N18.30 Chronic kidney disease, stage 3 unspecified; E11.22 Type 2 diabetes mellitus with diabetic chronic kidney disease; E03.9 Hypothyroidism, unspecified; E78.00 Pure hypercholesterolemia, unspecified; G47.33 Obstructive sleep apnea (adult) (pediatric); D63.8 Anemia in other chronic diseases classified elsewhere; F32.A Depression, unspecified; F41.9 Anxiety disorder, unspecified; G47.00 Insomnia, unspecified; M10.9 Gout, unspecified; J45.909 Unspecified asthma, uncomplicated; M19.90 Unspecified osteoarthritis, unspecified site; E66.01 Morbid (severe) obesity due to excess calories; Z90.49 Acquired absence of other specified parts of digestive tract; Z90.79 Acquired absence of other genital organ(s); Z79.82 Long term (current) use of aspirin; Z79.4 Long term (current) use of insulin; Z79.890 Hormone replacement therapy; Z79.899 Other long term (current) drug therapy; Z88.5 Allergy status to narcotic agent; Z88.8 Allergy status to other drugs, medicaments and biological substances; E87.5 Hyperkalemia; K59.00 Constipation, unspecified

== ENCOUNTER 2023-10-17 09:01 | Emergency (ER) | payer MEDICARE ==
[~2023-10-17] VITALS: Ht 147.3 cm; Wt 77.3 kg
[~2023-10-17 09:01] MED LIST changes: +CARV12.5 PO; +FURO20TA2 PO; +MINO2.5T PO; +SODI325T9 PO; +VITA100093 PO
[2023-10-17] MEDS: ASPIRIN 81MG CHEW TABLET PO ONE (09:20)
[2023-10-17] MEDS ORDERED: DILT240C41 PO (09:35)
[2023-10-17] MEDS: CARVedilol 12.5 MG TAB PO ONE (09:53)
[2023-10-17] MEDS: FUROSEMIDE 20 MG TAB PO ONE (09:53)
[2023-10-17 10:09] LABS: BASO % 0.9 % (0.0-1.0); EOS # 0.1 10^3/uL (0.0-0.5); EOS % 3.4 % (0.0-3.0); HEMATOCRIT 29.3 % (36.0-47.0); HEMOGLOBIN 9.3 g/dl (12.0-15.5); LYMPH # 0.7 10^3/uL (1.5-5.0); LYMPH % 18.5 % (24.0-44.0); MEAN CORPUSCULAR HGB CONC 31.7 g/dl (32.0-36.5); MEAN CORPUSCULAR VOLUME 97.7 fl (80.0-96.0); MONO # 0.4 10^3/uL (0.0-0.8); MONO % 10.8 % (2.0-8.0); NEUTROPHILS # 2.3 10^3/uL (1.5-8.5); NEUTROPHILS % 66.1 % (36.0-66.0); PLATELET COUNT, AUTOMATED 157 10^3/uL (150-450); WHITE BLOOD COUNT 3.5 10^3/uL (4.0-10.0)
[2023-10-17 10:31] LABS: LIPASE 38 U/L (12-53)
[2023-10-17 10:34] LABS: ALBUMIN 2.9 G/DL (3.2-5.2); ALKALINE PHOSPHATASE 56 U/L (46-116); ALT/SGPT 19 U/L (7.0-40); AST/SGOT 20 U/L (<34); BILIRUBIN,DIRECT 0.1 MG/DL (<0.4); BILIRUBIN,TOTAL 0.4 MG/DL (0.3-1.2); BLOOD UREA NITROGEN 55 MG/DL (9-23); CALCIUM LEVEL 7.5 MG/DL (8.3-10.6); CARBON DIOXIDE LEVEL 26 MMOL/L (20-31); CHLORIDE LEVEL 107 MMOL/L (98-107); CREATININE FOR GFR 1.62 MG/DL (0.55-1.30); GLOMERULAR FILTRATION RATE 32.6 (>39); GLUCOSE, FASTING 90 MG/DL (74-106); POTASSIUM SERUM 3.5 MMOL/L (3.5-5.1); SODIUM LEVEL 143 MMOL/L (136-145); TOTAL PROTEIN 5.3 G/DL (5.7-8.2)
[2023-10-17 10:38] LABS: THYROID STIMULATING HORMONE 3.075 uIU/ML (0.55-4.78)
[2023-10-17 10:40] LABS: CK-MB VALUE MASS < 1.0 NG/ML (<3.6); CPK CREATINE PHOSPHOKINASE 73 U/L (34-145); MB/CK RELATIVE INDEX 1.36 (< OR =4)
[2023-10-17] MEDS: METOCLOPRAMIDE INJ 10MG/2ML VIAL IV ONE (10:49)
[2023-10-17 11:36] LABS: CK-MB VALUE MASS < 1.0 NG/ML (<3.6)
[2023-10-17 11:37] LABS: CPK CREATINE PHOSPHOKINASE 78 U/L (34-145); MB/CK RELATIVE INDEX 1.28 (< OR =4)
[2023-10-17] MEDS ORDERED: TOUJ1.2I SC (13:13)
[2023-10-17] MEDS ORDERED: INSU100I24 SC (13:13)
[2023-10-17] MEDS ORDERED: VITA100093 PO (13:13)
[2023-10-17] MEDS ORDERED: MINO2.5T PO (13:13)
[2023-10-17] MEDS ORDERED: CARV12.5 PO (13:13)
[2023-10-17] MEDS ORDERED: ACET650T61 PO (13:13)
[2023-10-17] MEDS ORDERED: LEVO137T2 PO (13:13)
[2023-10-17] MEDS ORDERED: ISOVUE-370 76% 100ML VIAL As Ordered ONE (13:15)
[2023-10-17] MEDS ORDERED: LEVAINH INH (13:16)
[2023-10-17] MEDS ORDERED: MED REC IN PROGRESS XX SCH (13:35)
[2023-10-17] MEDS: NITROGLYCERIN 0.4MG SUBL TABLET SL PRN (13:46)
[2023-10-17 13:48] LABS: CK-MB VALUE MASS < 1.0 NG/ML (<3.6)
[2023-10-17 13:59] LABS: CPK CREATINE PHOSPHOKINASE 77 U/L (34-145); MB/CK RELATIVE INDEX 1.29 (< OR =4)
[2023-10-17] MEDS ORDERED: HOME MED LIST COMPLETE! XX SCH (14:30)
[2023-10-17 14:32] VITALS: BP 191/84
[2023-10-17] MEDS: dilTIAZem 120MG **CD** CAPSULE PO ONE (14:32)
[2023-10-17] MEDS: ACETAMINOPHEN 500 MG TAB PO ONE (14:41)
[2023-10-17 17:42] VITALS: BP 150/62; TEMP 98.2; O2SAT 94
== END 2023-10-17 18:04 | disposition home or self-care (01) ==
LOC: M ED 09:01
DX: R07.9 Chest pain, unspecified (principal); I12.9 Hypertensive chronic kidney disease with stage 1 through stage 4 chronic kidney disease, or unspecified chronic kidney disease; I45.10 Unspecified right bundle-branch block; E11.9 Type 2 diabetes mellitus without complications; N18.9 Chronic kidney disease, unspecified; G47.33 Obstructive sleep apnea (adult) (pediatric); E03.9 Hypothyroidism, unspecified; Z90.89 Acquired absence of other organs; Z86.79 Personal history of other diseases of the circulatory system; Z88.5 Allergy status to narcotic agent; Z88.8 Allergy status to other drugs, medicaments and biological substances; Z79.82 Long term (current) use of aspirin; Z79.4 Long term (current) use of insulin; Z79.899 Other long term (current) drug therapy
CPT/HCPCS: 71045; 80048; 80076; 82550; 82553; 83690; 83880; 84443; 84484; 85025; 93005; 93041; 94760; 96374; 99285; J2765

== ENCOUNTER → 2023-11-13 | Outpatient (CLI) | payer MEDICARE ==
[~2023-11-13] MED LIST changes: +ACET650T61 PO; +DILT240C41 PO; +INSU100I24 SC; +LEVAINH INH; +LEVO137T2 PO; +SERT-141 PO; +TORS20TA2 PO; +TOUJ1.2I SC
== END ==
LOC: M PLAIMG 11:21
PROVIDERS: ATTEND Family Medicine
DX: K59.00 Constipation, unspecified (principal); M54.50 Low back pain, unspecified

== ENCOUNTER 2023-11-14 16:00 | Inpatient (IN) | payer MEDICARE ==
[~2023-11-14] VITALS: Ht 147.3 cm; Wt 71.0 kg
[~2023-11-14 16:00] MED LIST changes: -SERT-141 PO; -TORS20TA2 PO
[2023-11-14 18:09] LABS: VENOUS BASE EXCESS -0.3 (-2.0-2.0); VENOUS HCO3 23.9 MMOL/L (23.0-27.0); VENOUS O2 SATURATION 98.4 % (60.0-80.0); VENOUS PARTIAL PRESSURE CO2 37.5 mmHg (38.0-50.0); VENOUS PARTIAL PRESSURE O2 134.2 mmHg (30.0-50.0); VENOUS PH 7.423 UNITS (7.330-7.430); VENOUS STANDARD HCO3 24.3 MMOL/L; VENOUS TOTAL CO2 25.1 MMOL/L (24.0-28.0)
[2023-11-14 18:13] LABS: BASO % 0.4 % (0.0-1.0); EOS # 0.2 10^3/uL (0.0-0.5); EOS % 1.4 % (0.0-3.0); HEMATOCRIT 27.8 % (36.0-47.0); HEMOGLOBIN 8.8 g/dl (12.0-15.5); LYMPH # 0.4 10^3/uL (1.5-5.0); LYMPH % 3.9 % (24.0-44.0); MEAN CORPUSCULAR HGB CONC 31.7 g/dl (32.0-36.5); MEAN CORPUSCULAR VOLUME 88.5 fl (80.0-96.0); MONO # 0.5 10^3/uL (0.0-0.8); MONO % 4.6 % (2.0-8.0); NEUTROPHILS # 9.5 10^3/uL (1.5-8.5); NEUTROPHILS % 88.8 % (36.0-66.0); PLATELET COUNT, AUTOMATED 335 10^3/uL (150-450); RED BLOOD COUNT 3.14 10^6/uL (4.00-5.40); WHITE BLOOD COUNT 10.7 10^3/uL (4.0-10.0)
[2023-11-14 18:40] LABS: CK-MB VALUE MASS 2.7 NG/ML (<3.6)
[2023-11-14 18:42] LABS: MB/CK RELATIVE INDEX 1.16 (< OR =4)
[2023-11-14 18:43] LABS: ALBUMIN 2.8 G/DL (3.2-5.2); BILIRUBIN,DIRECT 0.2 MG/DL (<0.4); BILIRUBIN,TOTAL 0.4 MG/DL (0.3-1.2); CALCIUM LEVEL 7.9 MG/DL (8.3-10.6); CREATININE FOR GFR 2.99 MG/DL (0.55-1.30); GLOMERULAR FILTRATION RATE 16.1 (>39); TOTAL PROTEIN 6.3 G/DL (5.7-8.2)
[2023-11-14 18:45] LABS: THYROID STIMULATING HORMONE 2.907 uIU/ML (0.55-4.78)
[2023-11-14] MEDS: POTASSIUM CHLORIDE 10MEQ SR TABLET PO ONE (20:15)
[2023-11-14] MEDS: KCL 10MEQ/100ML SWI (KRUN) 10 MEQ in IV 1 EA IV ONE (20:15)
[2023-11-14 20:28] LABS: THYROXINE (T4) 3.8 UG/DL (4.5-10.9)
[2023-11-14 20:31] LABS: MAGNESIUM LEVEL 2.7 MG/DL (1.8-2.4)
[2023-11-14 21:07] LABS: CK-MB VALUE MASS 2.6 NG/ML (<3.6)
[2023-11-14 21:09] LABS: MB/CK RELATIVE INDEX 1.25 (< OR =4)
[2023-11-14] MEDS ORDERED: SERT-141 PO (23:30)
[2023-11-14] MEDS ORDERED: TORS20TA2 PO (23:30)
[2023-11-14] MEDS ORDERED: HOME MED LIST COMPLETE! XX SCH (23:35)
[2023-11-15] MEDS ORDERED: DOCUSATE SODIUM 100MG CAPSULE PO PRN (00:25)
[2023-11-15] MEDS ORDERED: DEXTROSE 50% 50ML SYRINGE IV PRN (00:30)
[2023-11-15] MEDS ORDERED: GLUCAGON INJ 1MG VIAL SC PRN (00:30)
[2023-11-15] MEDS: RAMELTEON 8 MG TAB (ROZEREM) PO SCH (00:48)
[2023-11-15] MEDS ORDERED: FUROSEMIDE 100MG/10ML VIAL IV SCH ×2 (06:00→09:00)
[2023-11-15] MEDS: AZITHROMYCIN 250MG TABLET PO SCH (06:08)
[2023-11-15] MEDS: POTASSIUM CHLORIDE 10MEQ SR TABLET PO ONE (06:08)
[2023-11-15] MEDS: cefTRIAXone SOD 1 GM in D5W MINI-BAG PLUS 50 ML IV SCH (06:09)
[2023-11-15] MEDS: LEVOTHYROXINE 137MCG TABLET (0.137MG) PO SCH (06:10)
[2023-11-15] MEDS: INSULIN LISPRO (NovoLOG) PER UNIT SC SCH ×2 (07:30→21:00)
[2023-11-15 07:36] LABS: HEMATOCRIT 25.5 % (36.0-47.0); HEMOGLOBIN 8.1 g/dl (12.0-15.5); MEAN CORPUSCULAR HEMOGLOBIN 28.2 pg (27.0-33.0); MEAN CORPUSCULAR HGB CONC 31.8 g/dl (32.0-36.5); MEAN CORPUSCULAR VOLUME 88.9 fl (80.0-96.0); PLATELET COUNT, AUTOMATED 297 10^3/uL (150-450); RED BLOOD COUNT 2.87 10^6/uL (4.00-5.40); WHITE BLOOD COUNT 7.2 10^3/uL (4.0-10.0)
[2023-11-15 08:21] LABS: INR 1.27; PARTIAL THROMBOPLASTIN TIME 39.1 SECONDS (24.8-34.2); PROTHROMBIN TIME 15.5 SECONDS (12.5-14.5)
[2023-11-15] MEDS ORDERED: allopurinoL 300 MG TAB PO SCH (09:00)
[2023-11-15] MEDS ORDERED: ENOXAPARIN 30MG/0.3ML SYRINGE (J1650 PER 10MG) SC SCH (09:00)
[2023-11-15 09:21] LABS: ALBUMIN 2.6 G/DL (3.2-5.2); BILIRUBIN,TOTAL 0.3 MG/DL (0.3-1.2); CREATININE FOR GFR 2.73 MG/DL (0.55-1.30); GLOMERULAR FILTRATION RATE 17.9 (>39); MAGNESIUM LEVEL 2.6 MG/DL (1.8-2.4); POTASSIUM SERUM 3.5 MMOL/L (3.5-5.1)
[2023-11-15 09:45] LABS: PROCALCITONIN 0.19 ng/ml
[2023-11-15 09:50] LABS: TOTAL PROTEIN 5.7 G/DL (5.7-8.2)
[2023-11-15] MEDS: ONDANSETRON 4MG 2ML VIAL IV PRN (10:43)
[2023-11-15] MEDS: FUROSEMIDE 100MG/10ML VIAL IV SCH (11:52)
[2023-11-15] MEDS: ASPIRIN 81MG ENTERIC TABLET PO SCH (11:53)
[2023-11-15] MEDS: HEPARIN SOD (PORCINE) 5000UNITS/ML 1ML VIAL/SYRINGE SQ SCH (11:53)
[2023-11-15] MEDS: SERTRALINE HCL 50 MG TAB PO SCH (11:53)
[2023-11-15] MEDS: SPIRONOLACTONE 50 MG TAB PO SCH (11:53)
[2023-11-15] MEDS: CETIRIZINE (ZyrTEC) 10 MG TAB PO SCH (11:54)
[2023-11-15] MEDS: CARVedilol 12.5 MG TAB PO SCH (11:54)
[2023-11-15 12:52] LABS: CK-MB VALUE MASS 1.7 NG/ML (<3.6)
[2023-11-15 12:54] LABS: MB/CK RELATIVE INDEX 1.06 (< OR =4)
[2023-11-15] MEDS: LEVEMIR (INSULIN DETEMIR) 1 UNITS/0.01ML SC SCH (13:46)
[2023-11-15 14:33] VITALS: BP 152/77; TEMP 97; O2SAT 96
[2023-11-15 16:00] VITALS: BP 151/62; TEMP 97; O2SAT 97
[2023-11-15 16:52] VITALS: BP 112/78; TEMP 98.2
[2023-11-15 17:22] LABS: SODIUM,RANDOM URINE 65 MMOL/L
[2023-11-15 17:29] LABS: UREA NITROGEN RANDOM URINE 354 MG/DL
[2023-11-15 20:30] VITALS: BP 151/61; TEMP 98.6; O2SAT 90
[2023-11-15] MEDS: ROSUVASTATIN 10 MG TAB (CRESTOR) PO SCH (21:27)
[2023-11-15 23:30] VITALS: BP 148/58; TEMP 98.8; O2SAT 93
[2023-11-16] VITALS (8 sets, daily range): BP systolic 146–168; BP diastolic 56–64; TEMP 97.7–99.1; O2SAT 87–94
[2023-11-16 06:41] LABS: HEMATOCRIT 24.5 % (36.0-47.0); HEMOGLOBIN 7.5 g/dl (12.0-15.5); MEAN CORPUSCULAR HEMOGLOBIN 27.3 pg (27.0-33.0); MEAN CORPUSCULAR HGB CONC 30.6 g/dl (32.0-36.5); MEAN CORPUSCULAR VOLUME 89.1 fl (80.0-96.0); PLATELET COUNT, AUTOMATED 296 10^3/uL (150-450); RED BLOOD COUNT 2.75 10^6/uL (4.00-5.40); WHITE BLOOD COUNT 5.8 10^3/uL (4.0-10.0)
[2023-11-16 07:08] LABS: ALBUMIN 2.3 G/DL (3.2-5.2); BILIRUBIN,TOTAL 0.2 MG/DL (0.3-1.2); CALCIUM LEVEL 7.5 MG/DL (8.3-10.6); CREATININE FOR GFR 2.56 MG/DL (0.55-1.30); GLOMERULAR FILTRATION RATE 19.2 (>39); MAGNESIUM LEVEL 2.4 MG/DL (1.8-2.4); POTASSIUM SERUM 3.8 MMOL/L (3.5-5.1); TOTAL PROTEIN 5.4 G/DL (5.7-8.2)
[2023-11-16 07:12] LABS: FERRITIN 69.2 NG/ML (7.3-270.7)
[2023-11-16] MEDS: VITAMIN D 1,000 INTERNATIONAL UNITS TABLET PO SCH (08:13)
[2023-11-16] MEDS: FERROUS SULFATE 325MG TAB PO SCH (08:16)
[2023-11-16] MEDS: FERRIC CARBOXYMALTOSE INJ 750 MG, VIAL MATE ADAPTER 1 EACH in NS 250 ML IV ONE (11:27)
[2023-11-16] MEDS: CALCITRIOL 0.25 MCG CAP (S0169) PO SCH (11:30)
[2023-11-16] MEDS: INSULIN LISPRO (NovoLOG) PER UNIT SC SCH (21:56)
[2023-11-17] VITALS (15 sets, daily range): BP systolic 157–174; BP diastolic 56–75; TEMP 98.1–98.8; O2SAT 83–96
[2023-11-17 06:11] LABS: HEMATOCRIT 23.6 % (36.0-47.0); HEMOGLOBIN 7.3 g/dl (12.0-15.5); MEAN CORPUSCULAR HEMOGLOBIN 27.9 pg (27.0-33.0); MEAN CORPUSCULAR HGB CONC 30.9 g/dl (32.0-36.5); MEAN CORPUSCULAR VOLUME 90.1 fl (80.0-96.0); PLATELET COUNT, AUTOMATED 283 10^3/uL (150-450); RED BLOOD COUNT 2.62 10^6/uL (4.00-5.40)
[2023-11-17 06:35] LABS: ALBUMIN 2.4 G/DL (3.2-5.2); BILIRUBIN,TOTAL 0.2 MG/DL (0.3-1.2); CALCIUM LEVEL 7.6 MG/DL (8.3-10.6); CREATININE FOR GFR 2.29 MG/DL (0.55-1.30); GLOMERULAR FILTRATION RATE 21.9 (>39); POTASSIUM SERUM 3.7 MMOL/L (3.5-5.1); TOTAL PROTEIN 5.5 G/DL (5.7-8.2)
[2023-11-17] MEDS: INSULIN LISPRO (NovoLOG) PER UNIT SC SCH (08:29)
[2023-11-17] MEDS: LEVEMIR (INSULIN DETEMIR) 1 UNITS/0.01ML SC SCH (08:30)
[2023-11-17] MEDS: DARBEPOETIN 100MCG/0.5ML *NON-DIALYSIS* SYRINGE SC SCH (09:15)
[2023-11-18] VITALS (10 sets, daily range): BP systolic 146–186; BP diastolic 53–82; TEMP 97.9–99; O2SAT 88–92
[2023-11-18 05:54] LABS: HEMATOCRIT 27.9 % (36.0-47.0); HEMOGLOBIN 8.8 g/dl (12.0-15.5); MEAN CORPUSCULAR HGB CONC 31.5 g/dl (32.0-36.5); MEAN CORPUSCULAR VOLUME 88.9 fl (80.0-96.0); PLATELET COUNT, AUTOMATED 296 10^3/uL (150-450); RED BLOOD COUNT 3.14 10^6/uL (4.00-5.40)
[2023-11-18 06:22] LABS: ALBUMIN 2.5 G/DL (3.2-5.2); BILIRUBIN,TOTAL 0.3 MG/DL (0.3-1.2); CALCIUM LEVEL 8.4 MG/DL (8.3-10.6); CREATININE FOR GFR 2.04 MG/DL (0.55-1.30); TOTAL PROTEIN 5.8 G/DL (5.7-8.2)
[2023-11-18] MEDS: CEFDINIR 300 MG CAP (OMNICEF) PO SCH (08:04)
[2023-11-19 00:12] VITALS: BP 164/61; TEMP 98.4; O2SAT 93
[2023-11-19 03:15] LABS: HEMATOCRIT 27.6 % (36.0-47.0); HEMOGLOBIN 8.7 g/dl (12.0-15.5); MEAN CORPUSCULAR HEMOGLOBIN 27.9 pg (27.0-33.0); MEAN CORPUSCULAR HGB CONC 31.5 g/dl (32.0-36.5); MEAN CORPUSCULAR VOLUME 88.5 fl (80.0-96.0); PLATELET COUNT, AUTOMATED 305 10^3/uL (150-450); RED BLOOD COUNT 3.12 10^6/uL (4.00-5.40)
[2023-11-19 03:36] LABS: ALBUMIN 2.4 G/DL (3.2-5.2); BILIRUBIN,TOTAL 0.3 MG/DL (0.3-1.2); CREATININE FOR GFR 1.91 MG/DL (0.55-1.30); MAGNESIUM LEVEL 1.7 MG/DL (1.8-2.4); POTASSIUM SERUM 3.8 MMOL/L (3.5-5.1); TOTAL PROTEIN 5.6 G/DL (5.7-8.2)
[2023-11-19 04:00] VITALS: BP 130/60; TEMP 97.3; O2SAT 93
[2023-11-19] MEDS: MAG SULF 1GM/100ML (MAG RUN) 1 GM in IV 1 EA IV ONE (04:10)
[2023-11-19 08:00] VITALS: BP 165/63; TEMP 97.3; O2SAT 93
[2023-11-19 09:45] LABS: CLOSTRIDIUM DIFFICILE PCR NEGATIVE (NEGATIVE)
[2023-11-19 12:00] VITALS: BP 165/66; TEMP 97.9; O2SAT 96
[2023-11-19 16:00] VITALS: BP 165/62; TEMP 97.7; O2SAT 95
[2023-11-19] MEDS: TORSEMIDE 20 MG TAB PO SCH (16:27)
[2023-11-19 20:30] VITALS: BP 178/74; TEMP 98.2; O2SAT 94
[2023-11-20] VITALS (9 sets, daily range): BP systolic 138–188; BP diastolic 49–78; TEMP 97.9–99; O2SAT 85–95
[2023-11-20 06:19] LABS: HEMATOCRIT 27.9 % (36.0-47.0); HEMOGLOBIN 8.8 g/dl (12.0-15.5); MEAN CORPUSCULAR HEMOGLOBIN 28.1 pg (27.0-33.0); MEAN CORPUSCULAR HGB CONC 31.5 g/dl (32.0-36.5); MEAN CORPUSCULAR VOLUME 89.1 fl (80.0-96.0); PLATELET COUNT, AUTOMATED 268 10^3/uL (150-450); RED BLOOD COUNT 3.13 10^6/uL (4.00-5.40); WHITE BLOOD COUNT 7.7 10^3/uL (4.0-10.0)
[2023-11-20 06:39] LABS: ALBUMIN 2.3 G/DL (3.2-5.2); BILIRUBIN,TOTAL 0.3 MG/DL (0.3-1.2); CALCIUM LEVEL 7.9 MG/DL (8.3-10.6); CREATININE FOR GFR 1.93 MG/DL (0.55-1.30); GLOMERULAR FILTRATION RATE 26.7 (>39); POTASSIUM SERUM 3.6 MMOL/L (3.5-5.1); TOTAL PROTEIN 5.4 G/DL (5.7-8.2)
[2023-11-20] MEDS: ACETAMINOPHEN 650MG ER TAB (TYLENOL ARTHRITIS) PO PRN (08:12)
[2023-11-20] MEDS: dilTIAZem 120MG **CD** CAPSULE PO SCH (09:05)
[2023-11-20] MEDS: TORSEMIDE 20 MG TAB PO ONE (11:57)
[2023-11-20] MEDS: TORSEMIDE (DEMADEX) 50 MG PER 1/2 TAB PO SCH (17:14)
[2023-11-21] VITALS (7 sets, daily range): BP systolic 142–178; BP diastolic 61–74; TEMP 97.2–99; O2SAT 93–97
[2023-11-21 06:42] LABS: BASO # 0.1 10^3/uL (0.0-0.2); BASO % 0.7 % (0.0-1.0); EOS # 0.2 10^3/uL (0.0-0.5); EOS % 2.8 % (0.0-3.0); HEMATOCRIT 29.3 % (36.0-47.0); LYMPH # 0.6 10^3/uL (1.5-5.0); LYMPH % 8.1 % (24.0-44.0); MEAN CORPUSCULAR HEMOGLOBIN 27.6 pg (27.0-33.0); MEAN CORPUSCULAR HGB CONC 30.7 g/dl (32.0-36.5); MEAN CORPUSCULAR VOLUME 89.9 fl (80.0-96.0); MONO # 0.6 10^3/uL (0.0-0.8); MONO % 7.5 % (2.0-8.0); NEUTROPHILS # 5.9 10^3/uL (1.5-8.5); NEUTROPHILS % 79.1 % (36.0-66.0); PLATELET COUNT, AUTOMATED 265 10^3/uL (150-450); RED BLOOD COUNT 3.26 10^6/uL (4.00-5.40); WHITE BLOOD COUNT 7.4 10^3/uL (4.0-10.0)
[2023-11-21 06:56] LABS: CALCIUM LEVEL 8.2 MG/DL (8.3-10.6); CREATININE FOR GFR 2.21 MG/DL (0.55-1.30); GLOMERULAR FILTRATION RATE 22.8 (>39); MAGNESIUM LEVEL 1.8 MG/DL (1.8-2.4)
[2023-11-21 09:21] LABS: ABG BASE EXCESS 2.5 (-2.0-2.0); ABG HCO3 26.7 MMOL/L (22.0-26.0); ABG O2 SATURATION 86.2 % (95.0-99.0); ABG PARTIAL PRESSURE CO2 39.7 mmHg (35.0-45.0); ABG STANDARD HCO3 26.5 MMOL/L. (22.0-26.0); ABG TOTAL CO2 27.9 MMOL/L (23.0-31.0); ABG pH (ARTERIAL) 7.446 UNITS (7.350-7.450)
[2023-11-21 09:25] LABS: ABG PARTIAL PRESSURE O2 48.6 mmHg (75.0-100.0)
[2023-11-21] MEDS: FUROSEMIDE 100MG/10ML VIAL IV ONE (14:28)
[2023-11-21 20:12] LABS: URINE STREP PNEUMONIAE ANTIGEN NOT DETECTED (NOT DETECT)
[2023-11-22] VITALS (8 sets, daily range): BP systolic 147–188; BP diastolic 58–78; TEMP 98.1–99; O2SAT 92–95
[2023-11-22 06:18] LABS: BASO % 0.6 % (0.0-1.0); EOS # 0.2 10^3/uL (0.0-0.5); EOS % 2.7 % (0.0-3.0); HEMATOCRIT 29.3 % (36.0-47.0); LYMPH # 0.5 10^3/uL (1.5-5.0); LYMPH % 8.1 % (24.0-44.0); MEAN CORPUSCULAR HGB CONC 30.7 g/dl (32.0-36.5); MEAN CORPUSCULAR VOLUME 91.3 fl (80.0-96.0); MONO # 0.5 10^3/uL (0.0-0.8); MONO % 6.8 % (2.0-8.0); NEUTROPHILS # 5.4 10^3/uL (1.5-8.5); NEUTROPHILS % 80.7 % (36.0-66.0); PLATELET COUNT, AUTOMATED 226 10^3/uL (150-450); RED BLOOD COUNT 3.21 10^6/uL (4.00-5.40); WHITE BLOOD COUNT 6.6 10^3/uL (4.0-10.0)
[2023-11-22 06:42] LABS: CALCIUM LEVEL 8.2 MG/DL (8.3-10.6); CREATININE FOR GFR 2.24 MG/DL (0.55-1.30); GLOMERULAR FILTRATION RATE 22.4 (>39); MAGNESIUM LEVEL 1.8 MG/DL (1.8-2.4); POTASSIUM SERUM 4.2 MMOL/L (3.5-5.1)
[2023-11-22] MEDS: LEVEMIR (INSULIN DETEMIR) 1 UNITS/0.01ML SC SCH (09:23)
[2023-11-22] MEDS: TORSEMIDE 100 MG TAB PO SCH (09:24)
[2023-11-23] VITALS (8 sets, daily range): BP systolic 142–180; BP diastolic 53–72; TEMP 98.1–99.5; O2SAT 92–97
[2023-11-23 06:26] LABS: BASO % 0.2 % (0.0-1.0); EOS # 0.2 10^3/uL (0.0-0.5); EOS % 2.3 % (0.0-3.0); HEMATOCRIT 29.9 % (36.0-47.0); HEMOGLOBIN 9.3 g/dl (12.0-15.5); LYMPH # 0.5 10^3/uL (1.5-5.0); LYMPH % 5.1 % (24.0-44.0); MEAN CORPUSCULAR HEMOGLOBIN 28.3 pg (27.0-33.0); MEAN CORPUSCULAR HGB CONC 31.1 g/dl (32.0-36.5); MEAN CORPUSCULAR VOLUME 90.9 fl (80.0-96.0); MONO # 0.5 10^3/uL (0.0-0.8); MONO % 5.1 % (2.0-8.0); NEUTROPHILS # 8.2 10^3/uL (1.5-8.5); NEUTROPHILS % 86.7 % (36.0-66.0); PLATELET COUNT, AUTOMATED 217 10^3/uL (150-450); RED BLOOD COUNT 3.29 10^6/uL (4.00-5.40); WHITE BLOOD COUNT 9.5 10^3/uL (4.0-10.0)
[2023-11-23 06:45] LABS: CALCIUM LEVEL 8.1 MG/DL (8.3-10.6); CREATININE FOR GFR 2.1 MG/DL (0.55-1.30); GLOMERULAR FILTRATION RATE 24.2 (>39); MAGNESIUM LEVEL 1.7 MG/DL (1.8-2.4)
[2023-11-23] MEDS: PROMETHAZINE 25 MG TAB PO PRN (08:15)
[2023-11-23] MEDS: SENOKOT S TAB PO SCH (09:00)
[2023-11-23] MEDS: MAGNESIUM OXIDE 400MG TAB (MAG-OX) PO SCH (09:26)
[2023-11-24] VITALS (11 sets, daily range): BP systolic 150–169; BP diastolic 58–76; TEMP 99–101.2; O2SAT 90–96
[2023-11-24 06:29] LABS: BASO # 0.1 10^3/uL (0.0-0.2); BASO % 0.5 % (0.0-1.0); EOS # 0.2 10^3/uL (0.0-0.5); EOS % 1.7 % (0.0-3.0); HEMATOCRIT 28.4 % (36.0-47.0); HEMOGLOBIN 8.8 g/dl (12.0-15.5); LYMPH # 0.4 10^3/uL (1.5-5.0); LYMPH % 4.4 % (24.0-44.0); MEAN CORPUSCULAR HEMOGLOBIN 27.8 pg (27.0-33.0); MEAN CORPUSCULAR VOLUME 89.6 fl (80.0-96.0); MONO # 0.5 10^3/uL (0.0-0.8); MONO % 5.3 % (2.0-8.0); NEUTROPHILS # 8.7 10^3/uL (1.5-8.5); NEUTROPHILS % 87.6 % (36.0-66.0); PLATELET COUNT, AUTOMATED 193 10^3/uL (150-450); RED BLOOD COUNT 3.17 10^6/uL (4.00-5.40); WHITE BLOOD COUNT 9.9 10^3/uL (4.0-10.0)
[2023-11-24 07:05] LABS: CALCIUM LEVEL 8.1 MG/DL (8.3-10.6); CREATININE FOR GFR 1.99 MG/DL (0.55-1.30); GLOMERULAR FILTRATION RATE 25.7 (>39); MAGNESIUM LEVEL 1.7 MG/DL (1.8-2.4); POTASSIUM SERUM 3.8 MMOL/L (3.5-5.1)
[2023-11-24] MEDS: MAG SULF 1GM/100ML (MAG RUN) 1 GM in IV 1 EA IV ONE (08:37)
[2023-11-24] MEDS: LACTOBACILLUS ACIDOPHILUS CAP (BACID) PO SCH (08:40)
[2023-11-24] MEDS: MAGNESIUM OXIDE 400MG TAB (MAG-OX) PO SCH (08:40)
[2023-11-24] MEDS: ACETAMINOPHEN 500 MG TAB PO PRN (13:14)
[2023-11-24 22:05] LABS: BASO % 0.2 % (0.0-1.0); EOS # 0.1 10^3/uL (0.0-0.5); EOS % 0.6 % (0.0-3.0); HEMATOCRIT 29.1 % (36.0-47.0); HEMOGLOBIN 9.1 g/dl (12.0-15.5); LYMPH # 0.4 10^3/uL (1.5-5.0); LYMPH % 2.8 % (24.0-44.0); MEAN CORPUSCULAR HEMOGLOBIN 27.8 pg (27.0-33.0); MEAN CORPUSCULAR HGB CONC 31.3 g/dl (32.0-36.5); MONO # 0.7 10^3/uL (0.0-0.8); MONO % 4.7 % (2.0-8.0); NEUTROPHILS # 12.9 10^3/uL (1.5-8.5); NEUTROPHILS % 91.2 % (36.0-66.0); PLATELET COUNT, AUTOMATED 202 10^3/uL (150-450); RED BLOOD COUNT 3.27 10^6/uL (4.00-5.40); WHITE BLOOD COUNT 14.1 10^3/uL (4.0-10.0)
[2023-11-24 22:31] LABS: ALBUMIN 2.4 G/DL (3.2-5.2); BILIRUBIN,TOTAL 0.4 MG/DL (0.3-1.2); CALCIUM LEVEL 8.2 MG/DL (8.3-10.6); CREATININE FOR GFR 2.03 MG/DL (0.55-1.30); GLOMERULAR FILTRATION RATE 25.2 (>39); POTASSIUM SERUM 3.7 MMOL/L (3.5-5.1); TOTAL PROTEIN 5.7 G/DL (5.7-8.2)
[2023-11-24 22:43] LABS: PROCALCITONIN 0.15 ng/ml
[2023-11-25] VITALS (13 sets, daily range): BP systolic 124–167; BP diastolic 61–76; TEMP 97.7–100.5; O2SAT 83–95
[2023-11-25] MEDS: CEFEPIME HCL 2 GM in D5W 50 ML IV SCH (02:51)
[2023-11-25 06:15] LABS: BASO % 0.2 % (0.0-1.0); EOS # 0.2 10^3/uL (0.0-0.5); EOS % 1.2 % (0.0-3.0); HEMATOCRIT 27.8 % (36.0-47.0); HEMOGLOBIN 8.7 g/dl (12.0-15.5); LYMPH # 0.4 10^3/uL (1.5-5.0); MEAN CORPUSCULAR HEMOGLOBIN 28.1 pg (27.0-33.0); MEAN CORPUSCULAR HGB CONC 31.3 g/dl (32.0-36.5); MEAN CORPUSCULAR VOLUME 89.7 fl (80.0-96.0); MONO # 0.6 10^3/uL (0.0-0.8); MONO % 4.9 % (2.0-8.0); NEUTROPHILS % 90.3 % (36.0-66.0); PLATELET COUNT, AUTOMATED 183 10^3/uL (150-450); WHITE BLOOD COUNT 12.2 10^3/uL (4.0-10.0)
[2023-11-25 06:40] LABS: CALCIUM LEVEL 8.1 MG/DL (8.3-10.6); CREATININE FOR GFR 2.05 MG/DL (0.55-1.30); GLOMERULAR FILTRATION RATE 24.9 (>39); POTASSIUM SERUM 3.5 MMOL/L (3.5-5.1)
[2023-11-25 10:24] LABS: CLOSTRIDIUM DIFFICILE PCR POSITIVE (NEGATIVE)
[2023-11-25] MEDS: FIDAXOMICIN 200 MG TAB (DIFICID) PO SCH (13:06)
[2023-11-26 04:00] VITALS: BP 178/80; TEMP 98; O2SAT 92
[2023-11-26 06:20] LABS: BASO % 0.4 % (0.0-1.0); EOS # 0.2 10^3/uL (0.0-0.5); EOS % 2.1 % (0.0-3.0); HEMATOCRIT 27.6 % (36.0-47.0); HEMOGLOBIN 8.7 g/dl (12.0-15.5); LYMPH # 0.3 10^3/uL (1.5-5.0); LYMPH % 3.1 % (24.0-44.0); MEAN CORPUSCULAR HGB CONC 31.5 g/dl (32.0-36.5); MEAN CORPUSCULAR VOLUME 88.7 fl (80.0-96.0); MONO # 0.6 10^3/uL (0.0-0.8); MONO % 5.8 % (2.0-8.0); NEUTROPHILS # 9.6 10^3/uL (1.5-8.5); NEUTROPHILS % 88.2 % (36.0-66.0); PLATELET COUNT, AUTOMATED 180 10^3/uL (150-450); RED BLOOD COUNT 3.11 10^6/uL (4.00-5.40); WHITE BLOOD COUNT 10.9 10^3/uL (4.0-10.0)
[2023-11-26 06:39] LABS: CALCIUM LEVEL 7.6 MG/DL (8.3-10.6); CREATININE FOR GFR 2.37 MG/DL (0.55-1.30); POTASSIUM SERUM 3.5 MMOL/L (3.5-5.1)
[2023-11-26 08:29] VITALS: BP 166/60; TEMP 99.3; O2SAT 89
[2023-11-26] MEDS: POTASSIUM CHLORIDE 10MEQ SR TABLET PO ONE (11:08)
[2023-11-26 12:06] VITALS: BP 146/58; TEMP 98.1; O2SAT 94
[2023-11-26 16:10] VITALS: BP 140/68; TEMP 98.2; O2SAT 95
[2023-11-26 20:24] VITALS: BP 164/62; TEMP 98.4; O2SAT 95
[2023-11-27] VITALS (7 sets, daily range): BP systolic 149–157; BP diastolic 55–71; TEMP 97.2–99.1; O2SAT 90–96
[2023-11-27 06:07] LABS: BASO % 0.5 % (0.0-1.0); EOS # 0.3 10^3/uL (0.0-0.5); EOS % 3.4 % (0.0-3.0); HEMATOCRIT 27.2 % (36.0-47.0); HEMOGLOBIN 8.5 g/dl (12.0-15.5); LYMPH # 0.5 10^3/uL (1.5-5.0); MEAN CORPUSCULAR HEMOGLOBIN 27.5 pg (27.0-33.0); MEAN CORPUSCULAR HGB CONC 31.3 g/dl (32.0-36.5); MONO # 0.6 10^3/uL (0.0-0.8); MONO % 7.9 % (2.0-8.0); NEUTROPHILS # 6.2 10^3/uL (1.5-8.5); NEUTROPHILS % 80.8 % (36.0-66.0); PLATELET COUNT, AUTOMATED 205 10^3/uL (150-450); RED BLOOD COUNT 3.09 10^6/uL (4.00-5.40); WHITE BLOOD COUNT 7.7 10^3/uL (4.0-10.0)
[2023-11-27 06:37] LABS: CALCIUM LEVEL 7.8 MG/DL (8.3-10.6); CREATININE FOR GFR 2.27 MG/DL (0.55-1.30); GLOMERULAR FILTRATION RATE 22.1 (>39); POTASSIUM SERUM 3.5 MMOL/L (3.5-5.1)
[2023-11-27] MEDS: POTASSIUM CHLORIDE 10MEQ SR TABLET PO SCH (11:19)
[2023-11-27] MEDS: CARVedilol 12.5 MG TAB PO SCH (20:59)
[2023-11-28] VITALS (7 sets, daily range): BP systolic 138–180; BP diastolic 61–94; TEMP 98.1–98.6; O2SAT 92–96
[2023-11-28 06:05] LABS: HEMATOCRIT 28.9 % (36.0-47.0); HEMOGLOBIN 9.1 g/dl (12.0-15.5); MEAN CORPUSCULAR HEMOGLOBIN 28.2 pg (27.0-33.0); MEAN CORPUSCULAR HGB CONC 31.5 g/dl (32.0-36.5); MEAN CORPUSCULAR VOLUME 89.5 fl (80.0-96.0); PLATELET COUNT, AUTOMATED 236 10^3/uL (150-450); RED BLOOD COUNT 3.23 10^6/uL (4.00-5.40); WHITE BLOOD COUNT 6.2 10^3/uL (4.0-10.0)
[2023-11-28 06:44] LABS: ALBUMIN 2.5 G/DL (3.2-5.2); BILIRUBIN,TOTAL 0.4 MG/DL (0.3-1.2); CALCIUM LEVEL 8.4 MG/DL (8.3-10.6); CREATININE FOR GFR 2.4 MG/DL (0.55-1.30); GLOMERULAR FILTRATION RATE 20.7 (>39); POTASSIUM SERUM 4.3 MMOL/L (3.5-5.1); TOTAL PROTEIN 6.4 G/DL (5.7-8.2)
[2023-11-29] VITALS: BP 159/65; TEMP 97.5; O2SAT 92
[2023-11-29 04:00] VITALS: BP 155/62; TEMP 98.2; O2SAT 93
[2023-11-29 05:58] LABS: HEMATOCRIT 28.1 % (36.0-47.0); HEMOGLOBIN 8.6 g/dl (12.0-15.5); MEAN CORPUSCULAR HEMOGLOBIN 27.4 pg (27.0-33.0); MEAN CORPUSCULAR HGB CONC 30.6 g/dl (32.0-36.5); MEAN CORPUSCULAR VOLUME 89.5 fl (80.0-96.0); PLATELET COUNT, AUTOMATED 245 10^3/uL (150-450); RED BLOOD COUNT 3.14 10^6/uL (4.00-5.40); WHITE BLOOD COUNT 4.7 10^3/uL (4.0-10.0)
[2023-11-29 06:33] LABS: ALBUMIN 2.4 G/DL (3.2-5.2); BILIRUBIN,TOTAL 0.3 MG/DL (0.3-1.2); CALCIUM LEVEL 8.2 MG/DL (8.3-10.6); CREATININE FOR GFR 2.2 MG/DL (0.55-1.30); GLOMERULAR FILTRATION RATE 22.9 (>39)
[2023-11-29 08:00] VITALS: BP 157/64; TEMP 98.1; O2SAT 93
[2023-11-29 12:00] VITALS: BP 159/65; TEMP 98.2; O2SAT 95
[2023-11-29 16:00] VITALS: BP 154/63; TEMP 98.1; O2SAT 95
[2023-11-29 19:46] VITALS: BP 152/62; TEMP 98.2; O2SAT 93
[2023-11-30] VITALS: BP 146/60; TEMP 97.7; O2SAT 90
[2023-11-30] MEDS: traZODone 25MG PER 1/2 TABLET PO ONE (01:24)
[2023-11-30 04:00] VITALS: BP 145/60; TEMP 97.3; O2SAT 94
[2023-11-30 05:58] LABS: HEMATOCRIT 30.3 % (36.0-47.0); HEMOGLOBIN 9.2 g/dl (12.0-15.5); MEAN CORPUSCULAR HEMOGLOBIN 27.1 pg (27.0-33.0); MEAN CORPUSCULAR HGB CONC 30.4 g/dl (32.0-36.5); MEAN CORPUSCULAR VOLUME 89.4 fl (80.0-96.0); PLATELET COUNT, AUTOMATED 276 10^3/uL (150-450); RED BLOOD COUNT 3.39 10^6/uL (4.00-5.40); WHITE BLOOD COUNT 4.5 10^3/uL (4.0-10.0)
[2023-11-30 06:33] LABS: ALBUMIN 2.4 G/DL (3.2-5.2); BILIRUBIN,TOTAL 0.4 MG/DL (0.3-1.2); CALCIUM LEVEL 8.2 MG/DL (8.3-10.6); CREATININE FOR GFR 2.42 MG/DL (0.55-1.30); GLOMERULAR FILTRATION RATE 20.5 (>39); POTASSIUM SERUM 4.2 MMOL/L (3.5-5.1); TOTAL PROTEIN 6.3 G/DL (5.7-8.2)
[2023-11-30 08:00] VITALS: BP 169/69; TEMP 98.1; O2SAT 90
[2023-11-30 12:00] VITALS: BP 158/69; TEMP 98.8; O2SAT 93
[2023-11-30 16:00] VITALS: BP 175/78; TEMP 98.1; O2SAT 91
[2023-11-30 20:00] VITALS: BP 173/75; TEMP 98.2; O2SAT 94
[2023-12-01] MEDS: traZODone 25MG PER 1/2 TABLET PO PRN (00:03)
[2023-12-01 04:00] VITALS: BP 159/69; TEMP 98.2; O2SAT 91
[2023-12-01 07:15] LABS: HEMATOCRIT 29.9 % (36.0-47.0); HEMOGLOBIN 9.6 g/dl (12.0-15.5); MEAN CORPUSCULAR HEMOGLOBIN 28.4 pg (27.0-33.0); MEAN CORPUSCULAR HGB CONC 32.1 g/dl (32.0-36.5); MEAN CORPUSCULAR VOLUME 88.5 fl (80.0-96.0); PLATELET COUNT, AUTOMATED 321 10^3/uL (150-450); RED BLOOD COUNT 3.38 10^6/uL (4.00-5.40); WHITE BLOOD COUNT 4.9 10^3/uL (4.0-10.0)
[2023-12-01 07:44] LABS: ALBUMIN 2.7 G/DL (3.2-5.2); BILIRUBIN,TOTAL 0.4 MG/DL (0.3-1.2); CALCIUM LEVEL 8.4 MG/DL (8.3-10.6); CREATININE FOR GFR 2.22 MG/DL (0.55-1.30); GLOMERULAR FILTRATION RATE 22.7 (>39); POTASSIUM SERUM 4.3 MMOL/L (3.5-5.1); TOTAL PROTEIN 6.6 G/DL (5.7-8.2)
[2023-12-01 08:00] VITALS: BP 157/64; TEMP 98.1; O2SAT 94
[2023-12-01] MEDS ORDERED: CARV25TA PO (08:14)
[2023-12-01] MEDS ORDERED: DIFI200T PO (08:14)
[2023-12-01] MEDS ORDERED: TOUJ1.2I SC (08:15)
[2023-12-01 12:00] VITALS: BP 120/66; TEMP 97.7; O2SAT 94
[2023-12-01 16:00] VITALS: BP 135/67; TEMP 97.7; O2SAT 95
[2023-12-01] MEDS: metOLazone 5 MG TAB PO ONE (17:29)
[2023-12-01 19:58] VITALS: BP 142/64; TEMP 97.9; O2SAT 98
[2023-12-02] VITALS (7 sets, daily range): BP systolic 138–190; BP diastolic 62–78; TEMP 97.3–98.2; O2SAT 93–97
[2023-12-02 06:36] LABS: HEMATOCRIT 32.2 % (36.0-47.0); HEMOGLOBIN 10.3 g/dl (12.0-15.5); MEAN CORPUSCULAR VOLUME 87.5 fl (80.0-96.0); PLATELET COUNT, AUTOMATED 368 10^3/uL (150-450); RED BLOOD COUNT 3.68 10^6/uL (4.00-5.40); WHITE BLOOD COUNT 6.2 10^3/uL (4.0-10.0)
[2023-12-02 07:06] LABS: ALBUMIN 2.8 G/DL (3.2-5.2); BILIRUBIN,TOTAL 0.5 MG/DL (0.3-1.2); CALCIUM LEVEL 8.9 MG/DL (8.3-10.6); CREATININE FOR GFR 2.09 MG/DL (0.55-1.30); GLOMERULAR FILTRATION RATE 24.3 (>39); POTASSIUM SERUM 4.9 MMOL/L (3.5-5.1); TOTAL PROTEIN 6.9 G/DL (5.7-8.2)
[2023-12-02] MEDS: metOLazone 5 MG TAB PO SCH (10:23)
[2023-12-02] MEDS ORDERED: PILL CUTTER 1 EACH XX ONE (13:59)
[2023-12-02] MEDS: LORazepam 0.5 MG TAB PO ONE (14:04)
[2023-12-03 04:00] VITALS: BP 146/57; TEMP 98.4; O2SAT 93
[2023-12-03 06:23] LABS: HEMATOCRIT 29.6 % (36.0-47.0); HEMOGLOBIN 9.5 g/dl (12.0-15.5); MEAN CORPUSCULAR HGB CONC 32.1 g/dl (32.0-36.5); MEAN CORPUSCULAR VOLUME 87.3 fl (80.0-96.0); PLATELET COUNT, AUTOMATED 355 10^3/uL (150-450); RED BLOOD COUNT 3.39 10^6/uL (4.00-5.40); WHITE BLOOD COUNT 5.5 10^3/uL (4.0-10.0)
[2023-12-03 06:43] LABS: ALBUMIN 2.5 G/DL (3.2-5.2); BILIRUBIN,TOTAL 0.4 MG/DL (0.3-1.2); CALCIUM LEVEL 8.2 MG/DL (8.3-10.6); CREATININE FOR GFR 2.23 MG/DL (0.55-1.30); GLOMERULAR FILTRATION RATE 22.6 (>39); POTASSIUM SERUM 4.8 MMOL/L (3.5-5.1); TOTAL PROTEIN 6.2 G/DL (5.7-8.2)
[2023-12-03 08:00] VITALS: BP 136/59; TEMP 98.2; O2SAT 92
[2023-12-03] MEDS: LEVEMIR (INSULIN DETEMIR) 1 UNITS/0.01ML SC SCH (08:25)
[2023-12-03 10:00] VITALS: O2SAT 92
[2023-12-03 12:00] VITALS: BP 160/72; TEMP 97.9; O2SAT 93
[2023-12-03 20:00] VITALS: BP 109/61; TEMP 97.9; O2SAT 93
[2023-12-04] VITALS (9 sets, daily range): BP systolic 142–162; BP diastolic 57–70; TEMP 96.8–99; O2SAT 92–96
[2023-12-04 06:42] LABS: HEMATOCRIT 31.8 % (36.0-47.0); HEMOGLOBIN 10.1 g/dl (12.0-15.5); MEAN CORPUSCULAR HEMOGLOBIN 27.8 pg (27.0-33.0); MEAN CORPUSCULAR HGB CONC 31.8 g/dl (32.0-36.5); MEAN CORPUSCULAR VOLUME 87.6 fl (80.0-96.0); PLATELET COUNT, AUTOMATED 374 10^3/uL (150-450); RED BLOOD COUNT 3.63 10^6/uL (4.00-5.40); WHITE BLOOD COUNT 5.2 10^3/uL (4.0-10.0)
[2023-12-04 07:09] LABS: ALBUMIN 2.7 G/DL (3.2-5.2); BILIRUBIN,TOTAL 0.5 MG/DL (0.3-1.2); CALCIUM LEVEL 9.1 MG/DL (8.3-10.6); CREATININE FOR GFR 2.43 MG/DL (0.55-1.30); GLOMERULAR FILTRATION RATE 20.4 (>39); POTASSIUM SERUM 4.6 MMOL/L (3.5-5.1); TOTAL PROTEIN 6.7 G/DL (5.7-8.2)
[2023-12-04] MEDS: SYMBICORT 80/4.5MCG INHALER 6GM INH SCH (20:15)
[2023-12-05] VITALS (9 sets, daily range): BP systolic 136–162; BP diastolic 50–69; TEMP 97.3–98.2; O2SAT 92–96
[2023-12-05] MEDS: TIOTROPIUM INHALER/CAPSULE (SPIRIVA) INH SCH (07:33)
[2023-12-05 08:35] LABS: CALCIUM LEVEL 9.1 MG/DL (8.3-10.6); CREATININE FOR GFR 2.63 MG/DL (0.55-1.30); GLOMERULAR FILTRATION RATE 18.7 (>39); POTASSIUM SERUM 4.6 MMOL/L (3.5-5.1)
[2023-12-06] VITALS (10 sets, daily range): BP systolic 135–180; BP diastolic 64–80; TEMP 97.7–98.1; O2SAT 72–100
[2023-12-06] MEDS: traZODone 25MG PER 1/2 TABLET PO PRN (00:36)
[2023-12-06 05:55] LABS: BASO # 0.1 10^3/uL (0.0-0.2); BASO % 1.1 % (0.0-1.0); EOS # 0.4 10^3/uL (0.0-0.5); EOS % 6.9 % (0.0-3.0); HEMATOCRIT 32.9 % (36.0-47.0); HEMOGLOBIN 10.4 g/dl (12.0-15.5); LYMPH # 0.7 10^3/uL (1.5-5.0); LYMPH % 13.3 % (24.0-44.0); MEAN CORPUSCULAR HEMOGLOBIN 27.5 pg (27.0-33.0); MEAN CORPUSCULAR HGB CONC 31.6 g/dl (32.0-36.5); MONO # 0.5 10^3/uL (0.0-0.8); MONO % 10.1 % (2.0-8.0); NEUTROPHILS # 3.6 10^3/uL (1.5-8.5); NEUTROPHILS % 67.9 % (36.0-66.0); PLATELET COUNT, AUTOMATED 355 10^3/uL (150-450); RED BLOOD COUNT 3.78 10^6/uL (4.00-5.40); WHITE BLOOD COUNT 5.3 10^3/uL (4.0-10.0)
[2023-12-06 06:24] LABS: CALCIUM LEVEL 8.9 MG/DL (8.3-10.6); CREATININE FOR GFR 2.58 MG/DL (0.55-1.30); GLOMERULAR FILTRATION RATE 19.1 (>39); POTASSIUM SERUM 4.8 MMOL/L (3.5-5.1)
[2023-12-06 08:45] LABS: BILIRUBIN,DIRECT 0.2 MG/DL (<0.4); BILIRUBIN,TOTAL 0.4 MG/DL (0.3-1.2); TOTAL PROTEIN 6.9 G/DL (5.7-8.2)
[2023-12-06] MEDS: GLUCOSE 4 GM CHEW PO PRN (19:48)
[2023-12-07] VITALS (11 sets, daily range): BP systolic 146–168; BP diastolic 59–71; TEMP 97.1–98.4; O2SAT 85–98
[2023-12-07 05:32] LABS: BASO # 0.1 10^3/uL (0.0-0.2); BASO % 1.1 % (0.0-1.0); EOS # 0.3 10^3/uL (0.0-0.5); EOS % 5.9 % (0.0-3.0); HEMOGLOBIN 10.8 g/dl (12.0-15.5); LYMPH # 0.6 10^3/uL (1.5-5.0); LYMPH % 11.5 % (24.0-44.0); MEAN CORPUSCULAR HEMOGLOBIN 27.7 pg (27.0-33.0); MEAN CORPUSCULAR HGB CONC 31.8 g/dl (32.0-36.5); MEAN CORPUSCULAR VOLUME 87.2 fl (80.0-96.0); MONO # 0.5 10^3/uL (0.0-0.8); MONO % 8.9 % (2.0-8.0); NEUTROPHILS # 3.9 10^3/uL (1.5-8.5); NEUTROPHILS % 71.9 % (36.0-66.0); PLATELET COUNT, AUTOMATED 341 10^3/uL (150-450); WHITE BLOOD COUNT 5.4 10^3/uL (4.0-10.0)
[2023-12-07 05:54] LABS: CALCIUM LEVEL 8.7 MG/DL (8.3-10.6); CREATININE FOR GFR 2.62 MG/DL (0.55-1.30); GLOMERULAR FILTRATION RATE 18.7 (>39); POTASSIUM SERUM 4.5 MMOL/L (3.5-5.1)
[2023-12-07] MEDS: LEVEMIR (INSULIN DETEMIR) 1 UNITS/0.01ML SC SCH (09:17)
[2023-12-08] VITALS (12 sets, daily range): BP systolic 111–178; BP diastolic 52–80; TEMP 98.1–98.4; O2SAT 84–97
[2023-12-08 07:06] LABS: BASO % 0.8 % (0.0-1.0); EOS # 0.3 10^3/uL (0.0-0.5); EOS % 5.1 % (0.0-3.0); HEMATOCRIT 33.6 % (36.0-47.0); HEMOGLOBIN 10.6 g/dl (12.0-15.5); LYMPH # 0.5 10^3/uL (1.5-5.0); LYMPH % 9.9 % (24.0-44.0); MEAN CORPUSCULAR HEMOGLOBIN 27.5 pg (27.0-33.0); MEAN CORPUSCULAR HGB CONC 31.5 g/dl (32.0-36.5); MONO # 0.6 10^3/uL (0.0-0.8); MONO % 10.8 % (2.0-8.0); NEUTROPHILS # 3.8 10^3/uL (1.5-8.5); NEUTROPHILS % 72.8 % (36.0-66.0); PLATELET COUNT, AUTOMATED 331 10^3/uL (150-450); RED BLOOD COUNT 3.86 10^6/uL (4.00-5.40); WHITE BLOOD COUNT 5.3 10^3/uL (4.0-10.0)
[2023-12-08 07:20] LABS: CALCIUM LEVEL 8.2 MG/DL (8.3-10.6); CREATININE FOR GFR 2.63 MG/DL (0.55-1.30); GLOMERULAR FILTRATION RATE 18.7 (>39); POTASSIUM SERUM 4.8 MMOL/L (3.5-5.1)
[2023-12-08] MEDS: LACTULOSE 20GM/30ML SYRUP UDC PO SCH (16:11)
[2023-12-08] MEDS: SENOKOT S TAB PO SCH (21:59)
[2023-12-08] MEDS: ACETAMINOPHEN *IV* 500 MG in IV 1 EA IV ONE (23:17)
[2023-12-09] VITALS: BP 125/68; TEMP 97; O2SAT 93
[2023-12-09 04:02] VITALS: BP 149/67; TEMP 98.2; O2SAT 93
[2023-12-09] MEDS: BISACODYL 10MG SUPP PR PRN (05:21)
[2023-12-09] MEDS: MIRALAX *UNIT DOSE* 17GM PACKET PO PRN (05:21)
[2023-12-09 07:50] LABS: BASO # 0.1 10^3/uL (0.0-0.2); BASO % 1.3 % (0.0-1.0); EOS # 0.3 10^3/uL (0.0-0.5); EOS % 6.1 % (0.0-3.0); HEMATOCRIT 33.7 % (36.0-47.0); HEMOGLOBIN 10.7 g/dl (12.0-15.5); LYMPH # 0.6 10^3/uL (1.5-5.0); LYMPH % 13.2 % (24.0-44.0); MEAN CORPUSCULAR HEMOGLOBIN 27.8 pg (27.0-33.0); MEAN CORPUSCULAR HGB CONC 31.8 g/dl (32.0-36.5); MEAN CORPUSCULAR VOLUME 87.5 fl (80.0-96.0); MONO # 0.5 10^3/uL (0.0-0.8); MONO % 10.5 % (2.0-8.0); NEUTROPHILS # 3.3 10^3/uL (1.5-8.5); NEUTROPHILS % 68.5 % (36.0-66.0); PLATELET COUNT, AUTOMATED 304 10^3/uL (150-450); RED BLOOD COUNT 3.85 10^6/uL (4.00-5.40); WHITE BLOOD COUNT 4.8 10^3/uL (4.0-10.0)
[2023-12-09 08:04] LABS: CALCIUM LEVEL 8.4 MG/DL (8.3-10.6); CREATININE FOR GFR 2.47 MG/DL (0.55-1.30); GLOMERULAR FILTRATION RATE 20.1 (>39); POTASSIUM SERUM 4.5 MMOL/L (3.5-5.1)
[2023-12-09 08:27] VITALS: BP 165/70; TEMP 98.4; O2SAT 93
[2023-12-09 12:00] VITALS: BP 141/92; TEMP 98.1; O2SAT 92
[2023-12-09 16:23] VITALS: BP 134/90; TEMP 98.2; O2SAT 93
[2023-12-09 20:12] VITALS: BP 153/86; TEMP 98.2; O2SAT 90
[2023-12-10] VITALS (7 sets, daily range): BP systolic 122–174; BP diastolic 58–82; TEMP 97.3–98.2; O2SAT 93–96
[2023-12-10 05:51] LABS: BASO # 0.1 10^3/uL (0.0-0.2); BASO % 1.7 % (0.0-1.0); EOS # 0.3 10^3/uL (0.0-0.5); HEMATOCRIT 35.9 % (36.0-47.0); HEMOGLOBIN 11.3 g/dl (12.0-15.5); LYMPH # 0.6 10^3/uL (1.5-5.0); LYMPH % 12.1 % (24.0-44.0); MEAN CORPUSCULAR HGB CONC 31.5 g/dl (32.0-36.5); MEAN CORPUSCULAR VOLUME 88.9 fl (80.0-96.0); MONO # 0.5 10^3/uL (0.0-0.8); MONO % 10.9 % (2.0-8.0); NEUTROPHILS # 3.2 10^3/uL (1.5-8.5); NEUTROPHILS % 68.9 % (36.0-66.0); PLATELET COUNT, AUTOMATED 279 10^3/uL (150-450); RED BLOOD COUNT 4.04 10^6/uL (4.00-5.40); WHITE BLOOD COUNT 4.7 10^3/uL (4.0-10.0)
[2023-12-10 06:09] LABS: CALCIUM LEVEL 8.6 MG/DL (8.3-10.6); CREATININE FOR GFR 2.45 MG/DL (0.55-1.30); GLOMERULAR FILTRATION RATE 20.2 (>39); POTASSIUM SERUM 4.4 MMOL/L (3.5-5.1)
[2023-12-11] VITALS (8 sets, daily range): BP systolic 133–182; BP diastolic 62–70; TEMP 97.5–98.2; O2SAT 91–98
[2023-12-11 06:34] LABS: BASO # 0.1 10^3/uL (0.0-0.2); BASO % 1.1 % (0.0-1.0); EOS # 0.3 10^3/uL (0.0-0.5); EOS % 6.1 % (0.0-3.0); HEMATOCRIT 35.7 % (36.0-47.0); HEMOGLOBIN 11.3 g/dl (12.0-15.5); LYMPH # 0.6 10^3/uL (1.5-5.0); LYMPH % 13.5 % (24.0-44.0); MEAN CORPUSCULAR HEMOGLOBIN 28.1 pg (27.0-33.0); MEAN CORPUSCULAR HGB CONC 31.7 g/dl (32.0-36.5); MEAN CORPUSCULAR VOLUME 88.8 fl (80.0-96.0); MONO # 0.4 10^3/uL (0.0-0.8); NEUTROPHILS # 3.1 10^3/uL (1.5-8.5); NEUTROPHILS % 69.8 % (36.0-66.0); PLATELET COUNT, AUTOMATED 252 10^3/uL (150-450); RED BLOOD COUNT 4.02 10^6/uL (4.00-5.40); WHITE BLOOD COUNT 4.4 10^3/uL (4.0-10.0)
[2023-12-11 07:21] LABS: CALCIUM LEVEL 8.6 MG/DL (8.3-10.6); CREATININE FOR GFR 2.42 MG/DL (0.55-1.30); GLOMERULAR FILTRATION RATE 20.5 (>39); POTASSIUM SERUM 4.4 MMOL/L (3.5-5.1)
[2023-12-12] VITALS (8 sets, daily range): BP systolic 132–162; BP diastolic 54–78; TEMP 97.5–98.8; O2SAT 88–97
[2023-12-12] MEDS: LEVALBUTEROL HFA 45MCG/ACT 15GM INHALER INH PRN (01:51)
[2023-12-12 06:29] LABS: HEMATOCRIT 33.2 % (36.0-47.0); HEMOGLOBIN 10.6 g/dl (12.0-15.5); MEAN CORPUSCULAR HGB CONC 31.9 g/dl (32.0-36.5); MEAN CORPUSCULAR VOLUME 87.8 fl (80.0-96.0); PLATELET COUNT, AUTOMATED 231 10^3/uL (150-450); RED BLOOD COUNT 3.78 10^6/uL (4.00-5.40); WHITE BLOOD COUNT 3.9 10^3/uL (4.0-10.0)
[2023-12-12 07:01] LABS: ALBUMIN 2.9 G/DL (3.2-5.2); BILIRUBIN,TOTAL 0.4 MG/DL (0.3-1.2); CALCIUM LEVEL 8.7 MG/DL (8.3-10.6); CREATININE FOR GFR 2.34 MG/DL (0.55-1.30); GLOMERULAR FILTRATION RATE 21.3 (>39); POTASSIUM SERUM 4.2 MMOL/L (3.5-5.1); TOTAL PROTEIN 6.1 G/DL (5.7-8.2)
[2023-12-12] MEDS ORDERED: PROB250C PO (19:33)
[2023-12-13] VITALS: BP 152/60; TEMP 98.2; O2SAT 93
[2023-12-13 04:00] VITALS: TEMP 98.2; O2SAT 91
[2023-12-13 06:00] LABS: HEMATOCRIT 35.7 % (36.0-47.0); HEMOGLOBIN 11.3 g/dl (12.0-15.5); MEAN CORPUSCULAR HGB CONC 31.7 g/dl (32.0-36.5); MEAN CORPUSCULAR VOLUME 88.4 fl (80.0-96.0); PLATELET COUNT, AUTOMATED 237 10^3/uL (150-450); RED BLOOD COUNT 4.04 10^6/uL (4.00-5.40); WHITE BLOOD COUNT 4.4 10^3/uL (4.0-10.0)
[2023-12-13 06:30] LABS: ALBUMIN 3.2 G/DL (3.2-5.2); BILIRUBIN,TOTAL 0.5 MG/DL (0.3-1.2); CALCIUM LEVEL 9.1 MG/DL (8.3-10.6); CREATININE FOR GFR 2.28 MG/DL (0.55-1.30); POTASSIUM SERUM 3.9 MMOL/L (3.5-5.1); TOTAL PROTEIN 6.5 G/DL (5.7-8.2)
[2023-12-13 09:14] VITALS: BP 146/72
[2023-12-13 12:00] VITALS: BP 180/82; TEMP 98.2; O2SAT 96
[2023-12-13 14:07] VITALS: BP 144/70
== END 2023-12-13 14:38 | disposition home health service (06) | DRG 291 ==
LOC: M ED 16:00 → M ED INP 11-15 00:29 → M MSPAV 11-15 14:27
PROVIDERS: ADMIT Internal Medicine; ATTEND Internal Medicine
PROC: 30233N1 Transfusion of Nonautologous Red Blood Cells into Peripheral Vein, Percutaneous Approach (ICD-10-PCS; principal; 2023-11-17)
DX: I13.0 Hypertensive heart and chronic kidney disease with heart failure and stage 1 through stage 4 chronic kidney disease, or unspecified chronic kidney disease (principal); I50.33 Acute on chronic diastolic (congestive) heart failure; J18.9 Pneumonia, unspecified organism; J96.01 Acute respiratory failure with hypoxia; N17.9 Acute kidney failure, unspecified; A04.72 Enterocolitis due to Clostridium difficile, not specified as recurrent; N25.81 Secondary hyperparathyroidism of renal origin; E03.9 Hypothyroidism, unspecified; D50.9 Iron deficiency anemia, unspecified; N18.32 Chronic kidney disease, stage 3b; E78.5 Hyperlipidemia, unspecified; E87.6 Hypokalemia; E11.649 Type 2 diabetes mellitus with hypoglycemia without coma; E66.01 Morbid (severe) obesity due to excess calories; D63.8 Anemia in other chronic diseases classified elsewhere; I65.23 Occlusion and stenosis of bilateral carotid arteries; I95.1 Orthostatic hypotension; J45.909 Unspecified asthma, uncomplicated; M10.9 Gout, unspecified; F32.9 Major depressive disorder, single episode, unspecified; F41.9 Anxiety disorder, unspecified; M19.90 Unspecified osteoarthritis, unspecified site; G47.33 Obstructive sleep apnea (adult) (pediatric); Z91.119 Patient's noncompliance with dietary regimen due to unspecified reason; R29.6 Repeated falls; Z79.4 Long term (current) use of insulin; Z88.5 Allergy status to narcotic agent; Z88.8 Allergy status to other drugs, medicaments and biological substances; Z79.899 Other long term (current) drug therapy; Z79.82 Long term (current) use of aspirin; K57.90 Diverticulosis of intestine, part unspecified, without perforation or abscess without bleeding; K64.8 Other hemorrhoids; K59.00 Constipation, unspecified

== ENCOUNTER → 2023-11-14 | Outpatient (REF) | payer MEDICARE ==
[2023-11-14 19:15] LABS: FREE T4 1.14 NG/DL (0.89-1.76); THYROID STIMULATING HORMONE 3.308 uIU/ML (0.55-4.78)
== END ==
LOC: M LAB REF 17:09
PROVIDERS: ATTEND Family Medicine
DX: E03.9 Hypothyroidism, unspecified (principal)

== ENCOUNTER 2024-01-30 11:16 | Inpatient (IN) | payer MEDICARE ==
[~2024-01-30] VITALS: Ht 142.2 cm; Wt 68.0 kg
[2024-01-30] VITALS (11 sets, daily range): BP systolic 121–145; BP diastolic 53–72; PULSE 72; TEMP 96.8–97.2; O2SAT 94–98
[~2024-01-30 11:16] MED LIST changes: +DIFI200T PO; +PROB250C PO; -ROSU20TA61 PO; +ROSU20TA86 PO; +SERT-141 PO; +TORS20TA2 PO
[2024-01-30 12:17] LABS: VENOUS BASE EXCESS -21.5 (-2.0-2.0); VENOUS HCO3 7.4 MMOL/L (23.0-27.0); VENOUS O2 SATURATION 96.7 % (60.0-80.0); VENOUS PARTIAL PRESSURE CO2 26.9 mmHg (38.0-50.0); VENOUS STANDARD HCO3 8.9 MMOL/L; VENOUS TOTAL CO2 8.3 MMOL/L (24.0-28.0)
[2024-01-30 12:26] LABS: BASO # 0.1 10^3/uL (0.0-0.2); BASO % 0.7 % (0.0-1.0); EOS # 0.1 10^3/uL (0.0-0.5); EOS % 0.7 % (0.0-3.0); HEMATOCRIT 35.2 % (36.0-47.0); HEMOGLOBIN 10.8 g/dl (12.0-15.5); LYMPH # 0.4 10^3/uL (1.5-5.0); LYMPH % 4.6 % (24.0-44.0); MEAN CORPUSCULAR HEMOGLOBIN 27.8 pg (27.0-33.0); MEAN CORPUSCULAR HGB CONC 30.7 g/dl (32.0-36.5); MEAN CORPUSCULAR VOLUME 90.7 fl (80.0-96.0); MONO # 0.2 10^3/uL (0.0-0.8); MONO % 2.9 % (2.0-8.0); NEUTROPHILS # 6.9 10^3/uL (1.5-8.5); NEUTROPHILS % 89.8 % (36.0-66.0); PLATELET COUNT, AUTOMATED 210 10^3/uL (150-450); RED BLOOD COUNT 3.88 10^6/uL (4.00-5.40); WHITE BLOOD COUNT 7.7 10^3/uL (4.0-10.0)
[2024-01-30 12:51] LABS: ABG BASE EXCESS -21.2 (-2.0-2.0); ABG O2 SATURATION 96.6 % (95.0-99.0); ABG PARTIAL PRESSURE CO2 23.7 mmHg (35.0-45.0); ABG PARTIAL PRESSURE O2 96.6 mmHg (75.0-100.0); ABG TOTAL CO2 7.7 MMOL/L (23.0-31.0)
[2024-01-30 12:52] LABS: THYROID STIMULATING HORMONE 10.451 uIU/ML (0.55-4.78); THYROXINE (T4) 1.6 UG/DL (4.5-10.9)
[2024-01-30 13:04] LABS: ALBUMIN 2.7 G/DL (3.2-5.2); ALKALINE PHOSPHATASE 67 U/L (46-116); ALT/SGPT 11 U/L (7.0-40); AST/SGOT 14 U/L (<34); BILIRUBIN,DIRECT < 0.1 MG/DL (<0.4); BILIRUBIN,TOTAL 0.2 MG/DL (0.3-1.2); BLOOD UREA NITROGEN 111 MG/DL (9-23); CALCIUM LEVEL 7.4 MG/DL (8.3-10.6); CARBON DIOXIDE LEVEL < 10.0 MMOL/L (20-31); CHLORIDE LEVEL 113 MMOL/L (98-107); CPK CREATINE PHOSPHOKINASE 387 U/L (34-145); CREATININE FOR GFR 5.53 MG/DL (0.55-1.30); GLOMERULAR FILTRATION RATE 7.9 (>39); GLUCOSE, FASTING 154 MG/DL (74-106); MB/CK RELATIVE INDEX 1.03 (< OR =4); POTASSIUM SERUM 8.2 MMOL/L (3.5-5.1); SODIUM LEVEL 134 MMOL/L (136-145); TOTAL PROTEIN 6.1 G/DL (5.7-8.2)
[2024-01-30 13:14] LABS: ABG pH (ARTERIAL) 7.089 UNITS (7.350-7.450)
[2024-01-30] MEDS: PATIROMER SORBITEX CALCIUM 8.4 GM POWDER PACKET (VELTASSA) PO ONE (13:25)
[2024-01-30] MEDS: CALCIUM CHLORIDE 10% 1 GM/10 ML SYR IV ONE (13:26)
[2024-01-30] MEDS: DEXTROSE 50% 50ML SYRINGE IV ONE (13:26)
[2024-01-30] MEDS: SODIUM BICARBONATE 8.4% INJ 50ML SYRINGE IV ONE (13:26)
[2024-01-30] MEDS: HumuLIN R (REGULAR) INSULIN (NovoLIN R) **100U/ML** PER UNIT IV ONE (13:27)
[2024-01-30] MEDS: SODIUM BICARBONATE 150 MEQ in STERILE WATER LITER BAG 1,000 ML IV SCH ×2 (14:13→19:05)
[2024-01-30] MEDS ORDERED: ALBUTEROL SULFATE 2.5MG/0.5ML INH NEB SOLN NEB PRN (14:25)
[2024-01-30 14:30] LABS: CK-MB VALUE MASS 4.1 NG/ML (<3.6); MB/CK RELATIVE INDEX 1.11 (< OR =4)
[2024-01-30 15:25] LABS: VENOUS BASE EXCESS -19.3 (-2.0-2.0); VENOUS HCO3 8.5 MMOL/L (23.0-27.0); VENOUS PARTIAL PRESSURE CO2 26.4 mmHg (38.0-50.0); VENOUS PARTIAL PRESSURE O2 174.3 mmHg (30.0-50.0); VENOUS PH 7.125 UNITS (7.330-7.430); VENOUS STANDARD HCO3 10.3 MMOL/L; VENOUS TOTAL CO2 9.3 MMOL/L (24.0-28.0)
[2024-01-30] MEDS ORDERED: SERT25TA21 PO (15:58)
[2024-01-30] MEDS ORDERED: MINO10TA PO (15:58)
[2024-01-30] MEDS ORDERED: CVS1CAP2 PO (15:58)
[2024-01-30] MEDS ORDERED: POTA-151 PO (15:58)
[2024-01-30] MEDS ORDERED: SODIUM BICARBONATE 150 MEQ in STERILE WATER LITER BAG 1,000 ML IV SCH (16:00)
[2024-01-30] MEDS ORDERED: HOME MED LIST COMPLETE! XX SCH (16:00)
[2024-01-30] MEDS ORDERED: PILL CUTTER 1 EACH XX PRN (16:25)
[2024-01-30] MEDS ORDERED: GLUCOSE 4 GM CHEW PO PRN (16:35)
[2024-01-30] MEDS ORDERED: DEXTROSE 50% 50ML SYRINGE IV PRN (16:35)
[2024-01-30] MEDS ORDERED: GLUCAGON INJ 1MG VIAL SC PRN (16:35)
[2024-01-30] MEDS: FUROSEMIDE 100MG/10ML VIAL IV ONE (17:25)
[2024-01-30] MEDS: INSULIN LISPRO (NovoLOG) PER UNIT SC SCH ×2 (18:17→21:00)
[2024-01-30 18:37] LABS: VENOUS BASE EXCESS -18.9 (-2.0-2.0); VENOUS HCO3 9.2 MMOL/L (23.0-27.0); VENOUS O2 SATURATION 99.4 % (60.0-80.0); VENOUS PARTIAL PRESSURE CO2 29.5 mmHg (38.0-50.0); VENOUS PARTIAL PRESSURE O2 200.7 mmHg (30.0-50.0); VENOUS PH 7.113 UNITS (7.330-7.430); VENOUS STANDARD HCO3 10.6 MMOL/L; VENOUS TOTAL CO2 10.1 MMOL/L (24.0-28.0)
[2024-01-30] MEDS ORDERED: HEPARIN 1,000UNITS/ML 10ML VIAL (FOR RADIOLOGY & DIALYSIS ONLY) IV PRN ×2 (20:00→20:35)
[2024-01-30 20:15] LABS: BLOOD UREA NITROGEN 112 MG/DL (9-23); CALCIUM LEVEL 8.1 MG/DL (8.3-10.6); CARBON DIOXIDE LEVEL < 10.0 MMOL/L (20-31); CHLORIDE LEVEL 114 MMOL/L (98-107); CREATININE FOR GFR 5.48 MG/DL (0.55-1.30); GLUCOSE, FASTING 132 MG/DL (74-106); POTASSIUM SERUM 7.9 MMOL/L (3.5-5.1); SODIUM LEVEL 135 MMOL/L (136-145)
[2024-01-30] MEDS ORDERED: SODIUM CHLORIDE 0.9% 1000ML IV PRN (20:35)
[2024-01-30] MEDS: ROSUVASTATIN 10 MG TAB (CRESTOR) PO SCH (21:14)
[2024-01-30] MEDS: HEPARIN SOD (PORCINE) 5000UNITS/ML 1ML VIAL/SYRINGE SC SCH (22:00)
[2024-01-30 22:19] LABS: HEPATITIS B SURFACE ANTIBODY NEGATIVE (POSITIVE)
[2024-01-30 22:31] LABS: HEPATITIS B SURFACE ANTIGEN NEGATIVE (NEGATIVE)
[2024-01-30] MEDS: HEPARIN 1,000UNITS/ML 10ML VIAL (FOR RADIOLOGY & DIALYSIS ONLY) XX SCH (22:43)
[2024-01-30 22:52] LABS: HEPATITIS B CORE ANTIBODY IGM NEGATIVE (NEGATIVE); HEPATITIS C VIRUS ABY INDEX < 0.02 INDEX (<0.8)
[2024-01-31] VITALS (19 sets, daily range): BP systolic 110–168; BP diastolic 51–67; PULSE 68–72; TEMP 97–99.1; O2SAT 91–98
[2024-01-31] MEDS ORDERED: SODIUM BICARBONATE 150 MEQ in STERILE WATER LITER BAG 1,000 ML IV SCH
[2024-01-31 01:49] LABS: CLOSTRIDIUM DIFFICILE PCR POSITIVE (NEGATIVE)
[2024-01-31] MEDS: SERTRALINE HCL 50 MG TAB PO SCH (04:17)
[2024-01-31 04:33] LABS: HEMATOCRIT 31.3 % (36.0-47.0); HEMOGLOBIN 10.3 g/dl (12.0-15.5); MEAN CORPUSCULAR HGB CONC 32.9 g/dl (32.0-36.5); MEAN CORPUSCULAR VOLUME 85.1 fl (80.0-96.0); PLATELET COUNT, AUTOMATED 194 10^3/uL (150-450); RED BLOOD COUNT 3.68 10^6/uL (4.00-5.40); WHITE BLOOD COUNT 6.3 10^3/uL (4.0-10.0)
[2024-01-31 05:02] LABS: ALBUMIN 2.5 G/DL (3.2-5.2); BILIRUBIN,TOTAL 0.3 MG/DL (0.3-1.2); CREATININE FOR GFR 3.43 MG/DL (0.55-1.30); GLOMERULAR FILTRATION RATE 13.7 (>39); POTASSIUM SERUM 4.1 MMOL/L (3.5-5.1); TOTAL PROTEIN 5.5 G/DL (5.7-8.2)
[2024-01-31] MEDS: LEVOTHYROXINE 137MCG TABLET (0.137MG) PO SCH (05:52)
[2024-01-31 07:02] LABS: VENOUS BASE EXCESS -4.3 (-2.0-2.0); VENOUS HCO3 19.7 MMOL/L (23.0-27.0); VENOUS O2 SATURATION 98.1 % (60.0-80.0); VENOUS PARTIAL PRESSURE CO2 32.5 mmHg (38.0-50.0); VENOUS PARTIAL PRESSURE O2 103.8 mmHg (30.0-50.0); VENOUS STANDARD HCO3 20.9 MMOL/L; VENOUS TOTAL CO2 20.7 MMOL/L (24.0-28.0)
[2024-01-31] MEDS: FIDAXOMICIN 200 MG TAB (DIFICID) PO SCH (09:13)
[2024-01-31] MEDS: allopurinoL 300 MG TAB PO SCH (09:13)
[2024-01-31] MEDS: ASPIRIN 81MG ENTERIC TABLET PO SCH (09:13)
[2024-01-31] MEDS: CARVedilol 3.125 MG TAB PO SCH (21:17)
[2024-01-31 21:39] LABS: CALCIUM LEVEL 7.4 MG/DL (8.3-10.6); CREATININE FOR GFR 3.61 MG/DL (0.55-1.30); GLOMERULAR FILTRATION RATE 12.9 (>39); MAGNESIUM LEVEL 1.8 MG/DL (1.8-2.4); POTASSIUM SERUM 4.2 MMOL/L (3.5-5.1)
[2024-01-31] MEDS: RAMELTEON 8 MG TAB (ROZEREM) PO PRN (22:59)
[2024-02-01 04:00] VITALS: BP 175/74; TEMP 98.1; O2SAT 100
[2024-02-01 05:03] LABS: BASO # 0.1 10^3/uL (0.0-0.2); BASO % 0.8 % (0.0-1.0); EOS # 0.2 10^3/uL (0.0-0.5); EOS % 2.5 % (0.0-3.0); HEMATOCRIT 30.7 % (36.0-47.0); HEMOGLOBIN 10.1 g/dl (12.0-15.5); LYMPH # 0.8 10^3/uL (1.5-5.0); LYMPH % 12.3 % (24.0-44.0); MEAN CORPUSCULAR HEMOGLOBIN 27.7 pg (27.0-33.0); MEAN CORPUSCULAR HGB CONC 32.9 g/dl (32.0-36.5); MEAN CORPUSCULAR VOLUME 84.3 fl (80.0-96.0); MONO # 0.6 10^3/uL (0.0-0.8); MONO % 9.7 % (2.0-8.0); NEUTROPHILS # 4.8 10^3/uL (1.5-8.5); NEUTROPHILS % 73.9 % (36.0-66.0); PLATELET COUNT, AUTOMATED 213 10^3/uL (150-450); RED BLOOD COUNT 3.64 10^6/uL (4.00-5.40); WHITE BLOOD COUNT 6.5 10^3/uL (4.0-10.0)
[2024-02-01 05:37] LABS: ALBUMIN 2.5 G/DL (3.2-5.2); CREATININE FOR GFR 3.52 MG/DL (0.55-1.30); GLOMERULAR FILTRATION RATE 13.3 (>39); MAGNESIUM LEVEL 1.8 MG/DL (1.8-2.4); PHOSPHORUS LEVEL 3.9 MG/DL (2.4-5.1); POTASSIUM SERUM 4.2 MMOL/L (3.5-5.1)
[2024-02-01] MEDS ORDERED: HEPARIN 1,000UNITS/ML 10ML VIAL (FOR RADIOLOGY & DIALYSIS ONLY) IV PRN (06:00)
[2024-02-01] MEDS ORDERED: SODIUM CHLORIDE 0.9% 1000ML IV PRN (06:00)
[2024-02-01] MEDS ORDERED: HEPARIN 1,000UNITS/ML 10ML VIAL (FOR RADIOLOGY & DIALYSIS ONLY) XX SCH (06:00)
[2024-02-01] MEDS ORDERED: ONDANSETRON 4MG 2ML VIAL As Ordered ONE (07:41)
[2024-02-01] MEDS: ONDANSETRON 4MG 2ML VIAL IV PRN (07:50)
[2024-02-01 08:00] VITALS: BP 126/60; TEMP 98.3; O2SAT 97
[2024-02-01 12:39] VITALS: BP 176/71; TEMP 98.6; O2SAT 98
[2024-02-01] MEDS: CETIRIZINE (ZyrTEC) 10 MG TAB PO SCH (13:35)
[2024-02-01] MEDS: SERTRALINE HCL 50 MG TAB PO SCH (13:35)
[2024-02-01 16:00] VITALS: BP 134/57; TEMP 98.2; O2SAT 99
[2024-02-01] MEDS: ACETAMINOPHEN 325 MG TAB PO PRN (16:04)
[2024-02-01 20:00] VITALS: BP 156/67; TEMP 97.8; O2SAT 94
[2024-02-01 22:09] VITALS: BP 148/95; TEMP 97.3; O2SAT 92
[2024-02-02] VITALS: O2SAT 91
[2024-02-02 05:29] LABS: BASO % 0.7 % (0.0-1.0); EOS # 0.2 10^3/uL (0.0-0.5); EOS % 2.8 % (0.0-3.0); HEMATOCRIT 29.5 % (36.0-47.0); HEMOGLOBIN 9.4 g/dl (12.0-15.5); LYMPH # 0.8 10^3/uL (1.5-5.0); MEAN CORPUSCULAR HEMOGLOBIN 27.3 pg (27.0-33.0); MEAN CORPUSCULAR HGB CONC 31.9 g/dl (32.0-36.5); MEAN CORPUSCULAR VOLUME 85.8 fl (80.0-96.0); MONO # 0.6 10^3/uL (0.0-0.8); MONO % 10.4 % (2.0-8.0); NEUTROPHILS # 4.1 10^3/uL (1.5-8.5); NEUTROPHILS % 71.7 % (36.0-66.0); PLATELET COUNT, AUTOMATED 191 10^3/uL (150-450); RED BLOOD COUNT 3.44 10^6/uL (4.00-5.40); WHITE BLOOD COUNT 5.7 10^3/uL (4.0-10.0)
[2024-02-02 05:57] LABS: ALBUMIN 2.3 G/DL (3.2-5.2); CREATININE FOR GFR 2.27 MG/DL (0.55-1.30); GLOMERULAR FILTRATION RATE 22.1 (>39); MAGNESIUM LEVEL 1.8 MG/DL (1.8-2.4); PHOSPHORUS LEVEL 3.5 MG/DL (2.4-5.1)
[2024-02-02] MEDS ORDERED: LIDOCAINE 1% SDV 5ML VIAL SC PRN (06:00)
[2024-02-02] MEDS ORDERED: SODIUM CHLORIDE 0.9% 1000ML IV PRN (06:00)
[2024-02-02] MEDS ORDERED: HEPARIN 1,000UNITS/ML 10ML VIAL (FOR RADIOLOGY & DIALYSIS ONLY) XX SCH (06:00)
[2024-02-02] MEDS ORDERED: HEPARIN 1,000UNITS/ML 10ML VIAL (FOR RADIOLOGY & DIALYSIS ONLY) IV PRN (06:00)
[2024-02-02 06:03] VITALS: BP 167/64; TEMP 97.2; O2SAT 95
[2024-02-02] MEDS: CARVedilol 3.125 MG TAB PO ONE (10:42)
[2024-02-02 12:00] VITALS: BP 172/72; TEMP 97.3; O2SAT 94
[2024-02-02 19:43] VITALS: BP 153/56; TEMP 97.3; O2SAT 92
[2024-02-02] MEDS: CARVedilol 12.5 MG TAB PO SCH (20:59)
[2024-02-03 05:23] VITALS: BP 157/67; TEMP 97.2; O2SAT 94
[2024-02-03 06:29] LABS: BASO % 0.5 % (0.0-1.0); EOS # 0.2 10^3/uL (0.0-0.5); EOS % 3.4 % (0.0-3.0); HEMATOCRIT 29.9 % (36.0-47.0); HEMOGLOBIN 9.6 g/dl (12.0-15.5); LYMPH # 0.6 10^3/uL (1.5-5.0); LYMPH % 10.1 % (24.0-44.0); MEAN CORPUSCULAR HEMOGLOBIN 28.4 pg (27.0-33.0); MEAN CORPUSCULAR HGB CONC 32.1 g/dl (32.0-36.5); MEAN CORPUSCULAR VOLUME 88.5 fl (80.0-96.0); MONO # 0.6 10^3/uL (0.0-0.8); NEUTROPHILS # 4.7 10^3/uL (1.5-8.5); PLATELET COUNT, AUTOMATED 188 10^3/uL (150-450); RED BLOOD COUNT 3.38 10^6/uL (4.00-5.40); WHITE BLOOD COUNT 6.2 10^3/uL (4.0-10.0)
[2024-02-03 06:54] LABS: ALBUMIN 2.2 G/DL (3.2-5.2); CALCIUM LEVEL 7.6 MG/DL (8.3-10.6); CREATININE FOR GFR 2.56 MG/DL (0.55-1.30); GLOMERULAR FILTRATION RATE 19.2 (>39); MAGNESIUM LEVEL 1.8 MG/DL (1.8-2.4); PHOSPHORUS LEVEL 3.9 MG/DL (2.4-5.1); POTASSIUM SERUM 4.2 MMOL/L (3.5-5.1)
[2024-02-03] MEDS: SERTRALINE 100 MG TAB PO SCH (08:20)
[2024-02-03] MEDS: CARVedilol 12.5 MG TAB PO ONE (09:00)
[2024-02-03 12:00] VITALS: BP 167/72; TEMP 97.3; O2SAT 94
[2024-02-03 20:35] VITALS: BP 176/70; TEMP 97.7; O2SAT 93
[2024-02-03] MEDS: CARVedilol 12.5 MG TAB PO SCH (20:54)
[2024-02-03] MEDS: ALPRAZolam 0.25 MG TAB PO SCH (20:55)
[2024-02-03 21:53] VITALS: BP 175/69; O2SAT 93
[2024-02-04 03:50] VITALS: BP 180/73; TEMP 97.2; O2SAT 99
[2024-02-04] MEDS: LISINOPRIL *2.5 MG* TAB PO SCH (04:43)
[2024-02-04] MEDS ORDERED: HEPARIN 1,000UNITS/ML 10ML VIAL (FOR RADIOLOGY & DIALYSIS ONLY) IV PRN (06:00)
[2024-02-04] MEDS ORDERED: LIDOCAINE 1% SDV 5ML VIAL SC PRN (06:00)
[2024-02-04] MEDS ORDERED: SODIUM CHLORIDE 0.9% 1000ML IV PRN (06:00)
[2024-02-04 06:05] VITALS: BP 184/79
[2024-02-04] MEDS: CARVedilol 12.5 MG TAB PO SCH (08:47)
[2024-02-04] MEDS ORDERED: HEPARIN 1,000UNITS/ML 10ML VIAL (FOR RADIOLOGY & DIALYSIS ONLY) As Ordered ONE (09:47)
[2024-02-04] MEDS ORDERED: LIDOCAINE 1% MDV 20ML VIAL As Ordered ONE (09:47)
[2024-02-04] MEDS ORDERED: fentaNYL 100 MCG/2 ML INJECTION As Ordered ONE (10:30)
[2024-02-04] MEDS ORDERED: MIDAZOLAM INJ 2MG/2ML VIAL As Ordered ONE (10:31)
[2024-02-04] MEDS ORDERED: LABETALOL 100MG/20ML VIAL As Ordered ONE (10:43)
[2024-02-04] MEDS ORDERED: hydrALAZINE 20MG/ML 1ML VIAL As Ordered ONE (10:43)
[2024-02-04 12:00] VITALS: BP 179/71; TEMP 97.6; O2SAT 94
[2024-02-04] MEDS: DARBEPOETIN 100MCG/0.5ML *DIALYSIS* SYRINGE IV SCH (12:12)
[2024-02-04] MEDS: HEPARIN 1,000UNITS/ML 10ML VIAL (FOR RADIOLOGY & DIALYSIS ONLY) XX SCH (14:37)
[2024-02-04] MEDS: DOCUSATE SODIUM 100MG CAPSULE PO SCH (20:11)
[2024-02-04] MEDS: MIRALAX *UNIT DOSE* 17GM PACKET PO PRN (20:12)
[2024-02-04 20:15] VITALS: BP 182/84; TEMP 97.5; O2SAT 94
[2024-02-05 03:06] VITALS: BP 187/83; TEMP 97.7; O2SAT 93
[2024-02-05] MEDS ORDERED: HEPARIN 1,000UNITS/ML 10ML VIAL (FOR RADIOLOGY & DIALYSIS ONLY) IV PRN (06:00)
[2024-02-05] MEDS ORDERED: HEPARIN 1,000UNITS/ML 10ML VIAL (FOR RADIOLOGY & DIALYSIS ONLY) XX SCH (06:00)
[2024-02-05] MEDS ORDERED: LIDOCAINE 1% SDV 5ML VIAL SC PRN (06:00)
[2024-02-05] MEDS ORDERED: SODIUM CHLORIDE 0.9% 1000ML IV PRN (06:00)
[2024-02-05 06:07] VITALS: BP 179/82; TEMP 97.7; O2SAT 93
[2024-02-05 08:00] VITALS: BP 158/64
[2024-02-05 12:25] VITALS: BP 198/74; TEMP 97.5; O2SAT 95
[2024-02-05] MEDS: CARVedilol 12.5 MG TAB PO ONE (13:14)
[2024-02-05] MEDS: LISINOPRIL *2.5 MG* TAB PO ONE ×2 (13:15)
[2024-02-05 14:09] VITALS: BP 146/50
[2024-02-05 20:53] VITALS: BP 176/62; TEMP 97.9; O2SAT 93
[2024-02-05] MEDS: CARVedilol 12.5 MG TAB PO SCH (21:41)
[2024-02-06 04:13] VITALS: BP 192/74; TEMP 97.7; O2SAT 90
[2024-02-06] MEDS: **hydrALAZINE HCL** 25 MG TAB PO PRN (04:38)
[2024-02-06] MEDS ORDERED: SODIUM CHLORIDE 0.9% 1000ML IV PRN (06:00)
[2024-02-06] MEDS ORDERED: HEPARIN 1,000UNITS/ML 10ML VIAL (FOR RADIOLOGY & DIALYSIS ONLY) XX SCH (06:00)
[2024-02-06] MEDS ORDERED: HEPARIN 1,000UNITS/ML 10ML VIAL (FOR RADIOLOGY & DIALYSIS ONLY) IV PRN (06:00)
[2024-02-06] MEDS ORDERED: LIDOCAINE 1% SDV 5ML VIAL SC PRN (06:00)
[2024-02-06 14:00] VITALS: BP 172/68; TEMP 97.7; O2SAT 94
[2024-02-06] MEDS ORDERED: lisinopriL 5 MG TAB PO SCH (16:00)
[2024-02-06] MEDS: LEVEMIR (INSULIN DETEMIR) 1 UNITS/0.01ML SC SCH (21:00)
[2024-02-06] MEDS: guanFACINE 1 MG TAB PO SCH (22:02)
[2024-02-06] MEDS: NYSTATIN 100,000 UNITS/GM TOPICAL PWD 15GM TOP PRN (23:58)
[2024-02-07 00:48] VITALS: O2SAT 92
[2024-02-07 02:15] VITALS: BP 172/74
[2024-02-07] MEDS: **hydrALAZINE** 10 MG TAB PO ONE (02:46)
[2024-02-07 04:52] VITALS: BP 173/73; TEMP 97.3; O2SAT 92
[2024-02-07 05:32] VITALS: O2SAT 94
[2024-02-07 05:33] LABS: HEMATOCRIT 31.1 % (36.0-47.0); HEMOGLOBIN 9.7 g/dl (12.0-15.5); MEAN CORPUSCULAR HEMOGLOBIN 27.8 pg (27.0-33.0); MEAN CORPUSCULAR HGB CONC 31.2 g/dl (32.0-36.5); MEAN CORPUSCULAR VOLUME 89.1 fl (80.0-96.0); PLATELET COUNT, AUTOMATED 128 10^3/uL (150-450); RED BLOOD COUNT 3.49 10^6/uL (4.00-5.40); WHITE BLOOD COUNT 5.2 10^3/uL (4.0-10.0)
[2024-02-07 05:56] LABS: ALBUMIN 2.2 G/DL (3.2-5.2); BILIRUBIN,TOTAL 0.3 MG/DL (0.3-1.2); CALCIUM LEVEL 7.4 MG/DL (8.3-10.6); CREATININE FOR GFR 1.39 MG/DL (0.55-1.30); GLOMERULAR FILTRATION RATE 38.9 (>39); POTASSIUM SERUM 3.6 MMOL/L (3.5-5.1); TOTAL PROTEIN 5.2 G/DL (5.7-8.2)
[2024-02-07 08:00] VITALS: BP 167/70; TEMP 97.2; O2SAT 93
[2024-02-07 13:15] VITALS: BP 153/61; TEMP 97.3; O2SAT 93
[2024-02-08 04:00] VITALS: BP 180/72; TEMP 97.3; O2SAT 91
[2024-02-08 04:30] VITALS: BP 166/74
[2024-02-08] MEDS ORDERED: HEPARIN 1,000UNITS/ML 10ML VIAL (FOR RADIOLOGY & DIALYSIS ONLY) IV PRN (06:00)
[2024-02-08] MEDS ORDERED: SODIUM CHLORIDE 0.9% 1000ML IV PRN (06:00)
[2024-02-08] MEDS ORDERED: LIDOCAINE 1% SDV 5ML VIAL SC PRN (06:00)
[2024-02-08] MEDS: **hydrALAZINE** 50 MG TAB PO SCH (07:35)
[2024-02-08] MEDS: HEPARIN 1,000UNITS/ML 10ML VIAL (FOR RADIOLOGY & DIALYSIS ONLY) XX SCH (08:42)
[2024-02-08 23:43] VITALS: BP 154/72
[2024-02-09] VITALS (12 sets, daily range): BP systolic 128–197; BP diastolic 49–88; TEMP 97.3–98.6; O2SAT 85–96
[2024-02-09] MEDS: **hydrALAZINE HCL** 25 MG TAB PO ONE (03:51)
[2024-02-09] MEDS: **hydrALAZINE** 50 MG TAB PO SCH (09:05)
[2024-02-09 09:25] LABS: BASO # 0.1 10^3/uL (0.0-0.2); BASO % 1.2 % (0.0-1.0); EOS # 0.1 10^3/uL (0.0-0.5); EOS % 2.3 % (0.0-3.0); HEMOGLOBIN 11.3 g/dl (12.0-15.5); LYMPH # 0.4 10^3/uL (1.5-5.0); LYMPH % 6.7 % (24.0-44.0); MEAN CORPUSCULAR HEMOGLOBIN 28.1 pg (27.0-33.0); MEAN CORPUSCULAR HGB CONC 31.4 g/dl (32.0-36.5); MEAN CORPUSCULAR VOLUME 89.6 fl (80.0-96.0); MONO # 0.4 10^3/uL (0.0-0.8); NEUTROPHILS % 83.5 % (36.0-66.0); PLATELET COUNT, AUTOMATED 155 10^3/uL (150-450); RED BLOOD COUNT 4.02 10^6/uL (4.00-5.40)
[2024-02-09 09:26] LABS: CALCIUM LEVEL 8.4 MG/DL (8.3-10.6); CREATININE FOR GFR 1.5 MG/DL (0.55-1.30); GLOMERULAR FILTRATION RATE 35.7 (>39); MAGNESIUM LEVEL 1.8 MG/DL (1.8-2.4); POTASSIUM SERUM 3.9 MMOL/L (3.5-5.1)
[2024-02-09] MEDS: ONDANSETRON 4MG ORAL DISINTEGRATING TAB PO ONE (21:20)
[2024-02-10 04:56] VITALS: BP 166/67; TEMP 97.5; O2SAT 97
[2024-02-10 12:00] VITALS: BP 147/95; TEMP 97.5; O2SAT 91
[2024-02-10 14:44] VITALS: BP 144/50; TEMP 97.9; O2SAT 93
[2024-02-10 21:21] VITALS: BP 188/77; TEMP 97.7; O2SAT 94
[2024-02-10 23:30] VITALS: BP 141/51
[2024-02-11] VITALS (7 sets, daily range): BP systolic 153–176; BP diastolic 55–74; TEMP 97.5–98.6; O2SAT 87–97
[2024-02-11] MEDS ORDERED: HEPARIN 1,000UNITS/ML 10ML VIAL (FOR RADIOLOGY & DIALYSIS ONLY) IV PRN (06:00)
[2024-02-11] MEDS ORDERED: SODIUM CHLORIDE 0.9% 1000ML IV PRN (06:00)
[2024-02-11 06:30] LABS: HEMOGLOBIN 10.1 g/dl (12.0-15.5); MEAN CORPUSCULAR HEMOGLOBIN 27.5 pg (27.0-33.0); MEAN CORPUSCULAR HGB CONC 30.6 g/dl (32.0-36.5); MEAN CORPUSCULAR VOLUME 89.9 fl (80.0-96.0); PLATELET COUNT, AUTOMATED 129 10^3/uL (150-450); RED BLOOD COUNT 3.67 10^6/uL (4.00-5.40)
[2024-02-11 06:51] LABS: ALBUMIN 2.5 G/DL (3.2-5.2); CALCIUM LEVEL 7.9 MG/DL (8.3-10.6); CREATININE FOR GFR 2.09 MG/DL (0.55-1.30); GLOMERULAR FILTRATION RATE 24.3 (>39); PHOSPHORUS LEVEL 3.4 MG/DL (2.4-5.1); POTASSIUM SERUM 4.1 MMOL/L (3.5-5.1)
[2024-02-11] MEDS: HEPARIN 1,000UNITS/ML 10ML VIAL (FOR RADIOLOGY & DIALYSIS ONLY) XX SCH (08:41)
[2024-02-11] MEDS: BISACODYL 5MG TAB PO PRN (20:33)
[2024-02-11] MEDS: LACTULOSE 20GM/30ML SYRUP UDC PO PRN (20:33)
[2024-02-12 03:15] VITALS: BP 190/70; TEMP 97.9; O2SAT 99
[2024-02-12 12:00] VITALS: BP 180/64; TEMP 97.9; O2SAT 95
[2024-02-12 19:55] VITALS: BP 182/66; TEMP 97.9; O2SAT 97
[2024-02-13 03:40] VITALS: BP 186/72; TEMP 97.5; O2SAT 93
[2024-02-13] MEDS: ONDANSETRON 4MG ORAL DISINTEGRATING TAB PO PRN (03:52)
[2024-02-13 05:28] LABS: EOS # 0.1 10^3/uL (0.0-0.5); EOS % 1.9 % (0.0-3.0); HEMATOCRIT 31.5 % (36.0-47.0); LYMPH # 0.6 10^3/uL (1.5-5.0); LYMPH % 13.6 % (24.0-44.0); MEAN CORPUSCULAR HEMOGLOBIN 28.4 pg (27.0-33.0); MEAN CORPUSCULAR HGB CONC 31.7 g/dl (32.0-36.5); MEAN CORPUSCULAR VOLUME 89.5 fl (80.0-96.0); MONO # 0.6 10^3/uL (0.0-0.8); MONO % 14.3 % (2.0-8.0); NEUTROPHILS # 2.9 10^3/uL (1.5-8.5); NEUTROPHILS % 68.7 % (36.0-66.0); PLATELET COUNT, AUTOMATED 149 10^3/uL (150-450); RED BLOOD COUNT 3.52 10^6/uL (4.00-5.40); WHITE BLOOD COUNT 4.2 10^3/uL (4.0-10.0)
[2024-02-13 05:41] LABS: INR 1.19; PARTIAL THROMBOPLASTIN TIME 32.8 SECONDS (24.8-34.2); PROTHROMBIN TIME 14.7 SECONDS (12.5-14.5)
[2024-02-13 05:53] LABS: ALBUMIN 2.4 G/DL (3.2-5.2); BILIRUBIN,DIRECT 0.1 MG/DL (<0.4); BILIRUBIN,TOTAL 0.3 MG/DL (0.3-1.2); CALCIUM LEVEL 8.2 MG/DL (8.3-10.6); CREATININE FOR GFR 1.61 MG/DL (0.55-1.30); GLOMERULAR FILTRATION RATE 32.9 (>39); MAGNESIUM LEVEL 1.6 MG/DL (1.8-2.4); PHOSPHORUS LEVEL 3.2 MG/DL (2.4-5.1); POTASSIUM SERUM 3.9 MMOL/L (3.5-5.1); TOTAL PROTEIN 5.3 G/DL (5.7-8.2)
[2024-02-13] MEDS ORDERED: SODIUM CHLORIDE 0.9% 1000ML IV PRN (06:00)
[2024-02-13] MEDS ORDERED: HEPARIN 1,000UNITS/ML 10ML VIAL (FOR RADIOLOGY & DIALYSIS ONLY) IV PRN (06:00)
[2024-02-13] MEDS: METOCLOPRAMIDE 10MG TAB PO ONE (08:20)
[2024-02-13] MEDS: HEPARIN 1,000UNITS/ML 10ML VIAL (FOR RADIOLOGY & DIALYSIS ONLY) XX SCH (14:38)
[2024-02-14 03:30] VITALS: BP 176/74; TEMP 97.3; O2SAT 87
[2024-02-14 08:12] VITALS: BP 209/91
[2024-02-14 09:32] VITALS: BP 128/52
[2024-02-14] MEDS ORDERED: HYDR100T26 PO (10:13)
[2024-02-14] MEDS ORDERED: LISI40TA4 PO (10:13)
== END 2024-02-14 12:58 | disposition home health service (06) | DRG 674 ==
LOC: M ED 11:16 → EDBD 11:16 → M ED INP 13:59 → M ICU 16:16 → M MSPAV 02-01 21:38
PROVIDERS: ADMIT Internal Medicine Pulmonary Disease; ATTEND Internal Medicine
PROC: 5A1D70Z Performance of Urinary Filtration, Intermittent, Less than 6 Hours Per Day (ICD-10-PCS; 2024-01-30)
PROC: 02HV33Z Insertion of Infusion Device into Superior Vena Cava, Percutaneous Approach (ICD-10-PCS; 2024-01-30)
PROC: 0JH63XZ Insertion of Tunneled Vascular Access Device into Chest Subcutaneous Tissue and Fascia, Percutaneous Approach (ICD-10-PCS; principal; 2024-02-04 10:30)
DX: N17.9 Acute kidney failure, unspecified (principal); A04.72 Enterocolitis due to Clostridium difficile, not specified as recurrent; I50.32 Chronic diastolic (congestive) heart failure; I13.2 Hypertensive heart and chronic kidney disease with heart failure and with stage 5 chronic kidney disease, or end stage renal disease; E87.20 Acidosis, unspecified; Z66 Do not resuscitate; E87.5 Hyperkalemia; N18.6 End stage renal disease; E11.22 Type 2 diabetes mellitus with diabetic chronic kidney disease; E03.9 Hypothyroidism, unspecified; E87.70 Fluid overload, unspecified; G47.33 Obstructive sleep apnea (adult) (pediatric); K59.00 Constipation, unspecified; E78.00 Pure hypercholesterolemia, unspecified; F32.A Depression, unspecified; M10.9 Gout, unspecified; Z90.49 Acquired absence of other specified parts of digestive tract; Z90.79 Acquired absence of other genital organ(s); Z79.82 Long term (current) use of aspirin; Z79.4 Long term (current) use of insulin; Z79.890 Hormone replacement therapy; Z79.899 Other long term (current) drug therapy; Z88.5 Allergy status to narcotic agent; Z88.8 Allergy status to other drugs, medicaments and biological substances; D63.8 Anemia in other chronic diseases classified elsewhere

== ENCOUNTER 2024-03-04 12:34 | Emergency (ER) | payer MEDICARE ==
[~2024-03-04] VITALS: Ht 142.2 cm; Wt 65.4 kg
[~2024-03-04 12:34] MED LIST changes: +CVS1CAP2 PO; +HYDR100T26 PO; +LEVA15HF2 INH; -LEVAINH INH; +LISI40TA4 PO; +MINO10TA PO
[2024-03-04 13:04] LABS: HEMATOCRIT 36.9 % (36.0-47.0); HEMOGLOBIN 11.6 g/dl (12.0-15.5); MEAN CORPUSCULAR HEMOGLOBIN 28.9 pg (27.0-33.0); MEAN CORPUSCULAR HGB CONC 31.4 g/dl (32.0-36.5); PLATELET COUNT, AUTOMATED 142 10^3/uL (150-450); RED BLOOD COUNT 4.01 10^6/uL (4.00-5.40); WHITE BLOOD COUNT 5.4 10^3/uL (4.0-10.0)
[2024-03-04 13:39] LABS: CALCIUM LEVEL 8.5 MG/DL (8.3-10.6); CREATININE FOR GFR 1.59 MG/DL (0.55-1.30); GLOMERULAR FILTRATION RATE 33.3 (>39); POTASSIUM SERUM 3.8 MMOL/L (3.5-5.1)
[2024-03-04] MEDS ORDERED: LISI40TA4 PO (14:48)
[2024-03-04] MEDS ORDERED: HOME MED LIST COMPLETE! XX SCH (14:50)
[2024-03-04 16:22] VITALS: O2SAT 90
[2024-03-04 16:30] VITALS: BP 148/65
[2024-03-04 16:37] VITALS: TEMP 98.2
== END 2024-03-04 16:47 | disposition home or self-care (01) ==
LOC: M ED 12:34 → EDBD 12:34 → M ED 16:47
DX: I95.1 Orthostatic hypotension (principal); N18.6 End stage renal disease; E11.9 Type 2 diabetes mellitus without complications; I10 Essential (primary) hypertension; E78.5 Hyperlipidemia, unspecified; G47.33 Obstructive sleep apnea (adult) (pediatric); Z90.49 Acquired absence of other specified parts of digestive tract; Z88.5 Allergy status to narcotic agent; Z88.8 Allergy status to other drugs, medicaments and biological substances; Z86.79 Personal history of other diseases of the circulatory system; Z79.1 Long term (current) use of non-steroidal anti-inflammatories (NSAID); Z79.4 Long term (current) use of insulin; Z79.82 Long term (current) use of aspirin; Z79.811 Long term (current) use of aromatase inhibitors; Z79.899 Other long term (current) drug therapy

== ENCOUNTER → 2024-04-01 | Outpatient (CLI) | payer MEDICARE ==
[~2024-04-01] MED LIST changes: +LOSA100T46 PO; +POTA-298 PO; +PRAZ2CAP PO
== END ==
LOC: M RAD 11:44
PROVIDERS: ATTEND Nurse Practitioner Family
DX: S09.90XA Unspecified injury of head, initial encounter (principal); R29.6 Repeated falls; W18.30XA Fall on same level, unspecified, initial encounter; Y92.009 Unspecified place in unspecified non-institutional (private) residence as the place of occurrence of the external cause

== ENCOUNTER 2024-04-03 11:17 | Inpatient (IN) | payer MEDICARE ==
[~2024-04-03] VITALS: Ht 142.2 cm; Wt 62.8 kg
[~2024-04-03 11:17] MED LIST changes: -LOSA100T46 PO; -POTA-298 PO; -PRAZ2CAP PO
[2024-04-03] MEDS ORDERED: PRAZ2CAP PO (11:36)
[2024-04-03] MEDS ORDERED: LOSA100T46 PO (11:36)
[2024-04-03] MEDS ORDERED: POTA-298 PO (11:36)
[2024-04-03] MEDS: NS 500 ML IV ONE ×2 (13:06→18:30)
[2024-04-03 13:33] LABS: BASO # 0.1 10^3/uL (0.0-0.2); BASO % 1.3 % (0.0-1.0); EOS # 0.1 10^3/uL (0.0-0.5); EOS % 1.8 % (0.0-3.0); HEMATOCRIT 33.1 % (36.0-47.0); HEMOGLOBIN 10.3 g/dl (12.0-15.5); LYMPH # 0.6 10^3/uL (1.5-5.0); LYMPH % 14.3 % (24.0-44.0); MEAN CORPUSCULAR HEMOGLOBIN 29.7 pg (27.0-33.0); MEAN CORPUSCULAR HGB CONC 31.1 g/dl (32.0-36.5); MEAN CORPUSCULAR VOLUME 95.4 fl (80.0-96.0); MONO # 0.4 10^3/uL (0.0-0.8); MONO % 9.2 % (2.0-8.0); NEUTROPHILS # 2.9 10^3/uL (1.5-8.5); NEUTROPHILS % 73.1 % (36.0-66.0); PLATELET COUNT, AUTOMATED 188 10^3/uL (150-450); RED BLOOD COUNT 3.47 10^6/uL (4.00-5.40); WHITE BLOOD COUNT 3.9 10^3/uL (4.0-10.0)
[2024-04-03 14:03] LABS: CK-MB VALUE MASS < 1.0 NG/ML (<3.6)
[2024-04-03 14:07] LABS: ALBUMIN 3.3 G/DL (3.2-5.2); ALKALINE PHOSPHATASE 65 U/L (35-104); ALT/SGPT 23 U/L (7.0-40); AST/SGOT 18 U/L (<34); BILIRUBIN,DIRECT < 0.1 MG/DL (<0.4); BILIRUBIN,TOTAL 0.3 MG/DL (0.3-1.2); BLOOD UREA NITROGEN 22 MG/DL (9-23); CALCIUM LEVEL 9.4 MG/DL (8.3-10.6); CARBON DIOXIDE LEVEL 31 MMOL/L (20-31); CHLORIDE LEVEL 104 MMOL/L (98-107); GLOMERULAR FILTRATION RATE 27.1 (>32); GLUCOSE, FASTING 52 MG/DL (74-106); POTASSIUM SERUM 4.4 MMOL/L (3.5-5.1); SODIUM LEVEL 141 MMOL/L (136-145); THYROID STIMULATING HORMONE 2.511 uIU/ML (0.55-4.78); TOTAL PROTEIN 6.6 G/DL (5.7-8.2)
[2024-04-03 14:08] LABS: FREE T4 1.11 NG/DL (0.89-1.76)
[2024-04-03] MEDS: **hydrALAZINE** 50 MG TAB PO ONE (14:09)
[2024-04-03 14:13] LABS: CPK CREATINE PHOSPHOKINASE 41 U/L (34-145); MB/CK RELATIVE INDEX 2.43 (< OR =4)
[2024-04-03 14:53] LABS: CK-MB VALUE MASS < 1.0 NG/ML (<3.6)
[2024-04-03 15:00] LABS: CPK CREATINE PHOSPHOKINASE 35 U/L (34-145); MB/CK RELATIVE INDEX 2.85 (< OR =4)
[2024-04-03 16:50] LABS: CK-MB VALUE MASS < 1.0 NG/ML (<3.6)
[2024-04-03 16:51] LABS: CPK CREATINE PHOSPHOKINASE 32 U/L (34-145); MB/CK RELATIVE INDEX 3.12 (< OR =4)
[2024-04-03] MEDS ORDERED: MOM 30ML SUSPENSION UDC PO PRN (18:20)
[2024-04-03] MEDS ORDERED: DEXTROSE 50% 50ML SYRINGE IV PRN (18:25)
[2024-04-03] MEDS ORDERED: GLUCAGON INJ 1MG VIAL SC PRN (18:25)
[2024-04-03] MEDS ORDERED: GLUCOSE 4 GM CHEW PO PRN (18:25)
[2024-04-03] MEDS ORDERED: HYDR50TA46 PO (18:25)
[2024-04-03] MEDS ORDERED: HOME MED LIST COMPLETE! XX SCH (18:30)
[2024-04-03] MEDS: ROSUVASTATIN 10 MG TAB (CRESTOR) PO SCH (20:34)
[2024-04-03] MEDS: INSULIN LISPRO (NovoLOG) PER UNIT SC SCH (20:35)
[2024-04-03] MEDS: ACETAMINOPHEN 650MG ER TAB (TYLENOL ARTHRITIS) PO SCH (20:35)
[2024-04-03] MEDS: DOCUSATE SODIUM 100MG CAPSULE PO SCH (20:35)
[2024-04-03] MEDS: SERTRALINE HCL 50 MG TAB PO SCH (20:35)
[2024-04-03] MEDS: HEPARIN SOD (PORCINE) 5000UNITS/ML 1ML VIAL/SYRINGE SC SCH (22:42)
[2024-04-04] MEDS: LEVOTHYROXINE 137MCG TABLET (0.137MG) PO SCH (06:09)
[2024-04-04 06:21] LABS: HEMATOCRIT 30.6 % (36.0-47.0); HEMOGLOBIN 9.6 g/dl (12.0-15.5); MEAN CORPUSCULAR HEMOGLOBIN 30.2 pg (27.0-33.0); MEAN CORPUSCULAR HGB CONC 31.4 g/dl (32.0-36.5); MEAN CORPUSCULAR VOLUME 96.2 fl (80.0-96.0); PLATELET COUNT, AUTOMATED 172 10^3/uL (150-450); RED BLOOD COUNT 3.18 10^6/uL (4.00-5.40); WHITE BLOOD COUNT 3.7 10^3/uL (4.0-10.0)
[2024-04-04 06:43] LABS: CALCIUM LEVEL 8.4 MG/DL (8.3-10.6); CREATININE FOR GFR 2.27 MG/DL (0.55-1.30); GLOMERULAR FILTRATION RATE 22.1 (>32); POTASSIUM SERUM 4.5 MMOL/L (3.5-5.1)
[2024-04-04] MEDS: **hydrALAZINE** 10 MG TAB PO ONE (07:34)
[2024-04-04] MEDS: INSULIN LISPRO (NovoLOG) PER UNIT SC SCH (08:19)
[2024-04-04] MEDS ORDERED: VITAMIN D 1,000 INTERNATIONAL UNITS TABLET PO SCH (09:00)
[2024-04-04] MEDS ORDERED: POTASSIUM CHLORIDE 10MEQ SR TABLET PO SCH (09:00)
[2024-04-04] MEDS ORDERED: dilTIAZem 120MG **CD** CAPSULE PO SCH (09:00)
[2024-04-04] MEDS ORDERED: **hydrALAZINE** 50 MG TAB PO SCH (09:00)
[2024-04-04] MEDS ORDERED: LIDOCAINE 1% SDV 5ML VIAL SC PRN (10:25)
[2024-04-04] MEDS ORDERED: HEPARIN 1,000UNITS/ML 10ML VIAL (FOR RADIOLOGY & DIALYSIS ONLY) IV PRN (10:25)
[2024-04-04] MEDS ORDERED: SODIUM CHLORIDE 0.9% 1000 ML IV PRN (10:25)
[2024-04-04] MEDS: CETIRIZINE (ZyrTEC) 10 MG TAB PO SCH (10:26)
[2024-04-04] MEDS: CARVedilol 12.5 MG TAB PO SCH (10:26)
[2024-04-04] MEDS: SERTRALINE 100 MG TAB PO SCH (10:27)
[2024-04-04] MEDS: LOSARTAN 50MG TABLET PO SCH (10:27)
[2024-04-04] MEDS: allopurinoL 300 MG TAB PO SCH (10:27)
[2024-04-04] MEDS: ASPIRIN 81MG ENTERIC TABLET PO SCH (10:27)
[2024-04-04] MEDS: HEPARIN 1,000UNITS/ML 10ML VIAL (FOR RADIOLOGY & DIALYSIS ONLY) XX SCH (15:34)
[2024-04-04 16:20] VITALS: BP 127/66; TEMP 98.6; O2SAT 97
[2024-04-04] MEDS: ACETAMINOPHEN 325 MG TAB PO PRN (16:42)
[2024-04-04] MEDS: CALCITRIOL 0.25 MCG CAP (S0169) PO SCH (16:43)
[2024-04-04] MEDS: dilTIAZem 120MG **CD** CAPSULE PO SCH (17:01)
[2024-04-04 20:00] VITALS: BP 160/51; TEMP 98.6; O2SAT 96
[2024-04-05 04:00] VITALS: BP 194/73; TEMP 97.5; O2SAT 94
[2024-04-05 08:23] VITALS: BP_SYST 179; BP_SYST 190; BP_SYST 195; BP_DIAS 82; BP_DIAS 88; BP_DIAS 90
[2024-04-05] MEDS: **hydrALAZINE** 10 MG TAB PO ONE (11:51)
[2024-04-05] MEDS: LIDOCAINE 5% (LIDODERM) PATCH TD ONE (11:51)
[2024-04-05 12:00] VITALS: BP 150/60; TEMP 97.3; O2SAT 97
[2024-04-05 21:40] VITALS: BP 198/72; TEMP 97.5; O2SAT 96
[2024-04-05] MEDS: PRAZOSIN 1 MG CAP PO SCH (21:45)
[2024-04-05] MEDS: **hydrALAZINE** 10 MG TAB PO SCH (21:45)
[2024-04-06 03:00] VITALS: BP 164/66; TEMP 98.1; O2SAT 93
[2024-04-06 07:14] LABS: CALCIUM LEVEL 8.7 MG/DL (8.3-10.6); CREATININE FOR GFR 1.83 MG/DL (0.55-1.30); GLOMERULAR FILTRATION RATE 28.3 (>32); MAGNESIUM LEVEL 1.8 MG/DL (1.8-2.4)
[2024-04-06] MEDS: LIDOCAINE 5% (LIDODERM) PATCH TD SCH (09:52)
[2024-04-06 12:00] VITALS: BP 160/80; TEMP 97.7; O2SAT 93
[2024-04-06] MEDS: **hydrALAZINE HCL** 25 MG TAB PO SCH ×2 (15:20→21:33)
[2024-04-06 20:14] VITALS: BP 164/68; TEMP 97.5; O2SAT 94
[2024-04-07 04:53] VITALS: BP 168/68; TEMP 97.7; O2SAT 93
[2024-04-07] MEDS ORDERED: SODIUM CHLORIDE 0.9% 1000 ML IV PRN (06:00)
[2024-04-07] MEDS ORDERED: HEPARIN 1,000UNITS/ML 10ML VIAL (FOR RADIOLOGY & DIALYSIS ONLY) IV PRN (06:00)
[2024-04-07 06:23] LABS: CALCIUM LEVEL 8.7 MG/DL (8.3-10.6); CREATININE FOR GFR 2.01 MG/DL (0.55-1.30); GLOMERULAR FILTRATION RATE 25.4 (>32); MAGNESIUM LEVEL 1.7 MG/DL (1.8-2.4)
[2024-04-07] MEDS: MAGNESIUM OXIDE 400MG TAB (MAG-OX) PO ONE (07:54)
[2024-04-07] MEDS: HEPARIN 1,000UNITS/ML 10ML VIAL (FOR RADIOLOGY & DIALYSIS ONLY) XX SCH (09:26)
[2024-04-07] MEDS: DARBEPOETIN 100MCG/0.5ML *DIALYSIS* SYRINGE IV SCH (09:26)
[2024-04-07 12:00] VITALS: BP 149/70; TEMP 97.2; O2SAT 97
[2024-04-07 19:37] VITALS: BP 136/52; TEMP 97.5; O2SAT 95
[2024-04-08 04:00] VITALS: BP 190/72; TEMP 97.7; O2SAT 95
[2024-04-08 06:13] LABS: CREATININE FOR GFR 1.6 MG/DL (0.55-1.30); MAGNESIUM LEVEL 1.8 MG/DL (1.8-2.4); POTASSIUM SERUM 4.1 MMOL/L (3.5-5.1)
[2024-04-08 12:00] VITALS: BP 138/68; TEMP 96.8; O2SAT 96
[2024-04-08 21:00] VITALS: BP 142/72; TEMP 98.8; O2SAT 96
[2024-04-09 04:42] VITALS: BP 186/62; TEMP 97.2; O2SAT 96
[2024-04-09 05:21] VITALS: BP 173/65
[2024-04-09 05:22] VITALS: BP 160/76
[2024-04-09 05:45] VITALS: BP 160/76
[2024-04-09] MEDS ORDERED: HEPARIN 1,000UNITS/ML 10ML VIAL (FOR RADIOLOGY & DIALYSIS ONLY) IV PRN (06:00)
[2024-04-09] MEDS ORDERED: SODIUM CHLORIDE 0.9% 1000 ML IV PRN (06:00)
[2024-04-09 06:37] LABS: HEMATOCRIT 29.5 % (36.0-47.0); HEMOGLOBIN 9.7 g/dl (12.0-15.5); MEAN CORPUSCULAR HEMOGLOBIN 30.5 pg (27.0-33.0); MEAN CORPUSCULAR HGB CONC 32.9 g/dl (32.0-36.5); MEAN CORPUSCULAR VOLUME 92.8 fl (80.0-96.0); PLATELET COUNT, AUTOMATED 180 10^3/uL (150-450); RED BLOOD COUNT 3.18 10^6/uL (4.00-5.40); WHITE BLOOD COUNT 3.8 10^3/uL (4.0-10.0)
[2024-04-09 07:17] LABS: CALCIUM LEVEL 9.3 MG/DL (8.3-10.6); CREATININE FOR GFR 2.3 MG/DL (0.55-1.30); GLOMERULAR FILTRATION RATE 21.7 (>32); MAGNESIUM LEVEL 1.9 MG/DL (1.8-2.4)
[2024-04-09] MEDS: HEPARIN 1,000UNITS/ML 10ML VIAL (FOR RADIOLOGY & DIALYSIS ONLY) XX SCH (09:55)
[2024-04-09] MEDS ORDERED: CALC1CAP31 PO (11:18)
[2024-04-09] MEDS ORDERED: HYDR50TA46 PO (11:18)
[2024-04-09] MEDS ORDERED: LIDO5TD TD (11:18)
[2024-04-09 11:58] VITALS: BP 140/58; TEMP 98.8; O2SAT 98
== END 2024-04-09 14:15 | disposition home health service (06) | DRG 312 ==
LOC: EDBD 11:17 → M ED 11:17 → M ED INP 11:18 → OBSVTOIN 16:04 → M MSPAV 04-04 16:18
PROVIDERS: ADMIT Student in an Organized Health Care Education/Training Program; ATTEND Student in an Organized Health Care Education/Training Program
DX: I95.1 Orthostatic hypotension (principal); N18.6 End stage renal disease; I13.2 Hypertensive heart and chronic kidney disease with heart failure and with stage 5 chronic kidney disease, or end stage renal disease; I50.32 Chronic diastolic (congestive) heart failure; N25.81 Secondary hyperparathyroidism of renal origin; E11.22 Type 2 diabetes mellitus with diabetic chronic kidney disease; E03.9 Hypothyroidism, unspecified; E11.649 Type 2 diabetes mellitus with hypoglycemia without coma; E87.6 Hypokalemia; E78.5 Hyperlipidemia, unspecified; M10.9 Gout, unspecified; F41.9 Anxiety disorder, unspecified; F32.A Depression, unspecified; R29.6 Repeated falls; D63.1 Anemia in chronic kidney disease; Z88.5 Allergy status to narcotic agent; Z88.8 Allergy status to other drugs, medicaments and biological substances; Z79.899 Other long term (current) drug therapy; Z79.82 Long term (current) use of aspirin; Z79.890 Hormone replacement therapy; G47.33 Obstructive sleep apnea (adult) (pediatric); I35.0 Nonrheumatic aortic (valve) stenosis; Z66 Do not resuscitate

== ENCOUNTER 2024-07-08 09:18 | Inpatient (IN) | payer MEDICARE ==
[2024-07-08] VITALS (7 sets, daily range): BP systolic 158–187; BP diastolic 70–75; TEMP 98.1–99.6; O2SAT 89–98
[~2024-07-08] VITALS: Ht 142.2 cm; Wt 63.3 kg
[~2024-07-08 09:18] MED LIST changes: +CALC1CAP31 PO; +LIDO5TD TD; +LOSA100T46 PO; +POTA-298 PO; +PRAZ2CAP PO
[2024-07-08 10:17] LABS: BASO % 0.8 % (0.0-1.0); EOS # 0.1 10^3/uL (0.0-0.5); EOS % 2.3 % (0.0-3.0); HEMATOCRIT 34.9 % (36.0-47.0); HEMOGLOBIN 11.3 g/dl (12.0-15.5); LYMPH # 0.6 10^3/uL (1.5-5.0); LYMPH % 11.8 % (24.0-44.0); MEAN CORPUSCULAR HEMOGLOBIN 33.2 pg (27.0-33.0); MEAN CORPUSCULAR HGB CONC 32.4 g/dl (32.0-36.5); MEAN CORPUSCULAR VOLUME 102.6 fl (80.0-96.0); MONO # 0.5 10^3/uL (0.0-0.8); MONO % 9.1 % (2.0-8.0); NEUTROPHILS % 75.6 % (36.0-66.0); PLATELET COUNT, AUTOMATED 149 10^3/uL (150-450); WHITE BLOOD COUNT 5.3 10^3/uL (4.0-10.0)
[2024-07-08 10:40] LABS: LIPASE 38 U/L (12-53)
[2024-07-08 10:42] LABS: CPK CREATINE PHOSPHOKINASE 43 U/L (34-145)
[2024-07-08] MEDS ORDERED: CALC1CAP31 PO (10:42)
[2024-07-08] MEDS ORDERED: RENATAB5 PO (10:42)
[2024-07-08] MEDS ORDERED: SEVE800T3 PO (10:42)
[2024-07-08] MEDS ORDERED: ZOLO100T PO ×2 (10:42)
[2024-07-08] MEDS ORDERED: HOME MED LIST COMPLETE! XX SCH (10:45)
[2024-07-08 10:51] LABS: INR 0.98; PARTIAL THROMBOPLASTIN TIME 29.7 SECONDS (24.8-34.2); PROTHROMBIN TIME 13.3 SECONDS (12.5-14.5)
[2024-07-08 11:12] LABS: ALBUMIN 3.2 G/DL (3.2-5.2); ALKALINE PHOSPHATASE 67 U/L (35-104); ALT/SGPT 19 U/L (7.0-40); AST/SGOT 18 U/L (<34); BILIRUBIN,DIRECT < 0.1 MG/DL (<0.4); BILIRUBIN,TOTAL 0.3 MG/DL (0.3-1.2); BLOOD UREA NITROGEN 37 MG/DL (9-23); CALCIUM LEVEL 8.7 MG/DL (8.3-10.6); CARBON DIOXIDE LEVEL 30 MMOL/L (20-31); CHLORIDE LEVEL 101 MMOL/L (98-107); CK-MB VALUE MASS < 1.0 NG/ML (<3.6); CREATININE FOR GFR 3.87 MG/DL (0.55-1.30); FREE T4 1.03 NG/DL (0.89-1.76); GLOMERULAR FILTRATION RATE 11.9 (>32); GLUCOSE, FASTING 154 MG/DL (74-106); MB/CK RELATIVE INDEX 2.32 (< OR =4); POTASSIUM SERUM 6.8 MMOL/L (3.5-5.1); SODIUM LEVEL 139 MMOL/L (136-145); THYROID STIMULATING HORMONE 3.762 uIU/ML (0.55-4.78); TOTAL PROTEIN 6.5 G/DL (5.7-8.2)
[2024-07-08] MEDS ORDERED: DEXTROSE 50% 50ML VIAL IV STA (11:34)
[2024-07-08] MEDS: DEXTROSE 50% 50ML SYRINGE IV STA (11:57)
[2024-07-08] MEDS: HumuLIN R (REGULAR) INSULIN (NovoLIN R) **100U/ML** PER UNIT IV ONE (11:59)
[2024-07-08] MEDS: CALCIUM CHLORIDE 10% 1 GM/10 ML SYR IV ONE (11:59)
[2024-07-08] MEDS: SODIUM BICARBONATE 8.4% INJ 50ML SYRINGE IV ONE (11:59)
[2024-07-08] MEDS: PATIROMER SORBITEX CALCIUM 8.4 GM POWDER PACKET (VELTASSA) PO ONE ×2 (12:00→20:08)
[2024-07-08] MEDS ORDERED: SODIUM CHLORIDE 0.9% 1000 ML IV PRN (12:05)
[2024-07-08] MEDS ORDERED: LIDOCAINE 1% SDV 5ML VIAL SC PRN (12:05)
[2024-07-08] MEDS ORDERED: HEPARIN 1,000UNITS/ML 10ML VIAL (FOR RADIOLOGY & DIALYSIS ONLY) IV PRN (12:05)
[2024-07-08] MEDS ORDERED: HEPARIN 1,000UNITS/ML 10ML VIAL (FOR RADIOLOGY & DIALYSIS ONLY) XX SCH (12:05)
[2024-07-08] MEDS ORDERED: MOM 30ML SUSPENSION UDC PO PRN (12:40)
[2024-07-08] MEDS ORDERED: DEXTROSE 50% 50ML SYRINGE IV PRN (13:10)
[2024-07-08] MEDS ORDERED: GLUCOSE 4 GM CHEW PO PRN (13:10)
[2024-07-08] MEDS ORDERED: GLUCAGON INJ 1MG VIAL SC PRN (13:10)
[2024-07-08 13:45] LABS: MAGNESIUM LEVEL 2.1 MG/DL (1.8-2.4)
[2024-07-08] MEDS: ASPIRIN 81MG ENTERIC TABLET PO SCH (14:00)
[2024-07-08] MEDS: CETIRIZINE (ZyrTEC) 10 MG TAB PO SCH (14:00)
[2024-07-08] MEDS: allopurinoL 300 MG TAB PO SCH (14:01)
[2024-07-08] MEDS: FUROSEMIDE 40MG/4ML VIAL IV ONE (14:02)
[2024-07-08 14:21] LABS: CREATININE FOR GFR 3.82 MG/DL (0.55-1.30); GLOMERULAR FILTRATION RATE 12.1 (>32); POTASSIUM SERUM 5.2 MMOL/L (3.5-5.1)
[2024-07-08 16:57] LABS: CALCIUM LEVEL 9.2 MG/DL (8.3-10.6); CREATININE FOR GFR 4.01 MG/DL (0.55-1.30); GLOMERULAR FILTRATION RATE 11.4 (>32); POTASSIUM SERUM 5.6 MMOL/L (3.5-5.1)
[2024-07-08] MEDS: INSULIN LISPRO (NovoLOG) PER UNIT SC SCH ×2 (17:30→21:00)
[2024-07-08] MEDS: (RENVELA) SEVELAMER **CARBONate** 800 MG TAB PO SCH (18:42)
[2024-07-08] MEDS: HEPARIN SOD (PORCINE) 5000UNITS/ML 1ML VIAL/SYRINGE SC SCH (21:55)
[2024-07-08] MEDS: NYSTATIN 100,000 UNITS/GM TOPICAL PWD 15GM TOP SCH (21:57)
[2024-07-08] MEDS: DOCUSATE SODIUM 100MG CAPSULE PO SCH (23:31)
[2024-07-08] MEDS: ROSUVASTATIN 10 MG TAB (CRESTOR) PO SCH (23:31)
[2024-07-08] MEDS: SERTRALINE HCL 50 MG TAB PO SCH (23:31)
[2024-07-09 03:02] VITALS: BP 161/70; TEMP 97.4; O2SAT 98
[2024-07-09 05:45] LABS: HEMATOCRIT 31.4 % (36.0-47.0); HEMOGLOBIN 10.6 g/dl (12.0-15.5); MEAN CORPUSCULAR HEMOGLOBIN 33.1 pg (27.0-33.0); MEAN CORPUSCULAR HGB CONC 33.8 g/dl (32.0-36.5); MEAN CORPUSCULAR VOLUME 98.1 fl (80.0-96.0); PLATELET COUNT, AUTOMATED 145 10^3/uL (150-450); WHITE BLOOD COUNT 4.8 10^3/uL (4.0-10.0)
[2024-07-09] MEDS: LEVOTHYROXINE 137MCG TABLET (0.137MG) PO SCH (05:58)
[2024-07-09 06:10] LABS: CALCIUM LEVEL 8.6 MG/DL (8.3-10.6); CREATININE FOR GFR 2.38 MG/DL (0.55-1.30); GLOMERULAR FILTRATION RATE 20.9 (>32); POTASSIUM SERUM 3.9 MMOL/L (3.5-5.1)
[2024-07-09] MEDS ORDERED: HEPARIN 1,000UNITS/ML 10ML VIAL (FOR RADIOLOGY & DIALYSIS ONLY) IV PRN (07:55)
[2024-07-09] MEDS ORDERED: LIDOCAINE 1% SDV 5ML VIAL SC PRN (07:55)
[2024-07-09] MEDS ORDERED: SODIUM CHLORIDE 0.9% 1000 ML IV PRN (07:55)
[2024-07-09 08:00] VITALS: BP 197/93; TEMP 98.4; O2SAT 97
[2024-07-09] MEDS: CALCITRIOL 0.25 MCG CAP (S0169) PO SCH (09:00)
[2024-07-09] MEDS: SERTRALINE 100 MG TAB PO SCH (09:00)
[2024-07-09] MEDS: VITAMIN D 1,000 INTERNATIONAL UNITS TABLET PO SCH (09:00)
[2024-07-09 12:00] VITALS: BP 195/79; TEMP 98.4; O2SAT 97
[2024-07-09] MEDS: LOSARTAN 50MG TABLET PO SCH (12:12)
[2024-07-09] MEDS: HEPARIN 1,000UNITS/ML 10ML VIAL (FOR RADIOLOGY & DIALYSIS ONLY) XX SCH (13:49)
[2024-07-09 16:13] VITALS: BP 172/72; TEMP 98.4; O2SAT 100
[2024-07-09 20:00] VITALS: BP 151/65; TEMP 98.4; O2SAT 98
[2024-07-09] MEDS ORDERED: LOSARTAN 50MG TABLET PO SCH (21:00)
[2024-07-09] MEDS: ACETAMINOPHEN 325 MG TAB PO PRN (22:10)
[2024-07-10] VITALS: BP 153/68; TEMP 98.9; O2SAT 94
[2024-07-10] MEDS: SCOPOLAMINE 1MG TRANSDERMAL PATCH TOP ONE (01:35)
[2024-07-10 04:35] VITALS: BP 163/71; TEMP 97.9; O2SAT 95
[2024-07-10 07:46] LABS: CALCIUM LEVEL 8.3 MG/DL (8.3-10.6); CREATININE FOR GFR 2.67 MG/DL (0.55-1.30); GLOMERULAR FILTRATION RATE 18.3 (>32); POTASSIUM SERUM 3.7 MMOL/L (3.5-5.1)
[2024-07-10 08:02] VITALS: BP 184/72; TEMP 97.8; O2SAT 98
[2024-07-10 08:16] VITALS: BP 184/72
[2024-07-10 12:09] VITALS: BP 132/59; TEMP 98.4; O2SAT 96
[2024-07-11] MEDS ORDERED: HEPARIN 1,000UNITS/ML 10ML VIAL (FOR RADIOLOGY & DIALYSIS ONLY) IV PRN (06:00)
[2024-07-11] MEDS ORDERED: HEPARIN 1,000UNITS/ML 10ML VIAL (FOR RADIOLOGY & DIALYSIS ONLY) XX SCH (06:00)
[2024-07-11] MEDS ORDERED: SODIUM CHLORIDE 0.9% 1000 ML IV PRN (06:00)
[2024-07-11] MEDS ORDERED: LIDOCAINE 1% SDV 5ML VIAL SC PRN (06:00)
== END 2024-07-10 14:33 | disposition short-term general hospital (02) | DRG 640 ==
LOC: M ED 09:18 → EDBD 09:18 → M ED INP 12:37 → M PCU 16:26
PROVIDERS: ADMIT Student in an Organized Health Care Education/Training Program; ATTEND Student in an Organized Health Care Education/Training Program
DX: E87.5 Hyperkalemia (principal); N18.6 End stage renal disease; I50.32 Chronic diastolic (congestive) heart failure; I13.2 Hypertensive heart and chronic kidney disease with heart failure and with stage 5 chronic kidney disease, or end stage renal disease; I45.3 Trifascicular block; F32.A Depression, unspecified; D64.9 Anemia, unspecified; E11.22 Type 2 diabetes mellitus with diabetic chronic kidney disease; E21.1 Secondary hyperparathyroidism, not elsewhere classified; E03.9 Hypothyroidism, unspecified; I95.1 Orthostatic hypotension; I44.1 Atrioventricular block, second degree; G47.33 Obstructive sleep apnea (adult) (pediatric); M10.9 Gout, unspecified; I35.0 Nonrheumatic aortic (valve) stenosis; Z88.5 Allergy status to narcotic agent; Z88.8 Allergy status to other drugs, medicaments and biological substances; Z79.899 Other long term (current) drug therapy; Z79.82 Long term (current) use of aspirin; Z79.890 Hormone replacement therapy; Z79.4 Long term (current) use of insulin

== ENCOUNTER 2024-08-21 05:48 | Inpatient (IN) | payer MEDICARE ==
[~2024-08-21] VITALS: Ht 144.8 cm; Wt 67.4 kg
[~2024-08-21 05:48] MED LIST changes: +RENATAB5 PO; +SEVE800T3 PO; +ZOLO100T PO
[2024-08-21 06:44] LABS: BASO % 0.5 % (0.0-1.0); EOS % 0.2 % (0.0-3.0); HEMATOCRIT 34.8 % (36.0-47.0); HEMOGLOBIN 11.1 g/dl (12.0-15.5); LYMPH # 0.4 10^3/uL (1.5-5.0); LYMPH % 6.8 % (24.0-44.0); MEAN CORPUSCULAR HEMOGLOBIN 33.1 pg (27.0-33.0); MEAN CORPUSCULAR HGB CONC 31.9 g/dl (32.0-36.5); MEAN CORPUSCULAR VOLUME 103.9 fl (80.0-96.0); MONO # 0.2 10^3/uL (0.0-0.8); MONO % 2.6 % (2.0-8.0); NEUTROPHILS # 5.2 10^3/uL (1.5-8.5); NEUTROPHILS % 89.7 % (36.0-66.0); PLATELET COUNT, AUTOMATED 148 10^3/uL (150-450); RED BLOOD COUNT 3.35 10^6/uL (4.00-5.40); WHITE BLOOD COUNT 5.8 10^3/uL (4.0-10.0)
[2024-08-21 07:47] LABS: ALBUMIN 3.4 G/DL (3.2-5.2); BILIRUBIN,DIRECT 0.2 MG/DL (<0.4); BILIRUBIN,TOTAL 0.4 MG/DL (0.3-1.2); CALCIUM LEVEL 8.6 MG/DL (8.3-10.6); CREATININE FOR GFR 4.89 MG/DL (0.55-1.30); GLOMERULAR FILTRATION RATE 8.5 (>32); MAGNESIUM LEVEL 2.5 MG/DL (1.8-2.4); POTASSIUM SERUM 4.2 MMOL/L (3.5-5.1); THYROID STIMULATING HORMONE 3.041 uIU/ML (0.55-4.78); TOTAL PROTEIN 6.4 G/DL (5.7-8.2)
[2024-08-21] MEDS: ONDANSETRON 4MG 2ML VIAL IV ONE (08:11)
[2024-08-21] MEDS: ACETAMINOPHEN 325 MG TAB PO ONE (08:11)
[2024-08-21] MEDS: FUROSEMIDE 40MG/4ML VIAL IV ONE (08:41)
[2024-08-21] MEDS ORDERED: GLUCAGON INJ 1MG VIAL SC PRN (10:50)
[2024-08-21] MEDS ORDERED: DEXTROSE 50% 50ML SYRINGE IV PRN (10:50)
[2024-08-21] MEDS ORDERED: GLUCOSE 4 GM CHEW PO PRN (10:50)
[2024-08-21] MEDS ORDERED: SODIUM CHLORIDE 0.9% 1000 ML IV PRN (11:45)
[2024-08-21] MEDS ORDERED: HEPARIN 1,000UNITS/ML 10ML VIAL (FOR RADIOLOGY & DIALYSIS ONLY) IV PRN (11:45)
[2024-08-21 12:06] VITALS: BP 149/91; TEMP 97.3; O2SAT 97
[2024-08-21] MEDS: INSULIN LISPRO (NovoLOG) PER UNIT SC SCH ×2 (12:15→20:42)
[2024-08-21] MEDS: BISACODYL 10MG SUPP PR SCH (13:12)
[2024-08-21] MEDS: HEPARIN 1,000UNITS/ML 10ML VIAL (FOR RADIOLOGY & DIALYSIS ONLY) XX SCH (13:26)
[2024-08-21] MEDS ORDERED: HOME MED LIST COMPLETE! XX SCH (13:45)
[2024-08-21] MEDS ORDERED: CARV12.5 PO (16:13)
[2024-08-21] MEDS: ONDANSETRON 4MG 2ML VIAL IV PRN (17:38)
[2024-08-21 19:40] VITALS: BP 144/82; TEMP 97.3; O2SAT 90
[2024-08-21 20:10] VITALS: BP 144/87; TEMP 97.3; O2SAT 90
[2024-08-21 20:57] LABS: KETONE, URINE AUTO RFX NEGATIVE (NEGATIVE); LEUKOCYTE ESTERASE UR AUTO RFX 3+ (NEGATIVE); NITRITE, URINE AUTO RFX NEGATIVE (NEGATIVE); RBC, URINE AUTO RFX 3 /HPF (0-3); SQUAM EPITHELIAL CELL UR AURFX 26 /HPF (0-6); WBC, URINE AUTO RFX 61 /HPF (0-3)
[2024-08-21] MEDS ORDERED: KETOROLAC 30 MG/ML 1ML VIAL IV ONE (21:30)
[2024-08-21] MEDS ORDERED: PILL CUTTER 1 EACH XX PRN (21:55)
[2024-08-21] MEDS: HYDROmorphone 2 MG TAB PO ONE (22:04)
[2024-08-22 03:18] VITALS: BP 134/83; TEMP 97.3; O2SAT 93
[2024-08-22 05:22] LABS: HEMATOCRIT 34.1 % (36.0-47.0); HEMOGLOBIN 10.9 g/dl (12.0-15.5); MEAN CORPUSCULAR VOLUME 103.3 fl (80.0-96.0); PLATELET COUNT, AUTOMATED 160 10^3/uL (150-450); WHITE BLOOD COUNT 6.9 10^3/uL (4.0-10.0)
[2024-08-22 05:53] LABS: CALCIUM LEVEL 8.5 MG/DL (8.3-10.6); CREATININE FOR GFR 3.48 MG/DL (0.55-1.30); GLOMERULAR FILTRATION RATE 12.8 (>32); POTASSIUM SERUM 5.6 MMOL/L (3.5-5.1)
[2024-08-22] MEDS ORDERED: SODIUM CHLORIDE 0.9% 1000 ML IV PRN (06:00)
[2024-08-22] MEDS ORDERED: HEPARIN 1,000UNITS/ML 10ML VIAL (FOR RADIOLOGY & DIALYSIS ONLY) IV PRN (06:00)
[2024-08-22] MEDS ORDERED: HEPARIN 1,000UNITS/ML 10ML VIAL (FOR RADIOLOGY & DIALYSIS ONLY) XX SCH (06:00)
[2024-08-22] MEDS ORDERED: LIDOCAINE 1% SDV 5ML VIAL SC PRN (06:00)
[2024-08-22 11:29] VITALS: BP 135/82; TEMP 97; O2SAT 98
[2024-08-22 12:00] VITALS: BP 134/81; TEMP 97.2; O2SAT 91
[2024-08-22] MEDS: MIRALAX *UNIT DOSE* 17GM PACKET PO ONE (18:13)
[2024-08-22] MEDS: VITAMIN D 1,000 INTERNATIONAL UNITS TABLET PO SCH (18:14)
[2024-08-22] MEDS: SENOKOT S TAB PO ONE (18:14)
[2024-08-22] MEDS: (RENVELA) SEVELAMER **CARBONate** 800 MG TAB PO SCH (18:14)
[2024-08-22] MEDS: CALCITRIOL 0.25 MCG CAP (S0169) PO SCH (18:14)
[2024-08-22] MEDS: LACTULOSE 20GM/30ML SYRUP UDC PO ONE (18:15)
[2024-08-22 20:14] VITALS: BP 133/81; TEMP 97.5; O2SAT 92
[2024-08-22 20:50] VITALS: O2SAT 85
[2024-08-22 20:51] VITALS: O2SAT 92
[2024-08-22] MEDS: PRAZOSIN 1 MG CAP PO SCH (20:58)
[2024-08-22] MEDS: LOSARTAN 50MG TABLET PO SCH (20:59)
[2024-08-22] MEDS: ROSUVASTATIN 10 MG TAB (CRESTOR) PO SCH (20:59)
[2024-08-22] MEDS: ACETAMINOPHEN 650MG ER TAB (TYLENOL ARTHRITIS) PO SCH (21:00)
[2024-08-22] MEDS: SERTRALINE HCL 50 MG TAB PO SCH (21:00)
[2024-08-23 04:31] VITALS: BP 131/80; TEMP 97.5; O2SAT 93
[2024-08-23 04:51] LABS: HEMATOCRIT 33.4 % (36.0-47.0); HEMOGLOBIN 10.7 g/dl (12.0-15.5); MEAN CORPUSCULAR HEMOGLOBIN 32.8 pg (27.0-33.0); MEAN CORPUSCULAR VOLUME 102.5 fl (80.0-96.0); PLATELET COUNT, AUTOMATED 155 10^3/uL (150-450); RED BLOOD COUNT 3.26 10^6/uL (4.00-5.40); WHITE BLOOD COUNT 6.2 10^3/uL (4.0-10.0)
[2024-08-23 05:15] LABS: CALCIUM LEVEL 8.6 MG/DL (8.3-10.6); CREATININE FOR GFR 3.18 MG/DL (0.55-1.30); GLOMERULAR FILTRATION RATE 14.2 (>32); POTASSIUM SERUM 4.1 MMOL/L (3.5-5.1)
[2024-08-23] MEDS: LEVOTHYROXINE 137MCG TABLET (0.137MG) PO SCH (05:58)
[2024-08-23] MEDS: SERTRALINE 100 MG TAB PO SCH (08:11)
[2024-08-23] MEDS: ASPIRIN 81MG ENTERIC TABLET PO SCH (08:12)
[2024-08-23 08:15] VITALS: BP 131/80
[2024-08-23] MEDS: allopurinoL 300 MG TAB PO SCH (08:15)
[2024-08-23] MEDS: CETIRIZINE (ZyrTEC) 10 MG TAB PO SCH (08:15)
[2024-08-23] MEDS: CARVedilol 12.5 MG TAB PO SCH (08:15)
[2024-08-23] MEDS: DOCUSATE SODIUM 100MG CAPSULE PO SCH (08:15)
[2024-08-23 12:00] VITALS: BP 104/60; TEMP 97.7; O2SAT 88
[2024-08-23] MEDS ORDERED: ONDA-282 PO (17:12)
[2024-08-23] MEDS: ONDANSETRON 4MG ORAL DISINTEGRATING TAB PO PRN (17:51)
== END 2024-08-23 18:18 | disposition home or self-care (01) | DRG 291 ==
LOC: M ED 05:48 → M ED INP 10:42 → M MSPAV 11:57
PROVIDERS: ADMIT General Practice; ATTEND General Practice
PROC: 5A1D70Z Performance of Urinary Filtration, Intermittent, Less than 6 Hours Per Day (ICD-10-PCS; principal; 2024-08-22)
DX: I13.2 Hypertensive heart and chronic kidney disease with heart failure and with stage 5 chronic kidney disease, or end stage renal disease (principal); N18.6 End stage renal disease; I50.33 Acute on chronic diastolic (congestive) heart failure; N25.81 Secondary hyperparathyroidism of renal origin; E87.20 Acidosis, unspecified; R26.89 Other abnormalities of gait and mobility; R11.2 Nausea with vomiting, unspecified; I95.1 Orthostatic hypotension; E87.6 Hypokalemia; I70.0 Atherosclerosis of aorta; E11.22 Type 2 diabetes mellitus with diabetic chronic kidney disease; G47.33 Obstructive sleep apnea (adult) (pediatric); E78.5 Hyperlipidemia, unspecified; E03.9 Hypothyroidism, unspecified; F32.A Depression, unspecified; M10.9 Gout, unspecified; K59.00 Constipation, unspecified; Z79.82 Long term (current) use of aspirin; Z79.890 Hormone replacement therapy; Z79.899 Other long term (current) drug therapy; Z88.5 Allergy status to narcotic agent; Z88.8 Allergy status to other drugs, medicaments and biological substances; Z95.0 Presence of cardiac pacemaker; Z99.2 Dependence on renal dialysis; Z90.49 Acquired absence of other specified parts of digestive tract; Z90.79 Acquired absence of other genital organ(s)

== ENCOUNTER 2024-11-05 07:42 | Emergency (ER) | payer MEDICARE ==
[~2024-11-05] VITALS: Ht 149.9 cm; Wt 61.1 kg
[~2024-11-05 07:42] MED LIST changes: +CVS10CAP8 PO; -INSU100I24 SC; +INSU100I24 SUBQ; +LISI40TA10 PO; -LISI40TA4 PO; -MELA10CA2 PO; +ONDA-282 PO
[2024-11-05 07:50] VITALS: TEMP 96.1
[2024-11-05 08:44] LABS: BASO # 0.0 10^3/uL (0.0-0.2); BASO % 0.7 % (0.0-1.0); EOS # 0.0 10^3/uL (0.0-0.5); EOS % 0.7 % (0.0-3.0); LYMPH # 0.5 10^3/uL (1.5-5.0); LYMPH % 8.7 % (24.0-44.0); MONO # 0.4 10^3/uL (0.0-0.8); MONO % 6.7 % (2.0-8.0); NEUTROPHILS # 4.7 10^3/uL (1.5-8.5); NEUTROPHILS % 82.8 % (36.0-66.0); PLATELET COUNT, AUTOMATED 152 10^3/uL (150-450)
[2024-11-05] MEDS ORDERED: CALC667T2 PO (10:03)
[2024-11-05] MEDS ORDERED: ONDA-282 PO ×2 (10:03→12:36)
[2024-11-05] MEDS ORDERED: LEVO150T7 PO (10:03)
[2024-11-05] MEDS ORDERED: HOME MED LIST COMPLETE! XX SCH (10:05)
[2024-11-05 12:25] LABS: ALT/SGPT 33.0 U/L (7.0-40); AST/SGOT 26.0 U/L (<34); CALCIUM LEVEL 8.9 MG/DL (8.3-10.6); CARBON DIOXIDE LEVEL 24.0 MMOL/L (20-31); CHLORIDE LEVEL 94.0 MMOL/L (98-107); CREATININE FOR GFR 4.88 MG/DL (0.55-1.30); GLOMERULAR FILTRATION RATE 8.5 (>32); POTASSIUM SERUM 4.8 MMOL/L (3.5-5.1); SODIUM LEVEL 136.0 MMOL/L (136-145)
[2024-11-05 12:43] VITALS: BP 116/69; O2SAT 93
== END 2024-11-05 12:52 | disposition home or self-care (01) ==
LOC: M ED 07:42 → EDBD 07:42 → M ED 12:52
DX: R11.0 Nausea (principal); N18.6 End stage renal disease; R18.8 Other ascites; E11.9 Type 2 diabetes mellitus without complications; I10 Essential (primary) hypertension; G47.33 Obstructive sleep apnea (adult) (pediatric); Z88.6 Allergy status to analgesic agent; Z88.8 Allergy status to other drugs, medicaments and biological substances; Z79.899 Other long term (current) drug therapy; Z79.1 Long term (current) use of non-steroidal anti-inflammatories (NSAID); Z79.82 Long term (current) use of aspirin; Z79.4 Long term (current) use of insulin